=== PATIENT | female | born 1945 | race Caucasian/White ===

== ENCOUNTER 2020-04-24 12:10 | Outpatient (REF) | payer MEDICARE, SELFPAY | END 2020-04-24 12:11 | disposition home or self-care (01) | LOC: HO.LAB 12:10 | PROVIDERS: PCP Internal Medicine Geriatric Medicine; Visit Provider Internal Medicine | DX: Z20.828 Contact with and (suspected) exposure to other viral communicable diseases (principal) | CPT/HCPCS: C9803; U0003 ==

== ENCOUNTER → 2020-05-19 10:06 | Outpatient (BNVA) | payer MEDICARE, SELFPAY | PROVIDERS: PCP Internal Medicine Geriatric Medicine; Referring Provider Internal Medicine Geriatric Medicine; Visit Provider Internal Medicine Gastroenterology | DX: A04.8 Other specified bacterial intestinal infections (principal); K21.9 Gastro-esophageal reflux disease without esophagitis; D12.6 Benign neoplasm of colon, unspecified | CPT/HCPCS: Q3014 ==

== ENCOUNTER → 2020-07-03 14:21 | Outpatient (BNV) | payer MEDICARE, SELFPAY | PROVIDERS: PCP Internal Medicine Geriatric Medicine; Visit Provider Internal Medicine Medical Oncology | DX: N60.91 Unspecified benign mammary dysplasia of right breast (principal); N60.92 Unspecified benign mammary dysplasia of left breast | CPT/HCPCS: 99212; 99213; 99214 ==

== ENCOUNTER → 2020-07-29 14:57 | Outpatient (BNVA) | payer MEDICARE, SELFPAY | PROVIDERS: PCP Internal Medicine Geriatric Medicine; Visit Provider Surgery | DX: N60.91 Unspecified benign mammary dysplasia of right breast (principal); N60.92 Unspecified benign mammary dysplasia of left breast | CPT/HCPCS: 99212 ==

== ENCOUNTER → 2020-08-29 10:43 | Outpatient (BNVA) | payer MEDICARE, SELFPAY | PROVIDERS: PCP Internal Medicine Geriatric Medicine; Visit Provider Internal Medicine Gastroenterology | DX: A04.8 Other specified bacterial intestinal infections (principal); D12.6 Benign neoplasm of colon, unspecified; F17.200 Nicotine dependence, unspecified, uncomplicated; Z71.6 Tobacco abuse counseling | CPT/HCPCS: 99212 ==

== ENCOUNTER 2020-09-19 10:58 | Outpatient (REF) | payer MEDICARE, SELFPAY ==
--- NOTE | ~2020-09-19 | MM_ITS ---
EXAMINATION: BONE DENSITOMETRY CLINICAL INDICATION: Screening for osteoporosis. COMPARISON: Previous BD dated 01/13/2016 and baseline BD dated 06/16/2007. TECHNIQUE: Using a [employer] DXA System (software version: 13.1) manufactured by [employer], dual-energy x-ray absorptiometry was performed of the lumbar spine and left hip. The images are of good technical quality. Summary results are attached. FINDINGS: AP SPINE L1-L4: Current: BMD 1.166 g/cm2, Z-score 1.2, T-score -0.1, normal, 4.9% increase from previous, 3.0% decrease from baseline (<5% change is not significant). Prior: BMD 1.112 g/cm2. Baseline: BMD 1.202 g/cm2. LEFT FEMUR, NECK: Current: BMD 0.901 g/cm2, Z-score 0.6, T-score -1.0, normal. Prior: BMD 0.915 g/cm2. Baseline: BMD 0.955 g/cm2. LEFT FEMUR, TOTAL: Current: BMD 1.083 g/cm2, Z-score 2.0, T-score 0.6, normal, 4.0% increase from previous, 2.2% decrease from baseline (<5% change is not significant). Prior: BMD 1.041 g/cm2. Baseline: BMD 1.107 g/cm2. IDENTIFIED RISK FACTORS: Height loss, tobacco use (current smoker), menopause. HISTORY OF FRACTURE: None listed. MEDICATIONS: Evista. MM/XR DEXA axial skeleton IMPRESSION: 1. DIAGNOSIS: Normal bone density based on the lowest T-score value of -1.0 in the femoral neck applying World Health Organization criteria. 2. 10-YEAR FRACTURE RISK PREDICTION, FRAX: Major osteoporotic fracture (clinical spine, forearm, hip or shoulder) 5.1%. Hip fracture 1.0%. 3. Treatment Recommendations: NOF guidelines recommend consideration for treatment in postmenopausal women and men age 50 and older presenting with the following: -A hip or vertebral (clinical or morphometric) fracture. -T-score less than or equal to -2.5 at the femoral neck or spine after appropriate evaluation to exclude secondary causes. -Low bone mass at the hip or spine and a 10-year fracture probability by FRAX of greater than or equal to 3% for hip fracture or greater than or equal to 20% for major osteoporotic fracture based on the [place] adapted WHO algorithm. 4. Other Recommendations: All treatment decisions require clinical judgment and consideration of individual patient factors, including patient preferences, comorbidities, previous drug use, risk factors not captured in the FRAX model (e.g. frailty, falls, vitamin D deficiency, increased bone turnover, interval significant decline in bone density) and possible under or overestimation of fracture risk by FRAX. FUTURE SCAN RECOMMENDATION: People with diagnosed cases of osteoporosis or at high risk for fracture should have regular bone mineral density tests. For patients eligible for Medicare, routine testing is allowed once every 2 years. The testing frequency can be increased to one year for patients who have rapidly progressing disease, those who are receiving or discontinuing medical therapy to restore bone mass, or have additional risk factors.
--- NOTE | ~2020-09-19 | MM_ITS ---
EXAMINATION: MM SCREENING DIGITAL BREAST TOMOSYNTHESIS, BILATERAL CLINICAL INFORMATION: Screening. Asymptomatic. Prior history left breast cancer. 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 COMPARISON: Mammography: 07/27/2019, 07/21/2018, 06/22/2017, 06/15/2016, MRI breasts 06/01/2018 TECHNIQUE: Digital breast tomosynthesis is performed in both the craniocaudal and mediolateral oblique views along with computer-aided detection (CAD). Synthesized 2D images are generated from the tomosynthesis. FINDINGS: The breasts are extremely dense, which lowers the sensitivity of mammography (ACR BI-RADS breast composition Category d). Parenchymal pattern is similar to prior studies. There are postsurgical changes left breast 11:00 position with stable scarring and benign coarse dystrophic calcifications in the scar. There is stable parenchymal asymmetry upper right breast on MLO view. Neither breast shows interval mass or architectural abnormality or abnormal calcifications. No developing density. There are scattered round benign calcifications in each breast. The axilla are unremarkable. MM/MM tomosynthesis screening BI IMPRESSION: No significant changes from prior studies. ASSESSMENT: BI-RADS 2: Benign RECOMMENDATION: Routine annual mammography screening. This patient's information was entered into a reminder system with a target due date for their next mammogram.
== END 2020-09-19 10:59 | disposition home or self-care (01) ==
LOC: HO.MAMMO 10:58
PROVIDERS: Visit Provider Advanced Practice Midwife
DX: Z12.31 Encounter for screening mammogram for malignant neoplasm of breast (principal); Z13.820 Encounter for screening for osteoporosis; N62 Hypertrophy of breast; F17.210 Nicotine dependence, cigarettes, uncomplicated; R29.890 Loss of height; Z78.0 Asymptomatic menopausal state
CPT/HCPCS: 77063; 77067; 77080

== ENCOUNTER 2020-11-05 14:35 | Outpatient (REF) | payer MEDICARE, SELFPAY ==
--- NOTE | ~2020-11-05 | MR_ITS ---
EXAMINATION: MR BREAST WITHOUT AND WITH CONTRAST, BILATERAL CLINICAL INFORMATION: High-risk screening. History of left breast cancer. History of lobular neoplasia, right breast. COMPARISON: MRI 06/01/2018 TECHNIQUE: Imaging was performed with a dedicated breast coil. Prior to the administration of contrast, bilateral axial T1 and bilateral axial T2 weighted sequences were obtained. After the uneventful administration of?7 mL of Gadavist, dynamic contrast-enhanced VIBRANT series through the breasts in the axial plane were performed. Subtracted images were performed and reviewed. A delayed sagittal sequence through both breasts was acquired. Additionally, CAD post-processing, including maximum intensity projections, 3-D reconstructions and kinetic analysis, were performed an independent workstation and reviewed by the interpreting radiologist is a portion of this exam. FINDINGS: The patient's fibroglandular tissue demonstrates minimal background enhancement. LEFT BREAST: Architectural distortion in the 10:00 position of the left breast at the site of previous lumpectomy demonstrates no associated enhancement on review the postcontrast images. No suspicious masslike or non-masslike enhancement. No abnormal skin thickening or nipple retraction. No abnormal architectural distortion. Review of the T2 weighted images demonstrates no fibrocystic changes or dilated ducts. Review of kinetic images reveals no additional findings. RIGHT BREAST: No suspicious masslike or non-masslike enhancement. No abnormal skin thickening or nipple retraction. No abnormal architectural distortion. Review of the T2 weighted images demonstrates no fibrocystic changes or dilated ducts. Review of kinetic images reveals no additional findings. There is enlargement of multiple left axillary lymph nodes. For example, there is a rounded lymph node with effacement of the fatty hilum just along the lateral aspect of the pectoralis minor muscle measuring up to 0.9 cm size (image 7, series 4). Additional lymph node located more anteriorly measures up to approximately 1.3 cm in size and demonstrates cortical thickening up to 0.5 cm (image 8, series 4). Vaccination status unknown. No abnormal right axillary or internal mammary chain lymph nodes. Limited views of the chest and abdomen are unremarkable. MR/MR breast BI wo/w con IMPRESSION: 1. Asymmetrically enlarged left axillary lymph nodes. Recommend diagnostic ultrasound evaluation. 2. No MR specific evidence of malignancy in either breast. ASSESSMENT: BI-RADS 0 - Incomplete. RECOMMENDATIONS: Left axillary ultrasound.
[2020-11-05 15:46] LABS: Blood Urea Nitrogen 10 mg/dL (9-16); Estimated Glomerular Filt Rate > 60
== END 2020-11-05 14:36 | disposition home or self-care (01) ==
LOC: HO.MRI 14:35
PROVIDERS: Visit Provider Advanced Practice Midwife
DX: N62 Hypertrophy of breast (principal)
CPT/HCPCS: 36415; 77049; 82565; 84520; A9585

== ENCOUNTER 2020-11-11 09:02 | Outpatient (REF) | payer MEDICARE, SELFPAY ==
[2020-11-11 10:01] LABS: Hematocrit 38.4 % (37-47); Hemoglobin 12.8 g/dl (12.0-16.0); Mean Corpuscular HGB Conc 33.3 g/dl (31.0-35.0); Mean Corpuscular Hemoglobin 29.9 pg (27.0-33.0); Mean Corpuscular Volume 89.7 fL (80-98); Platelet Count 208 X10*3/uL (160-400); Red Blood Count 4.28 X10*6/uL (4.20-5.50); Red Cell Distribution Width 14.6 % (11.0-16.0); White Blood Count 5.4 X10*3/uL (4.8-10.8)
[2020-11-11 10:35] LABS: Alanine Aminotransferase 13 U/L (0-31); Albumin Level 4.4 g/dL (3.5-5.0); Alkaline Phosphatase 47 U/L (39-117); Anion Gap 13 (12-20); Aspartate Amino Transferase 18 U/L (5-31); Bilirubin Total 0.7 mg/dL (0.0-1.0); Blood Urea Nitrogen 10 mg/dL (9-16); Calcium 9.2 mg/dL (8.4-10.2); Carbon Dioxide 24 mmol/L (22-29); Chloride 109 mmol/L (96-108); Cholesterol 176 mg/dL; Estimated Glomerular Filt Rate > 60; Glucose Random 120 mg/dL (60-115); HDL Cholesterol 36 mg/dL; LDL Cholesterol Calculated 108 mg/dl; Potassium 3.7 mmol/L (3.3-5.1); Sodium 142 mmol/L (135-145); Total Protein 6.9 g/dL (6.5-8.0); Triglycerides 161 mg/dL
== END 2020-11-11 09:03 | disposition home or self-care (01) ==
LOC: HO.LAB 09:02
PROVIDERS: PCP Internal Medicine Geriatric Medicine; Visit Provider Internal Medicine Geriatric Medicine
DX: E78.00 Pure hypercholesterolemia, unspecified (principal); I10 Essential (primary) hypertension
CPT/HCPCS: 36415; 80053; 80061; 85027

== ENCOUNTER → 2020-11-13 13:22 | Outpatient (BNVA) | payer MEDICARE, SELFPAY | PROVIDERS: Visit Provider Urology | DX: R39.15 Urgency of urination (principal); R35.0 Frequency of micturition; N39.3 Stress incontinence (female) (male) | CPT/HCPCS: Q3014 ==

== ENCOUNTER 2020-11-14 10:53 | Outpatient (REF) | payer MEDICARE, SELFPAY ==
--- NOTE | ~2020-11-14 | US_ITS ---
EXAMINATION: US DIAGNOSTIC ULTRASOUND BREAST, LEFT CLINICAL INFORMATION: Asymmetrically enlarged left axillary lymph nodes on MRI. COMPARISON: MRI of 11/05/2020 and mammography of 09/19/2020. TECHNIQUE: Ultrasound of the breast is performed with real-time kat scale imaging and color Doppler. FINDINGS: Within the left axilla there are approximately 4 lymph nodes present some of which have thickened cortex to up to 6 mm in diameter. The fatty clefts appear unremarkable without infiltration. No lobulation of the cortex is identified. The patient states that she had her COVID vaccine injection in her left arm. Recommend 3 to 6 month follow-up left axillary ultrasound. Results are discussed with the patient at time of visit. US/US breast LT limited IMPRESSION: Cortical thickening without lobulation or fatty hilum infiltration within some left axillary lymph nodes. Patient had injection in her left arm. Recommend 3 to 6 month follow-up ultrasound. ASSESSMENT: BI-RADS 3: Probably Benign. RECOMMENDATION: Diagnostic ultrasound in 3 to 6 months. This patient's information was entered into a reminder system with a target due date for their next mammogram.
== END 2020-11-14 10:54 | disposition home or self-care (01) ==
LOC: HO.MAMMO 10:53
PROVIDERS: PCP Internal Medicine Geriatric Medicine; Visit Provider Advanced Practice Midwife
DX: N62 Hypertrophy of breast (principal); R59.0 Localized enlarged lymph nodes; R92.8 Other abnormal and inconclusive findings on diagnostic imaging of breast
CPT/HCPCS: 76642

== ENCOUNTER → 2020-11-20 14:38 | Outpatient (BNVA) | payer MEDICARE, SELFPAY | PROVIDERS: PCP Internal Medicine Geriatric Medicine; Referring Provider Internal Medicine Geriatric Medicine; Visit Provider Surgery | DX: N60.91 Unspecified benign mammary dysplasia of right breast (principal); N60.92 Unspecified benign mammary dysplasia of left breast | CPT/HCPCS: 99212 ==

== ENCOUNTER 2020-12-12 12:49 | Outpatient (REF) | payer MEDICARE, SELFPAY | END 2020-12-12 12:50 | disposition home or self-care (01) | LOC: HO.LNP 12:49 | PROVIDERS: PCP Internal Medicine Geriatric Medicine; Referring Provider Internal Medicine Geriatric Medicine; Visit Provider Internal Medicine Gastroenterology | DX: A04.8 Other specified bacterial intestinal infections (principal); D12.6 Benign neoplasm of colon, unspecified | CPT/HCPCS: 83013 ==

== ENCOUNTER → 2021-01-06 13:29 | Outpatient (BNVA) | payer MEDICARE, SELFPAY | PROVIDERS: PCP Internal Medicine Geriatric Medicine; Visit Provider Urology | DX: R35.0 Frequency of micturition (principal); R39.15 Urgency of urination; N39.3 Stress incontinence (female) (male) | CPT/HCPCS: 52000; 99212 ==

== ENCOUNTER 2021-01-27 14:34 | Outpatient (REF) | payer MEDICARE, SELFPAY ==
--- NOTE | ~2021-01-27 | XR_ITS ---
EXAMINATION: XR SHOULDER, RIGHT CLINICAL INFORMATION: Right shoulder pain. COMPARISON: None TECHNIQUE: AP external rotation, Grashey, scapular Y, and axillary views of the right shoulder. FINDINGS: Moderate right acromio clavicular degenerative joint changes are seen. The right glenohumeral joint is unremarkable. Mild degenerative changes are seen at the rotator cuff insertion on the greater tuberosity. There is no acute fracture or dislocation. The soft tissues are unremarkable. XR/XR shoulder RT min 2V IMPRESSION: Degenerative joint changes as detailed above without acute abnormality.
== END 2021-01-27 14:35 | disposition home or self-care (01) ==
LOC: HO.XRAY 14:34
PROVIDERS: PCP Internal Medicine Geriatric Medicine; Visit Provider Internal Medicine Geriatric Medicine
DX: M25.511 Pain in right shoulder (principal)
CPT/HCPCS: 73030

== ENCOUNTER 2021-02-17 13:46 | Outpatient (REF) | payer MEDICARE, SELFPAY ==
--- NOTE | ~2021-02-17 | US_ITS ---
EXAMINATION: US BREAST/AXILLA, LEFT CLINICAL INFORMATION: 75-year-old with mild thickening left axillary nodes following recent second dose COVID vaccination late August 2020. Follow-up left axillary ultrasound. No palpable abnormality or tenderness noted by patient. COMPARISON: Digital breast tomosynthesis 09/19/2020, MRI breasts 11/05/2020, targeted left axillary ultrasound 11/14/2020. TECHNIQUE: Ultrasound left axilla raises performed using grayscale imaging and color Doppler. FINDINGS: There is no interval or persistent left axillary adenopathy. There are several nodes demonstrated in the left axilla all with normal santos architecture and normal color flow pattern. Cortical thickness is under 3.5 mm, previously up to 6 mm on prior ultrasound. Results are discussed with the patient at time of visit. US/US breast LT limited IMPRESSION: Left axillary node decreased from prior exam. No axillary adenopathy. ASSESSMENT: BI-RADS 2: Benign RECOMMENDATION: Routine annual mammography screening. This patient's information was entered into a reminder system with a target due date for their next mammogram.
== END 2021-02-17 13:47 | disposition home or self-care (01) ==
LOC: HO.MAMMO 13:46
PROVIDERS: PCP Internal Medicine Geriatric Medicine; Visit Provider Advanced Practice Midwife
DX: N63.32 Unspecified lump in axillary tail of the left breast (principal)
CPT/HCPCS: 76642

== ENCOUNTER → 2021-03-31 14:59 | Outpatient (BNVA) | payer MEDICARE, SELFPAY | PROVIDERS: PCP Internal Medicine Geriatric Medicine; Referring Provider Internal Medicine Geriatric Medicine; Visit Provider Surgery | DX: R59.0 Localized enlarged lymph nodes (principal); N60.92 Unspecified benign mammary dysplasia of left breast; N60.91 Unspecified benign mammary dysplasia of right breast; E78.00 Pure hypercholesterolemia, unspecified; I10 Essential (primary) hypertension; F17.210 Nicotine dependence, cigarettes, uncomplicated; Z82.49 Family history of ischemic heart disease and other diseases of the circulatory system; Z80.1 Family history of malignant neoplasm of trachea, bronchus and lung; Z88.6 Allergy status to analgesic agent; Z88.0 Allergy status to penicillin | CPT/HCPCS: 99212 ==

== ENCOUNTER 2021-04-14 14:00 | Outpatient (RCR) | payer MEDICARE, SELFPAY | END 2021-04-15 10:28 | disposition home or self-care (01) | LOC: HO.PT 14:00 | PROVIDERS: PCP Internal Medicine Geriatric Medicine; Visit Provider Internal Medicine Geriatric Medicine | DX: M25.511 Pain in right shoulder (principal) | CPT/HCPCS: 97110; 97162 ==

== ENCOUNTER 2021-05-25 12:43 | Outpatient (REF) | payer OTHER, SELFPAY ==
--- NOTE | ~2021-05-25 | US_ITS ---
EXAMINATION: US DIAGNOSTIC ULTRASOUND BREAST/AXILLA, LEFT CLINICAL INFORMATION: History left breast cancer and lobular neoplasia contralateral right breast. Prominent left axillary nodes on MR breast screening 11/05/2020. Second dose COVID vaccination on left late August 2020 and booster dose on left April 2021. COMPARISON: Ultrasound left breast/axilla 02/17/2021, 11/14/2020. TECHNIQUE: Ultrasound of the left axilla and posterior upper outer left breast is performed using grayscale imaging and color Doppler. FINDINGS: There is no interval left lymphadenopathy. Left axillary nodes are stable from prior exam. There is normal cortical thickness, under 3.5 mm and normal color flow pattern as before. No suspicious finding. Results are discussed with the patient at time of visit. US/US breast LT limited IMPRESSION: No left axillary adenopathy. ASSESSMENT: BI-RADS 2: Benign RECOMMENDATION: 1. Annual bilateral mammography. 2. Additional adjunct high risk screening breast MR as clinical risk factors warrant. This patient's information was entered into a reminder system with a target due date for their next mammogram.
== END 2021-05-25 12:44 | disposition home or self-care (01) ==
LOC: HO.MAMMO 12:43
PROVIDERS: Visit Provider Advanced Practice Midwife
DX: N64.89 Other specified disorders of breast (principal); Z85.3 Personal history of malignant neoplasm of breast
CPT/HCPCS: 76642

== ENCOUNTER → 2021-07-10 08:35 | Outpatient (BNVA) | payer OTHER, SELFPAY | PROVIDERS: PCP Internal Medicine Geriatric Medicine; Visit Provider Urology | DX: R35.0 Frequency of micturition (principal); R39.15 Urgency of urination; N95.2 Postmenopausal atrophic vaginitis | CPT/HCPCS: Q3014 ==

== ENCOUNTER 2021-08-03 10:59 | Outpatient (REF) | payer OTHER, SELFPAY ==
--- NOTE | ~2021-08-03 | XR_ITS ---
EXAMINATION: XR SHOULDER, RIGHT CLINICAL INFORMATION: Shoulder pain COMPARISON: X-ray 01/27/2021 TECHNIQUE: AP external rotation, Grashey, scapular Y, and axillary views of the right shoulder. FINDINGS: Mild to moderate acromioclavicular arthritis. No fracture or dislocation. Mild degenerative sclerosis less lucencies in the greater tuberosity. No abnormal soft tissue calcification. XR/XR shoulder RT min 2V IMPRESSION: No acute osseous abnormality. Mild to moderate acromioclavicular arthritis.
== END 2021-08-03 11:00 | disposition home or self-care (01) ==
LOC: HO.XRAY 10:59
PROVIDERS: PCP Internal Medicine Geriatric Medicine; Visit Provider Internal Medicine Geriatric Medicine
DX: M25.511 Pain in right shoulder (principal)
CPT/HCPCS: 73030

== ENCOUNTER 2021-09-22 12:43 | Outpatient (REF) | payer OTHER, SELFPAY ==
--- NOTE | ~2021-09-22 | MM_ITS ---
EXAMINATION: MM SCREENING DIGITAL BREAST TOMOSYNTHESIS, BILATERAL CLINICAL INFORMATION: Screening. Asymptomatic. History left breast atypical lobular hyperplasia and right breast atypical lobular hyperplasia bordering on LCIS. COMPARISON: Mammography: 09/19/2020, 07/27/2019, 07/21/2018; MR breasts 11/05/2020. Ultrasound left axilla 05/25/2021, 02/17/2021, 11/14/2020. TECHNIQUE: Digital breast tomosynthesis is performed in both the craniocaudal and mediolateral oblique views along with computer-aided detection (CAD). Synthesized 2D images are generated from the tomosynthesis. FINDINGS: The breasts are extremely dense, which lowers the sensitivity of mammography (ACR BI-RADS breast composition Category d). Distribution of parenchymal tissue is similar to prior studies. There is no developing density or interval mass or architectural abnormality. Left breast again has stable scarring with benign coarse dystrophic calcification within the scar mid 11:30 o'clock. There are other punctate and moderately coarse calcifications scattered in both breasts, predominantly upper outer quadrants. The axilla are unremarkable. MM/MM tomosynthesis screening BI IMPRESSION: No significant changes from prior studies. ASSESSMENT: BI-RADS 2: Benign RECOMMENDATION: -Routine annual mammography screening. -Additional annual adjunct screening with breast MRI as clinical risk factors warrant. This patient's information was entered into a reminder system with a target due date for their next mammogram.
== END 2021-09-22 12:44 | disposition home or self-care (01) ==
LOC: HO.MAMMO 12:43
PROVIDERS: PCP Internal Medicine Geriatric Medicine; Visit Provider Internal Medicine Medical Oncology
DX: Z12.31 Encounter for screening mammogram for malignant neoplasm of breast (principal)
CPT/HCPCS: 77063; 77067

== ENCOUNTER → 2021-10-01 14:20 | Outpatient (BNVA) | payer OTHER, SELFPAY | PROVIDERS: PCP Internal Medicine Geriatric Medicine; Referring Provider Internal Medicine Geriatric Medicine; Visit Provider Surgery | DX: N60.91 Unspecified benign mammary dysplasia of right breast (principal); N60.92 Unspecified benign mammary dysplasia of left breast | CPT/HCPCS: 99212 ==

== ENCOUNTER → 2022-01-08 09:23 | Outpatient (BNVA) | payer OTHER, SELFPAY | PROVIDERS: PCP Internal Medicine Geriatric Medicine; Visit Provider Urology | DX: N95.2 Postmenopausal atrophic vaginitis (principal); N39.3 Stress incontinence (female) (male) | CPT/HCPCS: 51798; 99212 ==

== ENCOUNTER 2022-03-24 15:11 | Outpatient (REF) | payer OTHER, SELFPAY ==
--- NOTE | ~2022-03-24 | MR_ITS ---
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 History of left breast atypical lobular hyperplasia. History of right breast atypical lobular hyperplasia bordering on LCIS. COMPARISON: Portions of a previous MRI 11/05/2020. Mammography (nondiagnostic monitor review): 09/22/2021. TECHNIQUE: A 1.5 T system and a dedicated breast coil. T1-weighted sequences without fat-saturation were obtained prior to the administration of contrast. Fat-saturated T1 and T2-weighted sequences were also acquired. The patient received 6.5 mL of IV gadolinium-based contrast, Gadavist. Multiple sequential dynamic T1-weighted sequences were obtained through both breasts with fat-saturation. Subtracted images were reviewed. CAD postprocessing with 3-D reconstructions, maximum intensity projections and kinetic analysis was performed by the interpreting radiologist at an independent workstation and reviewed as a portion of this exam. FINDINGS: There is some motion artifact. Amount of Remaining Fibroglandular Signal: There is extreme fibroglandular tissue, which lowers the sensitivity of mammography (ACR BI-RADS breast composition category D).* Background Parenchymal Enhancement: Moderate. Symmetry of Background Enhancement: Symmetric. RIGHT BREAST: There are no suspicious findings. Masses: There are no suspicious enhancing masses. Non-mass Enhancement: There is no suspicious non-mass enhancement. Focus: There are no suspicious enhancing foci. Non-enhancing Findings: Associated findings: There are no suspicious associated findings. Kinetic Curve Assessment: Initial Phase: There are no suspicious areas of color signal. Delayed Phase: There are no areas of washout kinetics. LEFT BREAST: There are no suspicious findings. Masses: There are no suspicious enhancing masses. Non-mass Enhancement: There is no suspicious non-mass enhancement. Focus: There are no suspicious enhancing foci. Non-enhancing Findings: Associated Findings: There are no suspicious associated findings. There is architectural distortion consistent with postsurgical scarring. Kinetic Curve Assessment: Initial Phase: There are no areas of suspicious color signal. Delayed Phase: There are no areas of washout kinetics. The right axillary lymph nodes are morphologically normal. There is slight interval decrease in size of the lymph node abutting the lateral margin of the pectoralis minor (series 4, image 5). This does not require any further evaluation. No suspicious internal mammary lymph nodes are seen. No suspicious abnormality in the visualized portions of chest or abdomen. MR/MR breast BI wo/w con IMPRESSION: No MR evidence of malignancy. Study mildly limited by motion. Evidence of previous left breast surgery. Interval decreased size of left axillary lymph node. ASSESSMENT: Right Breast: ACR BI-RADS 1: Negative examination. Left Breast: ACR BI-RADS 2: Benign finding. RECOMMENDATIONS: Continue screening.
== END 2022-03-24 15:12 | disposition home or self-care (01) ==
LOC: HO.MRI 15:11
PROVIDERS: Visit Provider Surgery
DX: N60.91 Unspecified benign mammary dysplasia of right breast (principal); N60.92 Unspecified benign mammary dysplasia of left breast
CPT/HCPCS: 77049; A9585

== ENCOUNTER → 2022-03-29 13:33 | Outpatient (BNVA) | payer OTHER, SELFPAY | PROVIDERS: PCP Internal Medicine Geriatric Medicine; Visit Provider Surgery | DX: N60.91 Unspecified benign mammary dysplasia of right breast (principal); N60.92 Unspecified benign mammary dysplasia of left breast | CPT/HCPCS: 99212 ==

== ENCOUNTER 2022-04-09 13:17 | Outpatient (REF) | payer OTHER, SELFPAY ==
--- NOTE | ~2022-04-09 | CT_ITS ---
EXAMINATION: CT HEAD WITHOUT CONTRAST CLINICAL INFORMATION: Visual disturbance. Dizziness and giddiness. COMPARISON: Head CT 06/19/2013. TECHNIQUE: Contiguous axial imaging was performed from the skull base to vertex without intravenous administration of contrast. This CT examination was performed using dose optimization techniques as appropriate, variously including the following: *Automated exposure control *Adjustment of mA and/or kV according to patient size (this includes techniques or standardized protocols for targeted exams where dose is matched to indication/reason for exam; i.e. extremities or head) *Use of iterative reconstruction technique DLP: 666 mGy-cm. FINDINGS: There is no intracranial hemorrhage, large infarction, or mass lesion. There is no extra-axial collection. The ventricles are normal in size and configuration without evidence of hydrocephalus. The visualized paranasal sinuses and mastoid air cells are clear. CT/CT head/brain wo IV con IMPRESSION: No acute intracranial abnormality.
== END 2022-04-09 13:18 | disposition home or self-care (01) ==
LOC: HO.CT 13:17
PROVIDERS: PCP Internal Medicine Geriatric Medicine; Visit Provider Internal Medicine Geriatric Medicine
DX: H53.8 Other visual disturbances (principal); R42 Dizziness and giddiness; R51.9 Headache, unspecified; S09.90XD Unspecified injury of head, subsequent encounter
CPT/HCPCS: 70450

== ENCOUNTER 2022-07-06 16:42 | Emergency (ER) | payer OTHER, SELFPAY ==
--- NOTE | ~2022-07-06 | CT_ITS ---
EXAMINATION: CT HEAD WITHOUT CONTRAST CLINICAL INFORMATION: Head strike, rule out adrenal abnormality. COMPARISON: 04/09/[address] scan[address] TECHNIQUE: Contiguous axial imaging was performed from the skull base to vertex without intravenous administration of contrast. Coronal and sagittal reformatted images were obtained. This CT examination was performed using dose optimization techniques as appropriate, variously including the following: *Automated exposure control *Adjustment of mA and/or kV according to patient size (this includes techniques or standardized protocols for targeted exams where dose is matched to indication/reason for exam; i.e. extremities or head) *Use of iterative reconstruction technique DLP: 571 mGy-cm FINDINGS: The cortical sulci are normal. The lateral ventricles are symmetrical. Periventricular microvascular changes are seen. The third and fourth ventricles are in their normal midline position. The basilar and prepontine cisterns are unremarkable. There is no acute intra or extracerebral abnormality. There is no mass effect or midline shift. Sections through the bony calvarium are unremarkable. The paranasal sinuses are clear. The bony orbits and orbital contents are unremarkable. CT/CT head/brain wo IV con IMPRESSION: No acute intracranial pathology.
--- NOTE | ~2022-07-06 | XR_ITS ---
EXAMINATION: LEFT FEMUR, LEFT KNEE, LEFT TIB-FIB, LUMBAR SPINE CLINICAL INFORMATION: Fall with pain COMPARISON: None TECHNIQUE: 2 views left femur, 5 views left knee, 2 views left tib-fib, 3 views lumbosacral spine FINDINGS: Lumbar spine: Some mild spondylitic endplate changes are seen. There is minimal grade 1 anterolisthesis of L4 upon L5. Vertebral body heights are maintained. There is some mild disc space narrowing at L4-L5. No acute fractures are seen. Vascular calcifications are present. Left femur: No fracture or bony destructive lesions are seen. The visualized left hip is unremarkable. Left knee: No significant bone, joint or soft tissue abnormality is seen. Vascular calcifications seen in the popliteal vein. No fractures or joint effusions. Left tib-fib: No significant bone, joint or soft tissue abnormality is seen. No fracture or dislocations are detected. XR/XR femur LT 2V IMPRESSION: No evidence of a traumatic osseous injury. Mild degenerative changes in the lumbar spine with grade 1 anterolisthesis of L4 upon L5.
--- NOTE | ~2022-07-06 | XR_ITS ---
EXAMINATION: LEFT FEMUR, LEFT KNEE, LEFT TIB-FIB, LUMBAR SPINE CLINICAL INFORMATION: Fall with pain COMPARISON: None TECHNIQUE: 2 views left femur, 5 views left knee, 2 views left tib-fib, 3 views lumbosacral spine FINDINGS: Lumbar spine: Some mild spondylitic endplate changes are seen. There is minimal grade 1 anterolisthesis of L4 upon L5. Vertebral body heights are maintained. There is some mild disc space narrowing at L4-L5. No acute fractures are seen. Vascular calcifications are present. Left femur: No fracture or bony destructive lesions are seen. The visualized left hip is unremarkable. Left knee: No significant bone, joint or soft tissue abnormality is seen. Vascular calcifications seen in the popliteal vein. No fractures or joint effusions. Left tib-fib: No significant bone, joint or soft tissue abnormality is seen. No fracture or dislocations are detected. XR/XR knee LT 4V IMPRESSION: No evidence of a traumatic osseous injury. Mild degenerative changes in the lumbar spine with grade 1 anterolisthesis of L4 upon L5.
--- NOTE | ~2022-07-06 | XR_ITS ---
EXAMINATION: LEFT FEMUR, LEFT KNEE, LEFT TIB-FIB, LUMBAR SPINE CLINICAL INFORMATION: Fall with pain COMPARISON: None TECHNIQUE: 2 views left femur, 5 views left knee, 2 views left tib-fib, 3 views lumbosacral spine FINDINGS: Lumbar spine: Some mild spondylitic endplate changes are seen. There is minimal grade 1 anterolisthesis of L4 upon L5. Vertebral body heights are maintained. There is some mild disc space narrowing at L4-L5. No acute fractures are seen. Vascular calcifications are present. Left femur: No fracture or bony destructive lesions are seen. The visualized left hip is unremarkable. Left knee: No significant bone, joint or soft tissue abnormality is seen. Vascular calcifications seen in the popliteal vein. No fractures or joint effusions. Left tib-fib: No significant bone, joint or soft tissue abnormality is seen. No fracture or dislocations are detected. XR/XR lumbar spine 2-3V IMPRESSION: No evidence of a traumatic osseous injury. Mild degenerative changes in the lumbar spine with grade 1 anterolisthesis of L4 upon L5.
--- NOTE | ~2022-07-06 | XR_ITS ---
EXAMINATION: XR CHEST CLINICAL INFORMATION: Fall with injury to chest COMPARISON: 07/11/2018 TECHNIQUE: Frontal view of the chest was obtained. FINDINGS: No significant abnormality is noted involving the heart, lungs, mediastinum, bony thorax or soft tissues. ACDF hardware is partially visualized. XR/XR chest 1V IMPRESSION: Unremarkable examination.
--- NOTE | ~2022-07-06 | XR_ITS ---
EXAMINATION: LEFT FEMUR, LEFT KNEE, LEFT TIB-FIB, LUMBAR SPINE CLINICAL INFORMATION: Fall with pain COMPARISON: None TECHNIQUE: 2 views left femur, 5 views left knee, 2 views left tib-fib, 3 views lumbosacral spine FINDINGS: Lumbar spine: Some mild spondylitic endplate changes are seen. There is minimal grade 1 anterolisthesis of L4 upon L5. Vertebral body heights are maintained. There is some mild disc space narrowing at L4-L5. No acute fractures are seen. Vascular calcifications are present. Left femur: No fracture or bony destructive lesions are seen. The visualized left hip is unremarkable. Left knee: No significant bone, joint or soft tissue abnormality is seen. Vascular calcifications seen in the popliteal vein. No fractures or joint effusions. Left tib-fib: No significant bone, joint or soft tissue abnormality is seen. No fracture or dislocations are detected. XR/XR tibia fibula LT 2V IMPRESSION: No evidence of a traumatic osseous injury. Mild degenerative changes in the lumbar spine with grade 1 anterolisthesis of L4 upon L5.
[2022-07-06 17:36] VITALS: BP 140/59; PULSE 79; RESP 20; TEMP 36.4; O2SAT 96; BMI 28.1
--- NOTE | 2022-07-06 17:38 | ED_ITS ---
HPI - General Adult General Chief complaint: Fall <SATNAM Reis Last Filed: 07/12/22 12:33> Stated complaint: fell coming out of elevator/ hurt left knee <SATNAM Reis Last Filed: 07/12/22 12:33> Time Seen by Provider: 07/06/22 20:20 <SATNAM Reis Last Filed: 07/12/22 12:33> Source: patient <SATNAM Yan Last Filed: 07/06/22 22:38> Mode of arrival: ambulatory <SATNAM Yan Last Filed: 07/06/22 22:38> Limitations: no limitations <SATNAM Yan Last Filed: 07/06/22 22:38> History of Present Illness HPI narrative: This is a 76-year-old male no significant medical history presenting to the emergency department with complaints of left-sided knee, hip, thigh, lower back pain and left lower extremity pain status post slipping while stepping out of an elevator here on the 4th floor slipped on water, patient tells me she landed on her left side. She reports pain worse with movement better at rest. Tells me fall happened prior to arrival. When she fell she is not hit her head or lose consciousness. Patient not on blood thinners. Patient ambulatory into the department without difficulty. Denies numbness, tingling, headache, vision changes, weakness, nausea, vomiting, abdominal pain, chest pain, shortness of breath, saddle paresthesias, urine/bowel incontinence/retention, weakness. <SATNAM Yan Last Filed: 07/06/22 22:38> Related Data Home medications: Home Medications Medication Instructions Recorded Confirmed hydrochlorothiazide 25 mg tablet 1 tab PO DAILY 07/03/20 07/09/22 ondansetron 4 mg disintegrating 1 tab PO Q6H PRN nausea/vomiting 07/03/20 07/09/22 tablet pantoprazole 40 mg tablet,delayed 1 tab PO DAILY 07/03/20 07/09/22 release simvastatin 20 mg tablet 1 tab PO BEDTIME 07/03/20 07/09/22 tramadol 50 mg tablet 1 tab PO Q6H PRN pain 07/03/20 07/09/22 amlodipine 5 mg tablet 5 mg PO DAILY 07/10/21 07/09/22 Previous Rx's Medication Instructions Recorded levofloxacin 250 mg tablet 250 mg PO Q24H #14 tabs 05/19/20 metronidazole 500 mg tablet 500 mg PO TID 14 days #42 tabs 05/19/20 mirabegron 25 mg tablet,extended 25 mg PO DAILY 90 days #90 tabs 01/08/22 release 24 hr (Myrbetriq) estradiol 0.01% (0.1 mg/gram) See Rx Instructions .Route DAILY 03/22/22 vaginal cream #42.5 grams cyclobenzaprine 10 mg tablet 5 mg PO BEDTIME PRN muscle spasm 07/06/22 #7 tabs lidocaine 5 % topical patch 1 patch topical DAILY PRN pain #15 07/06/22 ea raloxifene 60 mg tablet 60 mg PO DAILY #90 tabs 07/09/22 <SATNAM Reis - Last Filed: 07/12/22 12:33> Allergies/adverse reactions: Allergies Allergy/AdvReac Type Severity Reaction Status Date / Time aspirin [ASPIRIN] Allergy Unknown hives, rash Verified 07/09/22 15:44 Penicillins [PENICILLINS] Allergy Unknown hives Verified 07/09/22 15:44 <SATNAM Reis - Last Filed: 07/12/22 12:33> Review of Systems Review of Systems: Constitutional : No Weight loss, No Fever, No Chills, No Fatigue, No Malaise ENT/Mouth : No sore throat, No Rhinorrhea Eyes: No Eye Pain, No Swelling, No Redness Cardiovascular : No Chest Pain, No SOB, No Dyspnea on Exertion, No Orthopnea, No Edema, No Palpitations Respiratory : No Cough, No Sputum, No Wheezing Gastrointestinal : No Nausea, No Vomiting, No Diarrhea, No Constipation, No abdominal Pain, No Hematochezia, No Melena Genitourinary : No Dysuria, No Urinary Frequency, No Hematuria, Musculoskeletal : + joint pain, No Myalgias, No Joint Swelling Skin : No Skin Lesions, No rash Neuro : No Weakness, No Numbness, No Dizziness, No Headache Psych : No Anxiety/Panic, No Depression All other systems reviewed and are negative <SATNAM Yan Last Filed: 07/06/22 22:38> Yes all other systems are reviewed and are negative <SATNAM Yan - Last Filed: 07/06/22 22:38> [facility] Past Medical History Attestation statement: The following information was validated with the patient. <SATNAM Yan - Last Filed: 07/06/22 22:38> Source: old records reviewed and nursing notes reviewed <SATNAM Yan - Last Filed: 07/06/22 22:38> Medical History: Medical History Asthma GERD (gastroesophageal reflux disease) Hypercholesterolemia Hypertension <SATNAM Reis - Last Filed: 07/12/22 12:33> Surgical History: Surgical History History of bilateral carpal tunnel release History of breast lump/mass excision (2002) History of cervical spinal surgery History of colonoscopy History of laparoscopic cholecystectomy (08/06/08) History of local excision of skin lesion (03/22/19) History of right breast biopsy (09/26/13) History of tonsillectomy History of tubal ligation Hx of endoscopy Hx of right breast biopsy (02/2016) <SATNAM Reis - Last Filed: 07/12/22 12:33> Family History Family History: Family History Father Family history of due to heart problem at 50 years of age or younger History of cardiovascular disorder Mother Hx of cancer of lung <SATNAM Reis - Last Filed: 07/12/22 12:33> Social History Social History: Social History (Updated 07/09/22 @ 15:43 by Jossy Freitas CMA) Household Members: Spouse Housing: House Are you a primary floor care specialist to a significant other at home: No Do you presently have visiting nurse or other home services: No Alcohol intake: current Alcohol intake frequency: does not drink Patient Tobacco Use Status: Current everyday Tobacco user Use of substances other than those prescribed or required for medical reasons: No Have you been hit, kicked, punched, or otherwise hurt by someone within the past year? If so, by whom?: No Do you feel safe in your current relationship?: Yes Do you have thoughts of harming others: None Do you have a plan to hurt others: No Plan Do you have the means to hurt others: No Recently lost weight without trying: No Eating poorly because of decreased appetite: No Patient : No service: No Current occupational status: unemployed <SATNAM Reis - Last Filed: 07/12/22 12:33> Physical Exam ED Vital Signs: Vital Signs - 24 hr 07/06/22 17:36 07/06/22 19:23 07/06/22 22:14 Temperature 97.5 F 98.5 F Pulse Rate 79 70 70 Respiratory Rate 20 18 16 Blood Pressure 140/59 H 149/62 H 150/64 H Pulse Oximetry 96 99 98 Oxygen Delivery Method Room Air Room Air Room Air BMI result Body Mass Index 28.1 <SATNAM Reis - Last Filed: 07/12/22 12:33> Vital Signs - 24 hr 07/06/22 17:36 07/06/22 19:23 07/06/22 22:14 Temperature 97.5 F 98.5 F Pulse Rate 79 70 70 Respiratory Rate 20 18 16 Blood Pressure 140/59 H 149/62 H 150/64 H Pulse Oximetry 96 99 98 Oxygen Delivery Method Room Air Room Air Room Air BMI result Body Mass Index 28.1 vss <SATNAM Yan - Last Filed: 07/06/22 22:38> Appearance: Alert.? Oriented X3.? No acute distress.? Head: Normocephalic, atraumatic, no step-offs or deformities Neck: Normal inspection.? Neck supple.? CVS: Normal heart rate and rhythm.? Pulses normal.? No signs of flail chest. Respiratory: No respiratory distress.? Breath sounds normal.? Abdomen: Soft and nontender.? Skin: Skin warm and dry.? Normal skin color.? Normal skin turgor.? Extremities: No lower extremity edema.? No calf ttp. 5/5 strength to bilateral upper and lower extremities 2+ patellar reflexes equal bilateral. Full range of motion to bilateral hips, thighs, knees, lower extremities pain free. 2+ dorsalis pedis, anterior tibialis, posterior tibialis pulses equal bilateral. Normal DTRs to bilateral lower extremities. Normal strength. Back: No midline tenderness, no C-spine tenderness, full range of motion, no CVA tenderness bilaterally + bilateral lumbar paraspinous tenderness to palpation. Neuro: Oriented X 3.? No motor deficit.? No sensory deficit. CN 2-12 intact . No saddle paresthesias. Ambulating with steady gait normal coordination. Normal [id number]. Negative Romberg and pronator drift. GCS 15 NIHSS 0 <SATNAM Yan Last Filed: 07/06/22 22:38> Course Course Course Narrative: RME: 76 yold female presents to the ED for left hip, back pain, left thigh, knee, and leg pain. patient slipped coming out of elevator. patient denies hitting head or loss of conscisness. Xrays ordered <SATNAM Reis Last Filed: 07/12/22 12:33> Reevaluation(s) Reevaluation #1: X-ray of lumbar spine with spondylitic endplate changes. Minimal grade anterolisthesis of L4 upon L5. No fx or dislocations. Left femur no fx or dislocation. Left knee unremarkable. Left tib-fib no significant bone, joint or soft tissue abnormality is seen no fx or dislocation. Patient requesting head CT and chest x-ray. She tells me she did not hit her head however now has a slight headache. Feels like her typical. Neuro exam remains nonfocal. <SATNAM Yan - Last Filed: 07/06/22 22:38> Time: 20:56 <SATNAM Yan Last Filed: 07/06/22 22:38> Reevaluation #2: Chest x-ray unremarkable. Head CT pending. <SATNAM Yan Last Filed: 07/06/22 22:38> Time: 22:28 <SATNAM Yan Last Filed: 07/06/22 22:38> Reevaluation #3: CT of head with no acute intracranial pathology. At this time likely sprain strains, patient is complaining of headache, she tells me she did not hit her head however there is a possibility she could have hit her head, concerns for possible concussion without loss of consciousness. Educated on post concussive syndrome and provided with handouts. At this time patient will be d ischarged home. At time of discharge patient ambulatory without difficulty NIH stroke scale 0. Appears well, comfortable. Educated patient on diagnosis and treatment plan, answered all question, patient verbalizes understanding. At this time patient will be discharged home, advised to return with new or worsening symptoms. Educated on worrisome signs and symptoms and when to return. At this time I feel comfortable discharge home. <SATNAM Yan - Last Filed: 07/06/22 22:38> Time: 22:37 <SATNAM Yan - Last Filed: 07/06/22 22:38> Medications Administered Discontinued Medications Generic Name Dose Route Start Last Admin Trade Name Freq PRN Reason Stop Dose Admin Cyclobenzaprine HCl 10 mg 07/06/22 21:00 07/06/22 21:30 Cyclobenzaprine Hcl 10 Mg Tablet PO 07/06/22 21:01 10 mg ONCE ONE Administration Lidocaine 1 patch 07/06/22 21:00 07/06/22 21:31 Lidocaine 4 % Patch Adh..Patch TRANSDERMA 07/06/22 21:01 1 patch ONCE ONE Administration Protocol <SATNAM Reis - Last Filed: 07/12/22 12:33> Medications Administered Discontinued Medications Generic Name Dose Route Start Last Admin Trade Name Freq PRN Reason Stop Dose Admin Cyclobenzaprine HCl 10 mg 07/06/22 21:00 07/06/22 21:30 Cyclobenzaprine Hcl 10 Mg Tablet PO 07/06/22 21:01 10 mg ONCE ONE Administration Lidocaine 1 patch 07/06/22 21:00 07/06/22 21:31 Lidocaine 4 % Patch Adh..Patch TRANSDERMA 07/06/22 21:01 1 patch ONCE ONE Administration Protocol <SATNAM Yan - Last Filed: 07/06/22 22:38> Medical Decision Making Medical Decision Making [facility] Narrative: [birth year]50 76-year-old female presents status post trip and fall onto her left side complaining of left-sided hip, thigh, knee, left lower extremity pain and lumbar back pain. Denies any red flag symptoms of back pain. Physical examination significant for lumbar paraspinous tenderness to palpation. No midline tenderness. Full range of motion to bilateral hips, thighs, knees, lower extremities. 2+ dorsalis pedis, anterior tibialis, posterior tibialis pulses equal bilateral. Normal DTRs to bilateral lower extremities. Normal strength. Ambulating with steady gait normal coordination. No saddle paresthesias. Likely sprain/strains. Unlikely fractures/dislocations. Back pain likely strain as well, I do not suspect cauda equina, epidural abscess or cord compression. Images were done for him triage no need for further imaging at this time. No head strike therefore no need for head CT. <SATNAM Yan - Last Filed: 07/06/22 22:38> Differential Diagnosis Differential Diagnoses: The differential diagnosis associated with the presentation includes <SATNAM Yan Last Filed: 07/06/22 22:38> Likely sprain/strains. Unlikely fractures/dislocations. Back pain likely strain as well, I do not suspect cauda equina, epidural abscess or cord compression. <SATNAM Yan - Last Filed: 07/06/22 22:38> Admission/Observation Consideration of admission/observation: Escalation of care including admission/observation considered <SATNAM Yan - Last Filed: 07/06/22 22:38> Independent Interpretation I performed an independent interpretation of an: Plain X-Ray (Essentially unremarkable with no acute findings.) <SATNAM Yan - Last Filed: 07/06/22 22:38> Core Measures AMI core measures followed: Yes <SATNAM Yan - Last Filed: 07/06/22 22:38> Measure exclusions: not indicated <SATNAM Yan - Last Filed: 07/06/22 22:38> Critical Care Time Critical Care Time Critical Care Time: No <SATNAM Yan Last Filed: 07/06/22 22:38> Discharge Plan Discharge Clinical Impression: Knee pain, left, Left thigh pain, Lumbar paraspinal muscle spasm, Leg pain, left, Fall, Concussion without loss of consciousness <SATNAM Reis Last Filed: 07/12/22 12:33> Patient Disposition: Home, Self-Care <SATNAM Reis Last Filed: 07/12/22 12:33> Instructions: Knee Pain (ED), Post Concussion Syndrome (ED), Muscle Spasm (ED), Fall Prevention (ED), Leg Pain (ED), Warm Compress or Soak (ED) <SATNAM Reis - Last Filed: 07/12/22 12:33> Additional Instructions: Take your medications as prescribed. If you were prescribed antibiotics today, it is important that you take your medication to their entirety, do not skip any doses, do not finish them early. Follow-up with your primary care provider this week. Return to the emergency department with new or worsening symptoms. Such as fevers, chills, chest pain, shortness of breath, nausea, vomiting, dizziness, headache, vision changes, lethargy In case of emergency call 911 Cyclobenzaprine as a muscle relaxer that has been sent to her pharmacy, take this as prescribed, can make you drowsy do not take this while driving or operating machinery. Do not take with alcohol. Do not take tramadol and cyclobenzaprine together. XR/XR chest 1V IMPRESSION: Unremarkable examination. ? CT/CT head/brain wo IV con IMPRESSION: No acute intracranial pathology. FINDINGS: Lumbar spine: Some mild spondylitic endplate changes are seen. There is minimal grade 1 anterolisthesis of L4 upon L5. Vertebral body heights are maintained. There is some mild disc space narrowing at L4-L5. No acute fractures are seen. Vascular calcifications are present. Left femur: No fracture or bony destructive lesions are seen. The visualized left hip is unremarkable. Left knee: No significant bone, joint or soft tissue abnormality is seen. Vascular calcifications seen in the popliteal vein. No fractures or joint effusions. Left tib-fib: No significant bone, joint or soft tissue abnormality is seen. No fracture or dislocations are detected. <SATNAM Reis - Last Filed: 07/12/22 12:33> Prescriptions: New cyclobenzaprine 10 mg tablet 5 mg PO BEDTIME PRN (Reason: muscle spasm) Qty: 7 0RF lidocaine 5 % adhesive patch,medicated 1 patch topical DAILY PRN (Reason: pain) Qty: 15 0RF Rx Instructions: leave on most painful area for up to 12 hrs No Action Myrbetriq 25 mg tablet extended release 24 hr 25 mg PO DAILY 90 Days Qty: 90 3RF estradiol 0.01 % (0.1 mg/gram) cream See Rx Instructions .Route DAILY Qty: 42.5 3RF Rx Instructions: pea-sized to urethra daily; tramadol 50 mg tablet 1 tab PO Q6H PRN (Reason: pain) pantoprazole 40 mg tablet,delayed release (DR/EC) 1 tab PO DAILY simvastatin 20 mg tablet 1 tab PO BEDTIME hydrochlorothiazide 25 mg tablet 1 tab PO DAILY ondansetron 4 mg tablet,disintegrating 1 tab PO Q6H PRN (Reason: nausea/vomiting) raloxifene 60 mg Tablet 60 mg PO DAILY Qty: 90 4RF metronidazole 500 mg tablet 500 mg PO TID 14 Days Qty: 42 0RF levofloxacin 250 mg tablet 250 mg PO Q24H Qty: 14 0RF amlodipine 5 mg tablet 5 mg PO DAILY <SATNAM Reis - Last Filed: 07/12/22 12:33> Referrals: Name,MD Oscar [Primary Care Provider] - 2 days <SATNAM Reis - Last Filed: 07/12/22 12:33> Interventions: ED Discharge Assessment Last Done: 07/06/22 22:48 <SATNAM Reis - Last Filed: 07/12/22 12:33> Discharge Date/Time: 07/06/22 22:49 <SATNAM Reis - Last Filed: 07/12/22 12:33>
[2022-07-06 19:23] VITALS: BP 149/62; PULSE 70; RESP 18; O2SAT 99
[2022-07-06] MEDS: Cyclobenzaprine HCl 10 MG TABLET PO (21:30)
[2022-07-06] MEDS: Lidocaine 4 % Patch ADH..PATCH 1 PATCH TRANSDERMA (21:31)
[2022-07-06 22:14] VITALS: BP 150/64; PULSE 70; RESP 16; TEMP 36.9; O2SAT 98
== END 2022-07-06 22:49 | disposition home or self-care (01) ==
PROVIDERS: Emergency Provider Emergency Medicine; PCP Internal Medicine Geriatric Medicine
DX: S06.0X0A Concussion without loss of consciousness, initial encounter (principal); W01.0XXA Fall on same level from slipping, tripping and stumbling without subsequent striking against object, initial encounter; M25.562 Pain in left knee; M79.605 Pain in left leg; M79.652 Pain in left thigh; M62.830 Muscle spasm of back; E78.00 Pure hypercholesterolemia, unspecified; I10 Essential (primary) hypertension; Y93.89 Activity, other specified; Y92.238 Other place in hospital as the place of occurrence of the external cause; Y99.9 Unspecified external cause status; Z79.02 Long term (current) use of antithrombotics/antiplatelets; Z79.899 Other long term (current) drug therapy
CPT/HCPCS: 70450; 71045; 72100; 73552; 73564; 73590; 99283; 99284

== ENCOUNTER 2022-08-16 14:30 | Outpatient (REF) | payer OTHER, SELFPAY ==
--- NOTE | ~2022-08-16 | MR_ITS ---
EXAMINATION: MR ANKLE WITHOUT CONTRAST, LEFT CLINICAL INFORMATION: Left ankle pain and swelling COMPARISON: None. TECHNIQUE: MRI without contrast is performed on the left ankle on a 1.5 Jil scanner. FINDINGS: The anterior and posterior talofibular ligaments, calcaneofibular and deltoid ligaments, and ankle syndesmosis are intact. No ankle joint effusion. There is cartilage thinning and surface irregularity along the medial talar dome with foci of full-thickness loss. No marrow edema. The Achilles tendon, posterior tibialis tendon, peroneal tendons, flexor and extensor tendons are intact. Enthesopathy at the Achilles tendon insertion. The sinus tarsi is normal. Mild midfoot osteoarthritis with small dorsal osteophytes. The Lisfranc ligament is intact. The plantar fascia is intact. MR/MR ankle LT wo con IMPRESSION: 1. Mild tibiotalar osteoarthritis with foci of full-thickness cartilage loss along the medial talar dome. No joint effusion. 2. Mild midfoot osteoarthritis. 3. No acute tendon or ligament injury.
--- NOTE | ~2022-08-16 | MR_ITS ---
EXAMINATION: MR KNEE WITHOUT CONTRAST, LEFT CLINICAL INFORMATION: Left knee pain and swelling COMPARISON: Radiographs 07/06/2022 TECHNIQUE: MRI of the knee without contrast was performed using routine sequences on a high-field scanner. FINDINGS: MENISCI: Medial Meniscus: Minimal undersurface tearing at the junction of the posterior horn and body. Lateral Meniscus: Intact LIGAMENTS: Cruciate: Intact Collateral: Intact EXTENSOR MECHANISM: Intact ARTICULAR CARTILAGE/BONE: Patellofemoral Compartment: Normal Medial Compartment: Mild cartilage thinning and surface irregularity lung weightbearing aspect. Lateral Compartment: Focal partial-thickness cartilage loss of the tibia posteriorly. JOINT FLUID AND BURSAE: No joint effusion. MR/MR knee LT wo con IMPRESSION: 1. Minimal undersurface tearing of the medial meniscus at the junction of the posterior horn and body. 2. Mild medial/lateral compartment osteoarthritis.
== END 2022-08-16 14:31 | disposition home or self-care (01) ==
LOC: HO.MRI 14:30
PROVIDERS: PCP Internal Medicine Geriatric Medicine; Visit Provider Registered Nurse
DX: S99.912D Unspecified injury of left ankle, subsequent encounter (principal); S89.92XD Unspecified injury of left lower leg, subsequent encounter
CPT/HCPCS: 73721

== ENCOUNTER 2022-09-24 12:03 | Outpatient (REF) | payer OTHER, SELFPAY | END 2022-09-24 12:04 | disposition home or self-care (01) | LOC: HO.SH 12:03 | PROVIDERS: Visit Provider Internal Medicine Geriatric Medicine | DX: H90.3 Sensorineural hearing loss, bilateral (principal) | CPT/HCPCS: 92557; 92567 ==

== ENCOUNTER → 2022-09-28 13:12 | Outpatient (BNVA) | payer OTHER, SELFPAY | PROVIDERS: PCP Internal Medicine Geriatric Medicine; Visit Provider Surgery | DX: N60.91 Unspecified benign mammary dysplasia of right breast (principal); N60.92 Unspecified benign mammary dysplasia of left breast | CPT/HCPCS: 99212 ==

== ENCOUNTER 2022-10-05 10:13 | Outpatient (REF) | payer OTHER, SELFPAY ==
--- NOTE | ~2022-10-05 | XR_ITS ---
EXAMINATION: XR KNEE AP STANDING, BILATERAL CLINICAL INFORMATION: Knee pain. COMPARISON: 07/06/2022 TECHNIQUE: Limited left knee sunrise view. AP bilateral standing view of the knees was obtained. FINDINGS: AP standing views of both knees do not demonstrate any significant joint space narrowing. There is minimal spurring seen involving the medial joint space compartments bilaterally. The sunrise view is limited with unusual angulation. No definite articular surface irregularity is identified. There is spurring about the site of insertion of the quadriceps tendon. XR/XR knee standing BI IMPRESSION: Limited views as described without significant bony abnormality appreciated.
--- NOTE | ~2022-10-05 | XR_ITS ---
EXAMINATION: XR KNEE AP STANDING, BILATERAL CLINICAL INFORMATION: Knee pain. COMPARISON: 07/06/2022 TECHNIQUE: Limited left knee sunrise view. AP bilateral standing view of the knees was obtained. FINDINGS: AP standing views of both knees do not demonstrate any significant joint space narrowing. There is minimal spurring seen involving the medial joint space compartments bilaterally. The sunrise view is limited with unusual angulation. No definite articular surface irregularity is identified. There is spurring about the site of insertion of the quadriceps tendon. XR/XR knee LT 1V IMPRESSION: Limited views as described without significant bony abnormality appreciated.
== END 2022-10-05 10:14 | disposition home or self-care (01) ==
LOC: HO.HOSX 10:13
PROVIDERS: Visit Provider Physician Assistant
DX: M17.12 Unilateral primary osteoarthritis, left knee (principal)
CPT/HCPCS: 20610; 73560; 73565; 99202; J1040

== ENCOUNTER 2022-12-10 10:05 | Outpatient (REF) | payer OTHER, SELFPAY ==
--- NOTE | ~2022-12-10 | MM_ITS ---
EXAMINATION: MM SCREENING DIGITAL BREAST TOMOSYNTHESIS, BILATERAL CLINICAL INFORMATION: Screening. Asymptomatic. The patient has a history of bilateral LCIS and bilateral excisional biopsies. The lifetime risk of breast cancer based on the Tyrer-Cuzick Model is 3%. COMPARISON: Mammography: This study is compared with prior exams dating back to 2019. TECHNIQUE: Digital breast tomosynthesis is performed in both the craniocaudal and mediolateral oblique views along with computer-aided detection (CAD). Synthesized 2D images are generated from the tomosynthesis. FINDINGS: The breasts are heterogeneously dense, which may obscure small masses (ACR BI-RADS breast composition Category c). There are no significant masses, abnormal calcifications, or other abnormalities. Few, coarse, unchanged benign calcifications are present in each breast. There are postsurgical changes in the superior aspect of the left breast. MM/MM tomosynthesis screening BI IMPRESSION: No mammographic evidence of malignancy. ASSESSMENT: BI-RADS BI-RADS 2 - Benign Findings RECOMMENDATION: Routine annual mammography screening. 1 year F/U This examination should not preclude the clinical evaluation of a suspicious palpable abnormality. This patient's information was entered into a reminder system with a target due date for their next mammogram.
== END 2022-12-10 10:06 | disposition home or self-care (01) ==
LOC: HO.MAMMO 10:05
PROVIDERS: PCP Internal Medicine Geriatric Medicine; Visit Provider Surgery
DX: Z12.31 Encounter for screening mammogram for malignant neoplasm of breast (principal)
CPT/HCPCS: 77063; 77067

== ENCOUNTER → 2022-12-10 10:15 | Outpatient (BNV) | payer OTHER, SELFPAY | PROVIDERS: PCP Internal Medicine Geriatric Medicine; Visit Provider Radiology Diagnostic Radiology | DX: Z12.31 Encounter for screening mammogram for malignant neoplasm of breast (principal) | CPT/HCPCS: 77063; 77067 ==

== ENCOUNTER 2023-01-19 15:09 | Outpatient (REF) | payer OTHER, SELFPAY ==
[2023-01-19 22:28] LABS: Vitamin B12 342 pg/mL (200-900)
== END 2023-01-19 15:10 | disposition home or self-care (01) ==
LOC: HO.LAB 15:09
PROVIDERS: PCP Internal Medicine Geriatric Medicine; Visit Provider Psychiatry & Neurology Neurology
DX: G31.84 Mild cognitive impairment of uncertain or unknown etiology (principal)
CPT/HCPCS: 36415; 82607

== ENCOUNTER 2023-03-01 14:12 | Emergency (ER) | payer OTHER, SELFPAY ==
[2023-03-01 14:19] VITALS: BP 153/62; PULSE 80; RESP 18; TEMP 36.7; O2SAT 99; BMI 27.8
--- NOTE | 2023-03-01 14:19 | ED.GENADULT ---
HPI - General Adult General Chief complaint: Ear Problems Stated complaint: Back of earring stuck in ear Source: patient Mode of arrival: ambulatory Limitations: no limitations History of Present Illness HPI narrative: 77 y o female presenting for earring stuck in the L ear since this morning, states she went to bed with them in one night and tried to pull it out but the back got stuck in my ear . Denies hearing changes, fever, chest pain, shortness of breath, abdominal pain. Related Data Home Medications Medication Instructions Recorded Confirmed hydrochlorothiazide 25 mg tablet 1 tab PO DAILY 07/03/20 01/07/23 ondansetron 4 mg disintegrating 1 tab PO Q6H PRN nausea/vomiting 07/03/20 01/07/23 tablet pantoprazole 40 mg tablet,delayed 1 tab PO DAILY 07/03/20 01/07/23 release simvastatin 20 mg tablet 1 tab PO BEDTIME 07/03/20 01/07/23 amlodipine 5 mg tablet 5 mg PO DAILY 07/10/21 01/07/23 Previous Rx's Medication Instructions Recorded levofloxacin 250 mg tablet 250 mg PO Q24H #14 tabs 05/19/20 estradiol 0.01% (0.1 mg/gram) See Rx Instructions .Route DAILY 03/22/22 vaginal cream #42.5 grams cyclobenzaprine 10 mg tablet 5 mg (1/2 x 10 mg) PO BEDTIME PRN 07/06/22 muscle spasm #7 tabs raloxifene 60 mg tablet 60 mg PO DAILY #90 tabs 07/09/22 mirabegron 25 mg tablet,extended 25 mg PO DAILY 90 days #90 tabs 10/19/22 release 24 hr (Myrbetriq) Allergies Allergy/AdvReac Type Severity Reaction Status Date / Time aspirin [ASPIRIN] Allergy Unknown hives, rash Verified 01/07/23 12:57 Penicillins [PENICILLINS] Allergy Unknown hives Verified 01/07/23 12:57 Review of Systems Review of Systems: Constitutional : No Weight loss, No Fever, No Chills, No Fatigue, No Malaise ENT/Mouth : No sore throat, No Rhinorrhea, +Ear pain Eyes: No Eye Pain, No Swelling, No Redness Cardiovascular : No Chest Pain, No SOB, No Dyspnea on Exertion, No Orthopnea, No Edema, No Palpitations Respiratory : No Cough, No Sputum, No Wheezing Gastrointestinal : No Nausea, No Vomiting, No Diarrhea, No Constipation, No abdominal Pain, No Hematochezia, No Melena Genitourinary : No Dysuria, No Urinary Frequency, No Hematuria, Musculoskeletal : No joint pain, No Myalgias, No Joint Swelling Skin : No Skin Lesions, No rash Neuro : No Weakness, No Numbness, No Dizziness, No Headache Psych : No Anxiety/Panic, No Depression All other systems reviewed and are negative [facility] Past Medical History Medical History Asthma GERD (gastroesophageal reflux disease) Hypercholesterolemia Hypertension Surgical History History of bilateral carpal tunnel release History of breast lump/mass excision (2002) History of cervical spinal surgery History of colonoscopy History of laparoscopic cholecystectomy (08/06/08) History of local excision of skin lesion (03/22/19) History of right breast biopsy (09/26/13) History of tonsillectomy History of tubal ligation Hx of endoscopy Hx of right breast biopsy (02/2016) Family History Family History Father Family history of due to heart problem at 50 years of age or younger History of cardiovascular disorder Mother Hx of cancer of lung Social History Social History Household Members: Spouse Housing: House Are you a primary patient care to a significant other at home: No Do you presently have visiting nurse or other home services: No Alcohol intake: current Alcohol intake frequency: does not drink Patient Tobacco Use Status: Current everyday Tobacco user Cigarettes Per Day: 7 service: No Current occupational status: unemployed Physical Exam ED Vital Signs: Vital Signs - 24 hr 03/01/23 14:19 Temperature 98.1 F Pulse Rate 80 Respiratory Rate 18 Blood Pressure 153/62 H Pulse Oximetry 99 Oxygen Delivery Method Room Air BMI result Body Mass Index 27.8 VSS Appearance: Alert.? Oriented X3.? No acute distress.? Head: Normocephalic, atraumatic, no step-offs or deformities Eyes: Pupils equal, round and reactive to light.? ENT: Pharynx normal.??R External ear normal, L external ear normal except with +foreign body visualized located at the surface of the L posterior earlobe at the site of a piercing. No surrounding erythema, drainage or bleeding. EAC's normal. No pain with manipulation of external ears bilaterally. No mastoid tenderness. Neck: Normal inspection.? Neck supple.? CVS: Normal heart rate and rhythm.? Pulses normal.? Respiratory: No respiratory distress.? Breath sounds normal.? Skin: Skin warm and dry.? Normal skin color.? Normal skin turgor.? Extremities: No lower extremity edema.? No calf ttp. 5/5 strength to bilateral upper and lower extremities Neuro: Oriented X 3.? No motor deficit.? No sensory deficit. CN 2-12 intact Medical Decision Making Medical Decision Making [facility] Narrative: 1425 77 y o female presenting for evaluation of earring stuck in L earlobe PE significant for L external ear normal except with +foreign body visualized located at the surface of the L posterior earlobe at the site of a piercing. No surrounding erythema, drainage or bleeding. Simple foreign body visualized and removed easily. No surrounding erythema or drainage, no indication for antibiotics. No cellulitis, no necrosis, no hearing changes. Differential Diagnosis Differential Diagnoses: The differential diagnosis associated with the presentation includes Simple foreign body visualized and removed easily. No surrounding erythema or drainage, no indication for antibiotics. No cellulitis, no necrosis, no hearing changes. Admission/Observation Consideration of admission/observation: Escalation of care including admission/observation considered No indication Discharge Plan Discharge Clinical Impression: Retained foreign body Patient Disposition: Home, Self-Care Additional Instructions: Take your medications as prescribed. If you were prescribed antibiotics today, it is important that you take your medication to their entirety, do not skip any doses, do not finish them early. Follow-up with your primary care provider this week. Return to the emergency department with new or worsening symptoms. In case of emergency call 911 Prescriptions: No Action estradiol 0.01 % (0.1 mg/gram) cream See Rx Instructions .Route DAILY Qty: 42.5 3RF Rx Instructions: pea-sized to urethra daily; Myrbetriq 25 mg tablet extended release 24 hr 25 mg PO DAILY 90 Days Qty: 90 3RF pantoprazole 40 mg tablet,delayed release (DR/EC) 1 tab PO DAILY simvastatin 20 mg tablet 1 tab PO BEDTIME hydrochlorothiazide 25 mg tablet 1 tab PO DAILY ondansetron 4 mg tablet,disintegrating 1 tab PO Q6H PRN (Reason: nausea/vomiting) raloxifene 60 mg Tablet 60 mg PO DAILY Qty: 90 4RF cyclobenzaprine 10 mg tablet 5 mg PO BEDTIME PRN (Reason: muscle spasm) Qty: 7 0RF levofloxacin 250 mg tablet 250 mg PO Q24H Qty: 14 0RF amlodipine 5 mg tablet 5 mg PO DAILY Referrals: Name,MD Oscar [Primary Care Provider] - 2 days Interventions: ED Discharge Assessment Last Done: 03/01/23 14:24
== END 2023-03-01 14:28 | disposition home or self-care (01) ==
PROVIDERS: Emergency Provider Emergency Medicine; PCP Internal Medicine Geriatric Medicine
DX: T16.2XXA Foreign body in left ear, initial encounter (principal); Y93.9 Activity, unspecified; Y92.9 Unspecified place or not applicable; Y99.9 Unspecified external cause status; Z79.899 Other long term (current) drug therapy
CPT/HCPCS: 69200; 99282; 99284

== ENCOUNTER 2023-03-15 09:10 | Outpatient (REF) | payer OTHER, SELFPAY ==
[2023-03-15 12:39] LABS: Alanine Aminotransferase 9 U/L (0-31); Albumin Level 4.3 g/dL (3.5-5.0); Alkaline Phosphatase 47 U/L (39-117); Anion Gap 14 (12-20); Aspartate Amino Transferase 15 U/L (5-31); Bilirubin Total 0.4 mg/dL (0.0-1.0); Blood Urea Nitrogen 12 mg/dL (9-16); Calcium 9.3 mg/dL (8.4-10.2); Carbon Dioxide 27 mmol/L (22-29); Chloride 108 mmol/L (96-108); Cholesterol 215 mg/dL (<200); Estimated Glomerular Filt Rate > 60; Glucose Random 118 mg/dL (60-115); HDL Cholesterol 41 mg/dL (>40); LDL Cholesterol Calculated 134 mg/dL (<100); Potassium 3.9 mmol/L (3.3-5.1); Sodium 145 mmol/L (135-145); Total Protein 7.2 g/dL (6.5-8.0); Triglycerides 201 mg/dL (<150)
== END 2023-03-15 09:11 | disposition home or self-care (01) ==
LOC: HO.HHCL 09:10
PROVIDERS: Visit Provider Internal Medicine Geriatric Medicine
DX: E11.69 Type 2 diabetes mellitus with other specified complication (principal); R53.81 Other malaise; R53.83 Other fatigue; R09.89 Other specified symptoms and signs involving the circulatory and respiratory systems; R52 Pain, unspecified; T50.Z95A Adverse effect of other vaccines and biological substances, initial encounter; J45.909 Unspecified asthma, uncomplicated
CPT/HCPCS: 36415; 80053; 80061; 82043; 82570

== ENCOUNTER → 2023-04-04 15:36 | Outpatient (REF) | payer OTHER, SELFPAY | LOC: HO.SL 15:36 | PROVIDERS: PCP Internal Medicine Geriatric Medicine; Visit Provider Psychiatry & Neurology Neurology | DX: G47.33 Obstructive sleep apnea (adult) (pediatric) (principal) | CPT/HCPCS: 95806 ==

== ENCOUNTER → 2023-04-04 19:00 | Outpatient (BNV) | payer OTHER, SELFPAY | PROVIDERS: PCP Internal Medicine Geriatric Medicine; Visit Provider Internal Medicine | DX: R06.83 Snoring (principal) | CPT/HCPCS: 95806 ==

== ENCOUNTER 2023-05-12 13:49 | Outpatient (AMB) | payer OTHER, SELFPAY ==
--- NOTE | 2023-05-12 13:53 | MHC.OFFVIS ---
Intake Vital Signs 05/12/23 14:03 Height 5 ft 1 in Weight 150 lb BMI 28.3 BP 177/80 H Blood Pressure Location Lt brachial Position Sitting Pulse 79 Intake Visit Reasons: 6m breast exam Intake Note: Patient is seen in office for 6 month follow up visit, breast exam. Pt c/o: at times pulsating pain, denies any other concerns Skoog Operator Required: No Accompanied by: Self / Same As Patient Allergies aspirin [ASPIRIN] Allergy (Unknown, Verified 05/12/23 14:03) hives, rash Penicillins [PENICILLINS] Allergy (Unknown, Verified 05/12/23 14:03) hives HPI HPI Comments History of Present Illness Details Khadra Galan is a 77-year-old female patient returning for a?follow-up breast examination.? She has a prior history of atypical lobular hyperplasia left breast excised 02/07/2003 (Dr. Rahman), left breast atypical lobular hyperplasia excised 05/25/2011 (Dr. 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 Rahman), and focal atypical lobular hyperplasia right breast excised 02/24/2016 (Dr. Son).? Her last mammogram of 09/22/2021 revealed no significant changes from her previous mammogram (BI-RADS 2).? Her last MRI of?11/05/2020 revealed? a symmetrically enlarged left axillary lymph nodes.? Diagnostic ultrasound evaluation was recommended.? No MR specific evidence of malignancy in either breast was noted.? She subsequently underwent ultrasound? of the left breast on 11/14/2020 revealed? 4 lymph nodes present within the left axilla, some of which have thickened cortex up to 6 mm in diameter.? The fatty clefts appear unremarkable without infiltration.? No lobulation of the cortex is identified.? As the patient recently underwent her COVID vaccine injection in the left arm this was felt to possibly be related to reactive lymph nodes from the injection.? Follow-up breast ultrasound of 02/17/2021 revealed the left axillary nodes have decreased from the prior examination. No axillary adenopathy is identified (BI-RADS 2). Her most recent mammogram of 12/10/2022 revealed no mammographic evidence of malignancy with post therapy changes . (BI-RADS 2). She denies any new breast symptoms on either side. COUNT INCLUDES THE [facility] Medical History GERD (gastroesophageal reflux disease) Asthma Hypercholesterolemia Hypertension Surgical History History of local excision of skin lesion (03/22/19) Hx of right breast biopsy (02/2016) History of right breast biopsy (09/26/13) History of breast lump/mass excision (2002) History of tonsillectomy History of bilateral carpal tunnel release History of cervical spinal surgery History of tubal ligation History of laparoscopic cholecystectomy (08/06/08) Hx of endoscopy History of colonoscopy Family History Father Family history of due to heart problem at 50 years of age or younger History of cardiovascular disorder Mother Hx of cancer of lung Social History Household Members: Spouse Housing: House Are you a primary child caregiver to a significant other at home: No Do you presently have visiting nurse or other home services: No Alcohol intake: current Alcohol intake frequency: does not drink Patient Tobacco Use Status: Current everyday Tobacco user Cigarettes Per Day: 7 service: No Current occupational status: unemployed Review of Systems Const All systems reviewed & are unremarkable except as noted in HPI and below Card Denies dyspnea Resp Denies dyspnea and Reports wheezing GI Denies abdominal pain, Denies constipation and Denies diarrhea Denies nipple discharge Skin/Breast Denies breast swelling, Denies breast skin changes, Denies breast pain, Denies breast mass, Denies change in breast shape and Denies nipple discharge Neuro Reports no additional complaints Aller/Immun Reports wheezing Physical Exam Vital Signs: Last Vital Signs Pulse 79 05/12/23 14:03 BP 177/80 H 05/12/23 14:03 BMI result Body Mass Index 28.3 Const General: cooperative, healthy appearing, comfortable, no acute distress, well developed, alert and awake HEENT Head: Yes normocephalic and Yes atraumatic Neck Neck: Yes normal visual inspection and Yes no JVD Chest Other: Left breast: No skin change, no nipple retraction, no nipple discharge, no palpable mass, no enlarged or tender lymph nodes are palpable. There is tenderness in the upper outer quadrant with no palpable mass appreciated. Right breast: No skin change, no nipple retraction, no nipple discharge, palpable mass, no enlarged lymph node. Tenderness in the lower inner quadrant with no palpable mass. Resp Effort & Inspection: normal respiratory effort, no stridor and not tachypneic GI Inspection: Yes normal to inspection Skin General skin exam: no rashes or lesions noted Extrem General: Yes no clubbing, cyanosis or edema Assessment & Plan Assessment & Plan (1) Atypical hyperplasia of breast, bilateral: Code(s): N60.91 - Unspecified benign mammary dysplasia of right breast; N60.92 - Unspecified benign mammary dysplasia of left breast Plan: 77-year-old female with a history of ALH of bilateral breast returning for a follow-up breast examination. Examination today revealed no suspicious findings in either breast. Her most recent mammogram dated 12/10/2022 revealed no mammographic evidence of malignancy. (BI-RADS 2). She should follow up in 6 months for routine breast examination. Continued annual mammography and MRIs are recommended. She is now due for an annual mammogram. Coding Level of Care Code Est Pt Level 3 (80068) Diagnoses Atypical hyperplasia of breast, bilateral N60.91; N60.92
[2023-05-12 14:03] VITALS: BP 177/80; PULSE 79; BMI 28.3
== END 2023-05-12 14:15 | disposition home or self-care (01) ==
PROVIDERS: PCP Internal Medicine Geriatric Medicine; Visit Provider Surgery
DX: N60.91 Unspecified benign mammary dysplasia of right breast (principal); N60.92 Unspecified benign mammary dysplasia of left breast
CPT/HCPCS: 99213

== ENCOUNTER → 2023-05-12 13:49 | Outpatient (BNVA) | payer OTHER, SELFPAY | PROVIDERS: PCP Internal Medicine Geriatric Medicine; Visit Provider Surgery | DX: N60.91 Unspecified benign mammary dysplasia of right breast (principal); N60.92 Unspecified benign mammary dysplasia of left breast | CPT/HCPCS: 99212 ==

== ENCOUNTER 2023-07-05 15:38 | Outpatient (REF) | payer OTHER, SELFPAY ==
--- NOTE | ~2023-07-05 | MR_ITS ---
EXAMINATION: MR BREAST WITHOUT AND WITH CONTRAST, BILATERAL CLINICAL INFORMATION: High-risk screening. Lobular neoplasia; bilateral LCIS. Extremely dense breast parenchyma. COMPARISON: Breast MRI 03/24/2022, and selected images from priors. Mammography from 12/10/2022. TECHNIQUE: Imaging was performed with a dedicated breast coil. Prior to the administration of contrast, bilateral axial T1 and bilateral axial T2 weighted sequences were obtained. After the uneventful administration of?7 mL of Gadavist, dynamic contrast-enhanced VIBRANT series through the breasts in the axial plane were performed. Subtracted images were performed and reviewed. A delayed sagittal sequence through both breasts was acquired. Additionally, CAD post-processing, including maximum intensity projections, 3-D reconstructions and kinetic analysis, were performed an independent workstation and reviewed by the interpreting radiologist is a portion of this exam. FINDINGS: The breasts are comprised almost entirely of extremely dense fibroglandular parenchyma. The tissue undergoes moderate background enhancement. LEFT BREAST: Architectural distortion and susceptibility artifact in the left breast 11 o'clock position from prior excisional biopsy for LCIS. No abnormal enhancement. A tiny focus in the left upper inner quadrant adjacent a vessel (series 100 image 68/106) is unchanged compared with priors. No suspicious left breast mass or dominant nonmass enhancement. No appreciable change from priors. RIGHT BREAST: Subtle architectural distortion in the axillary tail following prior surgical excision for borderline LCIS. No abnormal associated enhancement. No suspicious mass or dominant nonmass enhancement. There is no suspicious internal mammary chain or axillary adenopathy. Limited views of the chest and abdomen are unremarkable. MR/MR breast BI wo/w con IMPRESSION: No MR specific evidence of malignancy. Postsurgical changes in both breasts. ASSESSMENT: LEFT BREAST: BI-RADS 2, benign findings. RIGHT BREAST: BI-RADS 2, benign findings. RECOMMENDATIONS: Yearly bilateral breast MRI per published guidelines in high-risk patients.
[2023-07-05] MEDS: gadobutroL 7.5 ML VIAL 7 ML IVPUSH (16:45)
== END 2023-07-05 15:39 | disposition home or self-care (01) ==
LOC: HO.MRI 15:38
PROVIDERS: PCP Internal Medicine Geriatric Medicine; Visit Provider Surgery
DX: N60.91 Unspecified benign mammary dysplasia of right breast (principal); N60.92 Unspecified benign mammary dysplasia of left breast
CPT/HCPCS: 77049; A9585

== ENCOUNTER 2023-11-15 14:43 | Outpatient (AMB) | payer OTHER, SELFPAY ==
[2023-11-15 14:53] VITALS: BP 149/65; PULSE 74; BMI 29.1
--- NOTE | 2023-11-15 14:53 | A.OFFVIS_ITS ---
Vital Signs 11/15/23 14:53 Height 5 ft 1 in Weight 154 lb BMI 29.1 BP 149/65 H Blood Pressure Location Rt brachial Position Sitting Pulse 74 Intake Visit Reasons: 6m breast exam Intake Note: This patient presents for a six month follow-up breast exam. Patient c/o; reports no breast complaints at this time. Screen Printing Paster Required: No Accompanied by: Self / Same As Patient Allergies aspirin [ASPIRIN] Allergy (Unknown, Verified 11/15/23 14:54) hives, rash Penicillins [PENICILLINS] Allergy (Unknown, Verified 11/15/23 14:54) hives HPI Comments Details: Khadra Galan is a 78-year-old female patient returning for a?follow-up breast examination.? She has a prior history of atypical lobular hyperplasia left breast excised 02/07/2003 (Dr. Rahman), left breast atypical lobular hyperplasia excised 05/25/2011 (Dr. 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 Rahman), and focal atypical lobular hyperplasia right breast excised 02/24/2016 (Dr. Son).? Her last mammogram of 09/22/2021 revealed no significant changes from her previous mammogram (BI-RADS 2).? Her last MRI of?11/05/2020 revealed? a symmetrically enlarged left axillary lymph nodes.? Diagnostic ultrasound evaluation was recommended.? No MR specific evidence of malignancy in either breast was noted.? She subsequently underwent ultrasound? of the left breast on 11/14/2020 revealed? 4 lymph nodes present within the left axilla, some of which have thickened cortex up to 6 mm in diameter.? The fatty clefts appear unremarkable without infiltration.? No lobulation of the cortex is identified.? As the patient recently underwent her COVID vaccine injection in the left arm this was felt to possibly be related to reactive lymph nodes from the injection.? Follow-up breast ultrasound of 02/17/2021 revealed the left axillary nodes have decreased from the prior examination. No axillary adenopathy was identified (BI-RADS 2). Her most recent mammogram of 12/10/2022 revealed no mammographic evidence of malignancy with post therapy changes (BI-RADS 2). She is scheduled for follow-up mammogram on 01/06/2024. She denies any new breast symptoms on either side. [facility] Medical History GERD (gastroesophageal reflux disease) Asthma Hypercholesterolemia Hypertension Surgical History History of local excision of skin lesion (03/22/19) Hx of right breast biopsy (02/2016) History of right breast biopsy (09/26/13) History of breast lump/mass excision (2002) History of tonsillectomy History of bilateral carpal tunnel release History of cervical spinal surgery History of tubal ligation History of laparoscopic cholecystectomy (08/06/08) Hx of endoscopy History of colonoscopy Family History Father Family history of due to heart problem at 50 years of age or younger History of cardiovascular disorder Mother Hx of cancer of lung Social History Household Members: Spouse Housing: House Are you a primary personal care worker to a significant other at home: No Do you presently have visiting nurse or other home services: No Alcohol intake: current Alcohol intake frequency: does not drink Patient Tobacco Use Status: Current everyday Tobacco user Cigarettes Per Day: 7 service: No Current occupational status: unemployed Review of Systems Const All systems reviewed & are unremarkable except as noted in HPI and below Card Denies dyspnea Resp Denies dyspnea and Reports wheezing GI Denies abdominal pain, Denies constipation and Denies diarrhea Denies nipple discharge Skin/Breast Denies breast swelling, Denies breast skin changes, Denies breast pain, Denies breast mass, Denies change in breast shape and Denies nipple discharge Neuro Reports no additional complaints Aller/Immun Reports wheezing Physical Exam Vital Signs: Last Vital Signs Pulse 74 11/15/23 14:53 BP 149/65 H 11/15/23 14:53 BMI result Body Mass Index 29.1 Const General: no acute distress Nutritional Appearance: well nourished Orientation/consciousness: patient oriented x3 Neck Neck: Yes normal visual inspection and Yes no JVD Chest Other: Left breast: No skin change, no nipple retraction, no nipple discharge, no palpable mass, no enlarged or tender lymph nodes are palpable. There is tenderness in the upper outer quadrant with no palpable mass appreciated. Right breast: No skin change, no nipple retraction, no nipple discharge, palpable mass, no enlarged lymph node. Tenderness in the lower inner quadrant with no palpable mass. Resp Effort & Inspection: normal respiratory effort, no stridor and not tachypneic GI Inspection: Yes normal to inspection Skin General skin exam: no rashes or lesions noted Neuro General: patient oriented x3 Extrem General: Yes no clubbing, cyanosis or edema Assessment & Plan Assessment & Plan (1) Atypical hyperplasia of breast, bilateral: Code(s): N60.91 - Unspecified benign mammary dysplasia of right breast; N60.92 - Unspecified benign mammary dysplasia of left breast Category: Medical Plan: 78-year-old female with a history of ADH,ALH bordering on LCIS involving bilateral breast returning for a follow-up breast examination. Examination today revealed no suspicious findings in either breast. Her most recent mammogram dated 12/10/2022 revealed no mammographic evidence of malignancy (BI- RADS 2). She is scheduled for an annual mammogram on 01/06/2024. She should follow up in 6 months for routine breast examination. Coding Level of Care Code Est Pt Level 3 (18663) Diagnoses Atypical hyperplasia of breast, bilateral N60.91; N60.92
== END 2023-11-15 15:04 | disposition home or self-care (01) ==
PROVIDERS: PCP Internal Medicine Geriatric Medicine; Visit Provider Surgery
DX: N60.91 Unspecified benign mammary dysplasia of right breast (principal); N60.92 Unspecified benign mammary dysplasia of left breast
CPT/HCPCS: 99213

== ENCOUNTER → 2023-11-15 14:43 | Outpatient (BNVA) | payer OTHER, SELFPAY | PROVIDERS: PCP Internal Medicine Geriatric Medicine; Visit Provider Surgery | DX: N60.92 Unspecified benign mammary dysplasia of left breast (principal); N60.91 Unspecified benign mammary dysplasia of right breast | CPT/HCPCS: 99212 ==

== ENCOUNTER 2024-01-06 11:34 | Outpatient (REF) | payer OTHER, SELFPAY ==
--- NOTE | ~2024-01-06 | MM_ITS ---
EXAMINATION: MM SCREENING DIGITAL BREAST TOMOSYNTHESIS, BILATERAL CLINICAL INFORMATION: Screening. Asymptomatic. The patient is status post left lumpectomy and status post right breast surgery showing LCIS. COMPARISON: Mammography: This study is compared with prior exams dating back to 2020. TECHNIQUE: Digital breast tomosynthesis is performed in both the craniocaudal and mediolateral oblique views along with computer-aided detection (CAD). Synthesized 2D images are generated from the tomosynthesis. FINDINGS: The breasts are heterogeneously dense, which may obscure small masses (ACR BI-RADS breast composition Category c). There are no significant masses, abnormal calcifications, or other abnormalities. Postsurgical changes are present in the superior aspect of the left breast. There are bilateral benign calcifications present. MM/MM tomosynthesis screening BI IMPRESSION: No mammographic evidence of malignancy. ASSESSMENT: BI-RADS BI-RADS 2 - Benign Findings RECOMMENDATION: Routine annual mammography screening. 1 year F/U This examination should not preclude the clinical evaluation of a suspicious palpable abnormality. This patient's information was entered into a reminder system with a target due date for their next mammogram. Electronically signed by: Lita Lewis MD 02/06/2024 11:37 PM EDT
== END 2024-01-06 11:35 | disposition home or self-care (01) ==
LOC: HO.MAMMO 11:34
PROVIDERS: Visit Provider Internal Medicine Geriatric Medicine
DX: Z12.31 Encounter for screening mammogram for malignant neoplasm of breast (principal)
CPT/HCPCS: 77063; 77067

== ENCOUNTER → 2024-01-06 12:15 | Outpatient (BNV) | payer OTHER, SELFPAY | PROVIDERS: Visit Provider Radiology Diagnostic Radiology | DX: Z12.31 Encounter for screening mammogram for malignant neoplasm of breast (principal) | CPT/HCPCS: 77063; 77067 ==

== ENCOUNTER 2024-03-06 09:20 | Outpatient (REF) | payer OTHER, SELFPAY ==
--- NOTE | ~2024-03-06 | XR_ITS ---
EXAMINATION: XR CHEST CLINICAL INFORMATION: Cough. Wheezing. History of smoking. COMPARISON: None available. TECHNIQUE: 2 views of the chest were obtained. FINDINGS: No significant abnormality is noted involving the heart, lungs, mediastinum, bony thorax or soft tissues. Mildly atherosclerotic and uncoiled aorta, suggesting hypertension. Calcification of the carotid bulbs. Mild degenerative changes of the spine. Lower lumbar anterior fixation plate and screws. Status post cholecystectomy. XR/XR chest 2V IMPRESSION: No acute finding. Electronically signed by: Pablito Esteves MD 03/06/2024 10:53 AM EDT
--- NOTE | ~2024-03-06 | XR_ITS ---
EXAMINATION: XR LUMBOSACRAL SPINE CLINICAL INFORMATION: Chronic low back pain with radiation to the left leg. COMPARISON: July 06, 2022. TECHNIQUE: Three views of the lumbosacral spine. FINDINGS: Mild multilevel lumbar disc space narrowing. Mild facet degenerative change at L4-S1. No evidence of spondylolysis or significant spondylolisthesis. Vertebral body heights and alignment appear maintained. No lytic or sclerotic bony lesion is seen. The paraspinal soft tissues appear unremarkable. Aortoiliac calcification. Status post cholecystectomy. XR/XR lumbar spine 2-3V IMPRESSION: Findings as above. Electronically signed by: Pablito Esteves MD 03/06/2024 10:49 AM EDT RP
[2024-03-06 11:11] LABS: MANUAL DIFF FLAG NO
[2024-03-06 11:15] LABS: Basophils Percent Auto 0.5 % (0-2); Eosinophils Absolute Auto 0.1 X10*3/uL (0.0-0.4); Eosinophils Percent Auto 2.3 % (0-4); Hematocrit 40.6 % (37.0-47.0); Hemoglobin 13.4 g/dl (12.0-16.0); Imm Gran Abs Auto 0.02 X10*3/uL (0.00-0.03); Imm Gran Pct Auto 0.4 % (0.0-0.4); Lymphocytes Absolute Auto 1.9 X10*3/uL (1.2-4.9); Lymphocytes Percent Auto 33.2 % (20-40); Mean Corpuscular Hemoglobin 29.6 pg (27.0-33.0); Mean Corpuscular Volume 89.6 fL (80.0-98.0); Mean Platelet Volume 10.8 fL (9.4-12.3); Monocytes Absolute Auto 0.5 X10*3/uL (0.1-1.2); Monocytes Percent Auto 8.9 % (2-11); Neutrophils Absolute Auto 3.1 x10*3/uL (2.0-8.3); Neutrophils Percent Auto 54.7 % (45-73); Platelet Count 236 X10*3/uL (160-400); Red Blood Count 4.53 X10*6/uL (4.20-5.50); Red Cell Distribution Width 14.9 % (11.0-16.0); White Blood Count 5.6 X10*3/uL (4.8-10.8)
[2024-03-06 11:32] LABS: Alanine Aminotransferase 20 U/L (0-31); Albumin Level 4.5 g/dL (3.5-5.0); Alkaline Phosphatase 49 U/L (39-117); Anion Gap 14 (12-20); Aspartate Amino Transferase 23 U/L (5-31); Bilirubin Total 0.5 mg/dL (0.0-1.0); Blood Urea Nitrogen 11 mg/dL (9-16); Calcium 9.7 mg/dL (8.4-10.2); Carbon Dioxide 26 mmol/L (22-29); Chloride 110 mmol/L (96-108); Cholesterol 204 mg/dL (<200); Estimated Glomerular Filt Rate > 60; Glucose Random 120 mg/dL (60-115); HDL Cholesterol 42 mg/dL (>40); LDL Cholesterol Calculated 131 mg/dL (<100); Potassium 3.6 mmol/L (3.3-5.1); Sodium 146 mmol/L (135-145); Total Protein 7.5 g/dL (6.5-8.0); Triglycerides 159 mg/dL (<150)
[2024-03-06 11:53] LABS: Creatinine Urine 127.23 mg/dL; Microalbum/Creatinine Ratio Ur 38.5 ug/mg cr (<30)
== END 2024-03-06 09:21 | disposition home or self-care (01) ==
LOC: HO.HHCL 09:20
PROVIDERS: Visit Provider Internal Medicine Geriatric Medicine
DX: E11.69 Type 2 diabetes mellitus with other specified complication (principal); M54.42 Lumbago with sciatica, left side; G89.29 Other chronic pain; J45.909 Unspecified asthma, uncomplicated
CPT/HCPCS: 36415; 71046; 72100; 80053; 80061; 82043; 82570; 85025

== ENCOUNTER 2024-08-21 13:50 | Outpatient (REF) | payer OTHER, SELFPAY ==
--- NOTE | ~2024-08-21 | XR_ITS ---
EXAMINATION: XR LUMBAR SPINE 4 OR MORE VIEWS HISTORY: Exacerbation of chronic low back pain, left leg radicular pain COMPARISON: Comparison is made with the prior examination dated 03/06/2024. FINDINGS: AP, lateral, bilateral oblique, and coned down views of the lumbar spine are submitted. The bones are osteopenic. Five nonrib-bearing lumbar vertebral bodies are identified, maintaining normal height without evidence of fracture. There is minimal spondylolisthesis of L4 on L5. There is mild degenerative disc disease with disc space narrowing. 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 There is calcification of the abdominal aorta. XR/XR lumbar spine 4V min IMPRESSION: Osteopenia. Minimal spondylolisthesis of L4 on L5. Mild degenerative disc disease. Electronically signed by: Ethan Alejandre MD 08/21/2024 02:19 PM EDT
--- OUTSIDE RECORDS SUMMARY | 2024-08-21 16:23 | XMS_ITS | Encounter Summary ---
Author Organization [employer] Address [address] [place] [address] [address] [place] [address] Care Team Providers Care Mine Engineering Superintendent Name Role Phone Name, Oscar CALI Primary Care Provider [phone] Reason for Visit * Reason Comments Med Refill Encounter Details Date Type Department Care Team ([facility] Contact Info) Description 08/01/2024 Refill [facility] [address] [place] [id number] Padmini Hooks MD [address] [place] [address] Asthma, unspecified asthma severity, unspecified whether complicated, unspecified whether persistent Social History Tobacco Use Types Packs/Day Years Used Date Smoking Tobacco: Every Day Cigarettes Passive Smoke Exposure: Current Smokeless Tobacco: Never Alcohol Use Standard Drinks/Week Comments Never 0 (1 standard drink = 0.6 oz pur e alcohol) Depression Answer Date Recorded Patient Health Questionnaire-9 Score 0 11/16/2022 Housing Stability Answer Date Recorded What is your housing situation today? I have khanh tse 03/23/[address] you li ve. Do you have problems with any of the following? None of the above 03/23/2023 Food Insecurity Answer Date Recorded Within the past 12 months, y ou worried that your food would run out before you got money to buy more: Never True 03/23/2023 Within the past 12 months,th e food you bought just didn't last and you didn't have enough money to get more: Never True Transportation Answer Date Recorded In the past 12 months, has l ack of transportation kept you from medical appts, meetings, work or from getting things needed for daily living? No 03/23/2023 Utilities Answer Date Recorded In the past 12 months, has t he electric, gas, oil or water company threatened to shut off services in your home? No 03/23/2023 Depression Answer Date Recorded Patient Health Questionnaire-2 Score 0 11/16/2022 Comments Unknown Sex and Gender Information Value Date Recorded Sex Assigned at Female 04/05/2022 10:14 AM EDT Legal Sex Female 10:14 AM EDT Gender Identity Female 04/05/2022 10:14 AM EDT Sexual Orientation Straight 04/05/2022 10 :14 AM EDT documented as of this encounter Plan of Treatment Upcoming Encounters Date Type Department Care Team (Late st Contact Info) Description 09/25/2024 3:15 PM EDT Office Visit [facility] [address] [place] [address] Name, MD Oscar [address] [place] [address] documented as of this encounter Goals Goal Patient Goal Type Associated Problems Recent Progress Patient-Stated? Author Record your blood pressure once per day Blood Pressure No Olya Higgins Blood Pressure < 140/90 Blood Pressure 147/84(2024 1:24 PM EDT) No Olya Higgins Patient will adhere to medication regimen General No Olya Higgins documented as of this encounter Visit Diagnoses Diagnosis Asthma, unspecified asthma severity, unspecified whether complicated, unspecified whether persistent documented in this encounter Additional Health Concerns Assessment Noted Time PHQ-9 Depression Total Score: 0 11/17/19 23 1:07 PM EDT documented as of this encounter Care Teams Mine Engineering Superintendent Relationship Specialty Start Date End Date Name, MD Oscar [address] [place] [address] PCP - General Family Medicine 08/19/15 documented as of this encounter
--- OUTSIDE RECORDS SUMMARY | 2024-08-21 16:23 | XMS_ITS | Encounter Summary ---
Author Organization [employer] Address [address] [place] [address] 7 [place] [address] Care Team Providers Care Sales And Service Technician Name Role Phone NameOscar MD Primary Care Provider [phone] Encounter Details Date Type Department Care Team (Late st Contact Info) Description 05/20/[address] [facility] [address] [place] [address] Moon Ruggiero LPN Social History Tobacco Use Types Packs/Day Years Used Date Smoking Tobacco: Never Assessed Comments Unknown Sex and Gender Information Value [...] Description 09/25/2024 3:15 PM EDT Office Visit [facility] [address] [place] [phone] NameOscar MD [address] [place] [phone] documented as of this encounter Visit Diagnoses Not on filedocumented in this encounter Care Teams Sales And Service Technician Relationship Specialty Start Date End Date Oscar Coffey MD [address] [place] [phone] PCP - General Family Medicine 08/19/15 documented as of this encounter
--- OUTSIDE RECORDS SUMMARY | 2024-08-21 16:23 | XMS_ITS | Encounter Summary ---
Author Organization [employer] Address [address] [facility] 7t [place] [address] Care Team Providers Care Child Day Care Provider Name Role Phone Name, Oscar CALI Primary Care Provider [phone] Reason for Visit * Reason Comments Back Pain Encounter Details Date Type Department Care Team ([facility] Contact Info) Description 08/21/2024 1:20 PM EDT Office Visit [facility] [address] [phone] Name, MD Oscar [address] [place] [phone] Acute on chronic low back pain (Primary Dx); Radicular syndrome of left leg Social History Tobacco Use Types Packs/Day Years [...] AM EDT documented as of this encounter Last Filed Vital Signs Vital Sign Reading Time Taken Comments Blood Pressure 147/84 08/21/2024 1:24 PM EDT Pulse 69 08/21/2024 1:24 PM EDT Temperature 36.6 ??C (97.9 ??F) 08/21/2024 1:24 PM ED T Respiratory Rate 18 08/21/2024 1:24 PM EDT Oxygen Saturation 97% 08/21/2024 1:24 PM EDT Inhaled Oxygen Concentration - - Weight 71.7 kg (158 lb) 08/21/2024 1:24 PM EDT Height - - Body Mass Index 30.86 05/16/2024 3:53 PM EST documented in this encounter Progress Notes * Oscar Coffey MD - 08/21/2024 1:20 PM EDT Subjective Patient ID: Khadra Galan is a 78 y.o. female who presents for Back Pain. Patient comes for a sick visit. She complains of about a week of exacerbation of chronic low back pain. She describes radiation of the pain to the left leg. She tells me she had a fall about 2 weeks ago. The patient was trying to sit on her toilet. She missed the toilet seat and ended up landing onthe floor. 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 Her last bone density test available was normal in 2020. She does not have any focal weakness. No associated GI or complaints. No fevers or chills. Review of Systems Constitutional: Negative for chills and fever. HENT: Negative for sore throat. Respiratory: Negative for cough, shortness of breath and wheezing. Cardiovascular: Negative for chest pain, palpitations and leg swelling. Gastrointestinal: Negative for abdominal pain. Musculoskeletal: Positive for back pain. Visit Vitals BP (!) 147/84 (BP Location: Left arm, Patient Position: Sitting, BP Cuff Size: Adult) Pulse 69 Temp 97.9 ??F (36.6 ??C) (Temporal) Resp 18 Wt 158 lb (71.7 kg) SpO2 97% BMI 30.86 kg/m?? Smoking Status Every Day BSA 1.74 m?? Objective Physical Exam Constitutional: General: She is in acute distress. Appearance: She is not toxic-appearing. Cardiovascular: Rate and Rhythm: Normal rate and regular rhythm. Pulmonary: Effort: Pulmonary effort is normal. No respiratory distress. Musculoskeletal: Lumbar back: Spasms and tenderness present. No bony tenderness. Neurological: General: No focal deficit present. Motor: No weakness. Assessment/Plan Diagnoses and all orders for this visit: Acute on chronic low back pain Comments: Patient has exacerbation of chronic low back pain after a fall. She has underlying DJD. I recommended to check x-ray to rule out compression fracture. Short course of prednisone and muscle relaxants.Further recommendation based on the results and response to the medication. She is encouraged to call or come back if she does not feel much better in 3 to 4 days. Orders: - XR Lumbar Spine Complete 4+ Views; Future Radicular syndrome of left leg - XR Lumbar Spine Complete 4+ Views; Future Other orders - predniSONE (Deltasone) 20 MG tablet; Take 2 tablets (40 mg) by mouth Once per day for 5 days. - baclofen (Lioresal) 20 MG tablet; Take 1 tablet (20 mg) by mouth 3 times daily for 10 days. documented in this encounter Plan of Treatment Upcoming Encounters Date Type Department Care Team (Late st Contact Info) Description 09/25/2024 3:15 PM EDT Office Visit [facility] [address] [place] [address] Name, MD Oscar [address] [place] [address] documented as of this encounter Goals Goal Patient Goal Type Associated Problems Recent Progress Patient-Stated? Author Record your blood pressure once per day Blood Pressure No Olya Higgins Blood Pressure < 140/90 Blood Pressure 147/84(2024 1:24 PM EDT) No Olya Higgins Patient will adhere to medication regimen General No Ronaldo Dobson documented as of this encounter Procedures Procedure Name Priority Date/Time Associated Diagnosis Comments XR LUMBAR SPINE COMPLETE 4+ VIEWS Routine 08/21/2024 1:51 PM EDT Acute on chronic low back pain Radicular syndrome of left leg documented in this encounter Results * XR Lumbar Spine Complete 4+ Views (08/21/2024 1:51 PM EDT) Anatomical Region Laterality Modality Spine, L-spine Radiographic Kayleigh ging 08/21/2024 1:51 PM EDT Narrative 08/21/2024 2:24 PM EDT ?[facility] ?[address] ?[place] [address] ?XRay Report ? Signed ? Patient: Khadra Neal ?MR#: [id number] ?? [id number] ? : 1945 ?Acct:[id number] ? Age/Sex: 78 / F ?ADM Date: 08/21/24 ? Loc: HO.HHCX ? Attending Dr: Oscar Coffey MD ? Ordering Physician: Oscar Coffey MD ?? Date of Service: 08/21/24 ?? Procedure(s): XR lumbar spine 4V min ?? Accession Number(s): [id number] ? cc: Oscar Coffey MD ? EXAMINATION: ??XR LUMBAR SPINE 4 OR MORE VIEWS ? HISTORY: Exacerbation of chronic low back pain, left leg radicular pain ? COMPARISON: Comparison is made with the prior examination dated ?? 03/06/2024. ? FINDINGS: ??AP, lateral, bilateral oblique, and coned down views of the ?? lumbar spine are submitted. ??The bones are osteopenic. ??Five ?? nonrib-bearing lumbar vertebral bodies are identified, maintaining ?? normal height without evidence of fracture. There is minimal ?? spondylolisthesis of L4 on L5. ??There is mild degenerative disc disease ?? with disc space narrowing. 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 ??There is calcification of the abdominal aorta. ? XR/XR lumbar spine 4V min ?? IMPRESSION: ?? Osteopenia. Minimal spondylolisthesis of L4 on L5. Mild degenerative ?? disc disease. ? Electronically signed by: ??Ethan Alejandre MD ??08/21/2024 02:19 PM EDT ? Dictated By: ?Ethan Alejandre MD ? Signed By: ?<Electronically signed by Ethan Alejandre MD in OV> ?08/21/24 1419 ? DD/ 1351 ? TD/TT: 08/21/24 1400 ? Risk Control Analyst: ? Procedure Note Christa, Nano - 08/21/[address] [address] XRay Report Signed Patient: Jacki Neal#: [id number] : 8Acct:[id number] Age/Sex: 78 / FADM Date: 08/21/24 Loc: HO.HHCX Attending Dr: Oscar Coffey MD Ordering Physician: Oscar Coffey MD Date of Service: 08/21/24 Procedure(s): XR lumbar spine 4V min Accession Number(s): [id number] cc: Oscar Coffey MD EXAMINATION: XR LUMBAR SPINE 4 OR MORE VIEWS HISTORY: Exacerbation of chronic low back pain, left leg radicular pain COMPARISON: Comparison is made with the prior examination dated 03/06/2024. FINDINGS: AP, lateral, bilateral oblique, and coned down views of the lumbar spine are submitted. The bones are osteopenic. Five nonrib-bearing lumbar vertebral bodies are identified, maintaining normal height without evidence of fracture. There is minimal spondylolisthesis of L4 on L5. There is mild degenerative disc disease with disc space narrowing. 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 There is calcification of the abdominal aorta. XR/XR lumbar spine 4V min IMPRESSION: Osteopenia. Minimal spondylolisthesis of L4 on L5. Mild degenerative disc disease. Electronically signed by: Ethan Alejandre MD 08/21/2024 02:19 PM EDT Dictated By: Ethan Alejandre MD Signed By: <Electronically signed by Ethan Alejandre MD in OV> 08/21/24 1419 DD/ 1351 TD/TT: 08/21/24 1400 Risk Control Analyst: Oscar Name IMG XR PROCEDURES Final Result documented in this encounter Visit Diagnoses Diagnosis Acute on chronic low back pain- Primary Radicular syndrome of left leg documented in this encounter Additional Health Concerns Assessment Noted Time PHQ-9 Depression Total Score: 0 11/17/19 23 1:07 PM EDT documented as of this encounter Care Teams Child Day Care Provider Relationship Specialty Start Date End Date Name, MD Oscar [address] [place] [address] PCP - General Family Medicine 08/19/15 documented as of this encounter
--- OUTSIDE RECORDS SUMMARY | 2024-08-21 16:23 | XMS_ITS ---
Author Name Agarwalmarcela TSEEdda MS. Tee Wyatt Address [address] [place] [address] Phone [phone] [facility] Care Team Providers Care Armhole Baster Jumpbasting Name Role Phone Sheri Agarwal Unavailable [phone] Reason for Referral Not Available Allergies, adverse reactions, alerts No known allergies History of medication use Medication Class Instructions Start Date End Date Estradiol 0.1 mg/GM Crm APPLY A PEA SIZE TO URETHRA DAILY 2021-05-04 No Data Available Raloxifene 60 mg Tab TAKE 1 TABLET BY MO UTH EVERY DAY 2021-09-14 No Data Available Simvastatin 20 mg Tab TAKE 1 TABLET BY M OUTH EVERY DAY IN THE EVENING 2021-08-31 No Data Available Myrbetriq 25 mg Tab ER 24hr TAKE 1 TAB BY MOUTH DAILY 2021-07-03 2024-07-16 Albuterol Sulfate HFA 108 (9 0 Base) MCG/ACT Aerosol Solution INHALE 2 PUFFS BY MOUTH EVERY 4-6 HOURS NEEDED NEEDED 2021-11-03 No Data Available Fluticasone Propionate 50 MCG/ACT Suspension INHALE TWO SPRAYS IN EACH NOSTRIL DAILY 2021-08-10 No Data Available metFORMIN 500 mg Tab TAKE ONE TABLET ELDON RY DAY WITH a MEAL 2021-09-15 No Data Available Nystatin 105845 UNIT/GM Crm APPLY TO THE AFFECTED AREA(S) TWICE DAILY FOR 2 WEEKS 2021-12-16 No Data Available OneTouch Delica Plus Lancet3 3G Miscellaneous TEST BLOOD SUGAR EVERY DAY 2021-03-30 No Data Avail able OneTouch Verio Strip TEST BLOOD SUGAR EVERY DAY 2020-06 No Data Available Hydrocortisone 2.5 % Crm APPLY A THIN [place] TO AFFECTED AREA(S) TWICE DAILY 2022-02-23 No Data Available Cetirizine 10 mg Tab TAKE 1 TABLET BY MO UTH EVERY DAY 2022-02-23 No Data Available Baclofen 20 mg Tab TAKE 1 TABLET BY TANNER TH TWICE DAILY 2022-03-25 No Data Available LORazepam 0.5 mg Tab TAKE 1 TABLET BY MO UTH EVERY DAY NEEDED FOR ANXIETY AND FOR SLEEP 2022-05-04 2024-07-16 Cyclobenzaprine 10 mg Tab TAKE 1/2 TABLE T BY MOUTH AT BEDTIME NEEDED FOR MUSCLE SPASMS 2022-07-06 No Data Available Albuterol Sulfate (2.5 mg/3M L) 0.083% Nebulization Solution Inhalation 3 ml via nebulizer every 4-6 hours as needed for SOB, wheezing 2022-09-02 No Data Available traZODone 50 mg Tab TAKE 1 TABLET BY TANNER TH AT BEDTIME 2024-02-28 2024-07-16 Ooolala 2 w/Device Kit USE DIR ECTED TO TEST BLOOD SUGAR 2023-06-15 No Data Available Alcohol Prep 70 % Pad USE DIRECTED ONCE DAILY 06-15 No Data Available Acetaminophen Extra Strength 500 mg Tab TAKE 1 TABLET BY MOUTH EVERY 8 HOURS NEEDED FOR MODERATE PAIN 2023-06-21 No Data Available Azelastine 0.05 % Solution INSTILL 1 RUPERTO P IN EACH EYE TWICE DAILY 2023-06-21 No Data Available Arnuity Ellipta 100 MCG/ACT Aerosol Powder Breath Activated No Data Available 2023-07-28 No Data Available predniSONE 20 mg Tab TAKE 2 TABLETS BY M OUTH EVERY DAY FOR 5 DAYS 2023-07-28 No Data Available Medbox Status USE DIRECTED 2023-02-21 No Data Roya ilable Arnuity Ellipta 100 MCG/ACT Aerosol Powder Breath Activated INHALE 1 PUFF BY MOUTH EVERY DAY AT THE SAME TIME RINSE MOUTH AFTER USING. RINSE MOUTH AFTER USING. 2023-10-04 No Data Available amLODIPine Besylate 10 mg Tab TAKE 1 TAB LET BY MOUTH EVERY MORNING 2023-10-20 No Data Available Celecoxib 200 mg Cap TAKE 1 CAPSULE BY M OUTH TWICE DAILY 2024-02-28 No Data Available Fluticasone-Salmeterol 100-5 0 MCG/ACT Aerosol Powder Breath Activated INHALE 1 PUFF BY MOUTH TWICE DAILY RINSE MOUTH AFTER USING 2024-02-28 No Data Available Omeprazole 20 mg Cap delayed rel TAKE 1 CAPSULE BY MOUTH EVERY MORNING 2023-09-20 No Data Available MULTIVITAMIN TABLET TAKE 1 TABLET BY TANNER TH EVERY MORNING 2023-12-30 No Data Available Diaper Rash 40 % Oint APPLY TOPICALLY TO THE AFFECTED AREA(S) EVERY DAY NEEDED FOR IRRITATION 2024-05-16 No Data Available Clotrimazole 1 % Crm APPLY 1 GRAM TOPICA LLY TO THE AFFECTED AREA(S) TWICE DAILY DIRECTED FOR 28 DAYS 2024-05-16 No Data Available oxyBUTYnin Chloride ER 10 mg Tab ER 24hr 1 tablet orally once daily 2024-07-16 No Data Avail able Problem List Problem Status Onset Date Resolved Date 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 2022-03-19 N/A Malignant neoplasm of unspec ified site of left female breast Active 2022-03-12 N/A Other problems related to [place] facilities and other health care Active 2024-07-17 N/A Other problems related to [place] facilities and other health care Resolved 2023-11-29 2024-07-17 Fall in home, sequela Active 2023-11-29 N/A Type 2 diabetes mellitus wit h other diabetic ophthalmic complicationCataractGlaucoma Active 2022-03-12 N/A Overactive bladder Active 2022-03-12 N/A COPD (chronic obstructive pulmonary disease) Active 2022-03-12 N/A Encounters Encounters Type Facility Date of Service Diagnosis/Complaint Pain Assessment - Pain Documented on a Pain Scale (1125F) [facility] [place] [place] Pain Assessment - Pain Documented on a Pain Scale (1125F) [facility] [place] Pain Assessment - Pain Documented on a Pain Scale (1125F) [facility] [place] Pain Assessment - Pain Documented on a Pain Scale (1125F) [facility] [place] Pain Assessment - Pain Documented on a Pain Scale (1125F) [facility] [place] Pain Assessment - Pain Documented on a Pain Scale (1125F) [facility] [place] Pain Assessment - Pain Documented on a Pain Scale (1125F) [facility] [place] Pain Assessment - Pain Documented on a Pain Scale (1125F) [facility] [place] Pain Assessment - Pain Documented on a Pain Scale (1125F) [facility] [place] Malignant neoplasm of unspec ified site of left female breastType 2 diabetes mellitus with diabetic cataractType 2 diabetes mellitus with other diabetic ophthalmic complicationUnspecified cataractUnspecified glaucomaChronic obstructive pulmonary disease, unspecifiedOveractive bladder RN, CN or CP time with patient by phone; use with 1111F, BP, A1c or other CPTII codes [facility] [place] Encounter for other specifie d aftercare RN, CN or CP time with patient by phone; use with 1111F, BP, A1c or other CPTII codes [facility] [place] 07[place] Estab. patient 30-39min; chronic exacerbation, 2 stable chronic or 1 acute illness add add modifier 95 for video, (do not use for phone, instead use [id number]) [facility] [place]20[place] Overactive bladderType 2 risa betes mellitus with other diabetic ophthalmic complicationUnspecified cataractUnspecified glaucomaMalignant neoplasm of unspecified site of left female breastEndocrine disorder, unspecifiedChronic obstructive pulmonary disease, unspecifiedImmunodeficiency due to conditions classified elsewhere Estab. patient 30-39min; chronic exacerbation, 2 stable chronic or 1 acute illness add add modifier 95 for video, (do not use for phone, instead use 24559-20) [facility] [place] Estab. patient 30-39min; chronic exacerbation, 2 stable chronic or 1 acute illness add add modifier 95 for video, (do not use for phone, instead use 44792-28) [facility] [place] Estab. patient 30-39min; chronic exacerbation, 2 stable chronic or 1 acute illness add add modifier 95 for video, (do not use for phone, instead use 15156-39) [facility] [place] Estab. patient 30-39min; chronic exacerbation, 2 stable chronic or 1 acute illness add add modifier 95 for video, (do not use for phone, instead use 64452-30) [facility] [place] Estab. patient 30-39min; chronic exacerbation, 2 stable chronic or 1 acute illness add add modifier 95 for video, (do not use for phone, instead use 41788-48) [facility] [place] Estab. patient 30-39min; chronic exacerbation, 2 stable chronic or 1 acute illness add add modifier 95 for video, (do not use for phone, instead use 83144-52) [facility] [place] Estab. patient 30-39min; chronic exacerbation, 2 stable chronic or 1 acute illness add add modifier 95 for video, (do not use for phone, instead use 85889-37) [facility] [place] Estab. patient 30-39min; chronic exacerbation, 2 stable chronic or 1 acute illness add add modifier 95 for video, (do not use for phone, instead use 63923-61) [facility] [place] Estab. patient 30-39min; chronic exacerbation, 2 stable chronic or 1 acute illness add add modifier 95 for video, (do not use for phone, instead use 61532-16) [facility] [place]2023 Type 2 diabetes mellitus wit h other diabetic ophthalmic complicationType 2 diabetes mellitus with diabetic cataractOther problems related to medical facilities and other health careOveractive bladderMalignant neoplasm of unspecified site of left female breastEndocrine disorder, unspecifiedChronic obstructive pulmonary disease, unspecifiedUnspecified asthma, uncomplicatedImmunodeficiency due to conditions classified elsewhereUnsteadiness on feetUnspecified fall, sequelaUnsp place in [facility] as place Estab. patient 30-39min; chronic exacerbation, 2 stable chronic or 1 acute illness add add modifier 95 for video, (do not use for phone, instead use 37339-56) [facility] [place] Estab. patient 30-39min; chronic exacerbation, 2 stable chronic or 1 acute illness add add modifier 95 for video, (do not use for phone, instead use 23648-08) [facility] [place] Estab. patient 30-39min; chronic exacerbation, 2 stable chronic or 1 acute illness add add modifier 95 for video, (do not use for phone, instead use 54270-75) [facility] [place] Estab. patient 30-39min; chronic exacerbation, 2 stable chronic or 1 acute illness add add modifier 95 for video, (do not use for phone, instead use 02623-06) [facility] [place] Estab. patient 30-39min; chronic exacerbation, 2 stable chronic or 1 acute illness add add modifier 95 for video, (do not use for phone, instead use 96919-48) [facility] [place] Estab. patient 30-39min; chronic exacerbation, 2 stable chronic or 1 acute illness add add modifier 95 for video, (do not use for phone, instead use 61301-32) [facility] [place] Estab. patient 30-39min; chronic exacerbation, 2 stable chronic or 1 acute illness add add modifier 95 for video, (do not use for phone, instead use 21398-47) [facility] [place] Estab. patient 30-39min; chronic exacerbation, 2 stable chronic or 1 acute illness add add modifier 95 for video, (do not use for phone, instead use 27964-92) [facility] [place] Estab. patient 30-39min; chronic exacerbation, 2 stable chronic or 1 acute illness add add modifier 95 for video, (do not use for phone, instead use 28072-30) [facility] [place] Estab. patient 20-29min; 1 stable chronic or 2 minor; add add modifier 95 for video, modifier 93 for phone [facility] [place] 07[place]2024 Type 2 diabetes mellitus wit h other diabetic ophthalmic complicationGlaucoma in diseases classified elsewhereChronic obstructive pulmonary disease, unspecifiedUnspecified cataractOveractive bladderPersonal history of malignant neoplasm of breastEndocrine disorder, unspecifiedImmunodeficiency due to conditions classified elsewhereUnsp place in [facility]) residence as placeUnsteadiness on feetUnspecified fall, sequelaOther problems related to medical facilities and other health care Estab. patient 20-29min; 1 stable chronic or 2 minor; add add modifier 95 for video, modifier 93 for phone [facility] [place] Estab. patient 20-29min; 1 stable chronic or 2 minor; add add modifier 95 for video, modifier 93 for phone [facility] [place]16[place] Estab. patient 20-29min; 1 stable chronic or 2 minor; add add modifier 95 for video, modifier 93 for phone [facility] [place] 07[place]16[place] Estab. patient 20-29min; 1 stable chronic or 2 minor; add add modifier 95 for video, modifier 93 for phone [facility] [place] 07[place]16/20[place] Estab. patient 20-29min; 1 stable chronic or 2 minor; add add modifier 95 for video, modifier 93 for phone [facility] [place] 07/16/2024 Estab. patient 20-29min; 1 stable chronic or 2 minor; add add modifier 95 for video, modifier 93 for phone [facility] [place] 07/16/20[place] Estab. patient 20-29min; 1 stable chronic or 2 minor; add add modifier 95 for video, modifier 93 for phone [facility] [place] 07/16/2024 Estab. patient 10-29min; 1 minor problem; add add modifier 95 for video, modifier 93 for phone [facility] [place]/2024 Overactive bladderChronic obstructive pulmonary disease, unspecifiedUnspecified asthma, uncomplicated Vital Signs Date of Collection Vitals 2022-03-18 12:49:57 Height - 154.94 cmWe ight - 65.77 kgBody Mass Index (BMI) - 27.4 kg/m2BP Diastolic - 70.0 mm[Hg]BP Systolic - 140.0 mm[Hg] 2022-09-02 12:25:59 Height - 152.4 cmWei ght - 63.5 kgBody Mass Index (BMI) - 27.34 kg/m2BP Diastolic - 50.0 mm[Hg]BP Systolic - 120.0 mm[Hg] 2023-11-29 11:10:43 Height - 154.94 cmWe ight - 68.95 kgBody Mass Index (BMI) - 28.72 kg/m2BP Diastolic - 80.0 mm[Hg]BP Systolic - 130.0 mm[Hg]Pain Scale - 6.0 {score} 2024-07-16 08:46:27 Height - 152.4 cmWei ght - 68.04 kgBody Mass Index (BMI) - 29.29 kg/m2BP Diastolic - 70.0 mm[Hg]BP Systolic - 130.0 mm[Hg]Pain Scale - 0.0 {score} Social History Social History Social History Observation Description Effec tive Time Current Smoking Status Current every day smoker 2024-08-21 Sex Female Gender identity Woman History of Procedures Procedures Service Procedure code Service date Servicing provider Phone# Pain Assessment - Pain Documented on a Pain Scale (1125F) 1125F 2022-03-18 No Data Available No Data Roya ilable Medication List Documented (1159F) 1159F 2022-03-18 No Data Available No Data Roya ilable Medication Review by prescribing provider or pharmacist documented (1160F) 1160F 2022-03-18 No Data Available No Data Roya ilable Functional Status Assessed (1170F) 1170F 2022-03-18 No Data Available No Data Avail able Advance Care Directive Advance care planning discussion documented in the medical record (1158F) 1158F 2022-03-18 No Data Available No Data Availa ble BMI obtained (3008F) 3008F 2022-03-18 No Data Availab le No Data Available SBP >= 140 3077F 2022-03-18 No Data Available No Data Available DBP <80 (3078F) 3078F 2022-03-18 No Data Available No Data Available New patient,40-59min; chronic exacerbation, 2 stable chronic or 1 acute illness add add modifier 95 for video (do not use for phone, instead use 19735-42) 00670 2022-03-18 No Data Available No Data Availa ble RN, CN or CP time with patient by phone; use with 1111F, BP, A1c or other CPTII codes 86406 2022-07-08 No Data Available No Data Avai lable Medications prescribed in hospital were reviewed and reconciled against what they were taking prior to admission during today's visit. (1111F) 1111F 2022-07-08 No Data Available No Data Availa ble Estab. patient 30-39min; chronic exacerbation, 2 stable chronic or 1 acute illness add add modifier 95 for video, (do not use for phone, instead use 94373-68) 26578 2022-09-02 No Data Available No Data Availa ble Pain Assessment - Pain Documented on a Pain Scale (1125F) 1125F 2022-09-02 No Data Available No Data Roya ilable Medication List Documented (1159F) 1159F 2022-09-02 No Data Available No Data Roya ilable Medication Review by prescribing provider or pharmacist documented (1160F) 1160F 2022-09-02 No Data Available No Data Roya ilable Functional Status Assessed (1170F) 1170F 2022-09-02 No Data Available No Data Avail able Advance Care Directive Advance care planning discussion documented in the medical record (1158F) 1158F 2022-09-02 No Data Available No Data Availa ble BMI obtained (3008F) 3008F 2022-09-02 No Data Availab le No Data Available SBP < 130 (3074F) 3074F 2022-09-02 No Data Available No Data Available DBP <80 (3078F) 3078F 2022-09-02 No Data Available No Data Available Estab. patient 30-39min; chronic exacerbation, 2 stable chronic or 1 acute illness add add modifier 95 for video, (do not use for phone, instead use 97990-82) 55569 2023-11-29 No Data Available No Data Availa ble Medication Review by prescribing provider or pharmacist documented (1160F) 1160F 2023-11-29 No Data Available No Data Roya ilable Medication List Documented (1159F) 1159F 2023-11-29 No Data Available No Data Roya ilable Functional Status Assessed (1170F) 1170F 2023-11-29 No Data Available No Data Avail able SBP 130-139 (3075F) 3075F 2023-11-29 No Data Availabl e No Data Available DBP 80-89 (3079F) 3079F 2023-11-29 No Data Available No Data Available BMI obtained (3008F) 3008F 2023-11-29 No Data Availab le No Data Available Pain Assessment - Pain Documented on a Pain Scale (1125F) 1125F 2023-11-29 No Data Available No Data Roya ilable Advance Care Directive Advance care planning discussion documented in the medical record (1158F) 1158F 2023-11-29 No Data Available No Data Availa ble Advance care planning discussed and documented ? advance care plan or surrogate decision-maker was documented in the medical record. (1123F) 1123F 2023-11-29 No Data Available No Data Availa ble Estab. patient 20-29min; 1 stable chronic or 2 minor; add add modifier 95 for video, modifier 93 for phone 96913 2024-07-16 No Data Available No Data Availa ble SBP 130-139 (3075F) 3075F 2024-07-16 No Data Availabl e No Data Available DBP <80 (3078F) 3078F 2024-07-16 No Data Available No Data Available Pain Assessment - NO pain present (1126F) 1126F 2024-07-16 No Data Available No Data A vailable Advance Care Directive Advance care planning discussion documented in the medical record (1158F) 1158F 2024-07-16 No Data Available No Data Availa ble Advance care planning discussed and documented ? advance care plan or surrogate decision-maker was documented in the medical record. (1123F) 1123F 2024-07-16 No Data Available No Data Availa ble Medication List Documented (1159F) 1159F 2024-07-16 No Data Available No Data Roya ilable Functional Status Assessed (1170F) 1170F 2024-07-16 No Data Available No Data Avail able Estab. patient 10-29min; 1 minor problem; add add modifier 95 for video, modifier 93 for phone 48785 2024-08-01 No Data Available No Data Availa ble Functional Status Functional Category Effective Dates Cognition Status: Oriented to Person, Pl estevan and Time 2022-03-18 Falls in last 6 Months: Yes - 2024-07-17 ADL Eating: Independent; Amb ulation: Needs assistive of walker; Dressing: Some Help Needed; Bathing: Some Help Needed; Toileting: Independent/needs help 2024-07-17 ACQUISITION EDITOR daily 2022-03-18 Cane 2023-11-29 Fall in last 6 mo 2023-11-29 Instrumental Activities of Daily Living (4): 2024-07-17 Medication: Independent 2024-07-17 Shopping: Needs Assistance 2024-07-17 Meal Preparation Needs Assistance 07-17 Laundry: Needs Assistance 2024-07-17 Housework/Cleaning: Needs Assistance 10-05-10 Driving/Using Public Transportation: Niall ds Assistance 2024-07-17 Handling Finances: Independent 2024-07-07 1 Mental Status No Information Assessments Date of Service Assessments 2022-03-18 12:49:57 Overactive bladderTy pe 2 diabetes mellitus with other diabetic ophthalmic complicationCataractGlaucomaMalignant neoplasm of unspecified site of left female breastCOPD (chronic obstructive pulmonary disease) 2022-09-02 12:25:59 Overactive bladderTy pe 2 diabetes mellitus with other diabetic ophthalmic complicationCataractGlaucomaMalignant neoplasm of unspecified site of left female breastCOPD (chronic obstructive pulmonary disease)Immunodeficiency due to conditions classified elsewhere 2023-11-29 11:10:43 Type 2 diabetes carlos itus with other diabetic ophthalmic complicationCataractGlaucomaOther problems related to medical facilities and other health careOveractive bladderMalignant neoplasm of unspecified site of left female breastCOPD (chronic obstructive pulmonary disease)Immunodeficiency due to conditions classified elsewhereFall in home, sequela 2024-07-16 08:46:27 Type 2 diabetes carlos itus with other diabetic ophthalmic complicationCataractGlaucomaOveractive bladderMalignant neoplasm of unspecified site of left female breastCOPD (chronic obstructive pulmonary disease)Immunodeficiency due to conditions classified elsewhereFall in home, sequelaOther problems related to medical facilities and other health care 2024-08-01 08:41:13 Overactive bladderCO PD (chronic obstructive pulmonary disease) Plan of Care Date of Service Plans 2022-03-18 12:49:57 Pain Assessment - Pa in Documented (1125F)Medication Review by prescribing provider or pharmacist documented (1160F)Medication List Documented (1159F)Functional Status Assessed (1170F)Advance Care Directive Advance care planning discussion documented in the medical record (1158F)BMI obtained (3008F)SBP >= 140DBP <80 (3078F)Televideo new patient,40-59min; chronic exacerbation, 2 stable chronic or 1 acute illness add modifier 95Continue to see PCP. Follow-up with [facility] as needed for any acute or disease education needs that may arise.RX: Myrbetriq, estradiol, vagisilWears a pad for protectionRX: Metformindaily blood sugar checks 2-3 x week 145 (03/17/22)Diabetic Eye Exam - 2RX: raloxifeneFollows Oncology every 6 moRX: albuterol inhaler and SymbicortPulse ox 98% - checks dailyFollows PCP every 6 months 2022-07-08 10:08:52 Appointments already scheduled? N/ADid GABY RN successfully schedule member for follow-up visit?: scheduled ECCADID GABY RN advise member to follow-up with [facility] to inform of MD/ specialist recommendations?:YesPlanned date for follow-up with member: scheduled [facility] on 07/28/21 1200-1300Patient Education provided: Advised member to call CB 27/12 w/ any concerns/questions, verbal understandingDel[facility] Plan for Member: Complete [facility] 07/28/22 as scheduled, member will call or push red button for CB 2022-09-02 12:25:59 Medication Review by prescribing provider or pharmacist documented (1160F)Medication List Documented (1159F)Functional Status Assessed (1170F)Advance Care Directive Advance care planning discussion documented in the medical record (1158F)BMI obtained (3008F)SBP < 130 (3074F)DBP <80 (3078F)Televideo 30-39min; chronic exacerbation, 2 stable chronic or 1 acute illness add modifier 95Continue to see PCP. Follow-up with [facility] as needed for any acute or disease education needs that may arise.RX: Myrbetriq, estradiol, vagisilWears a pad for protectionRX: Metforminpt reports last a1c was under 6, hr md told her she no longer has to check her bs in the morning.Diabetic Eye Exam - 2RX: raloxifeneFollows Oncology every 6 moRX: albuterol inhaler and SymbicortPulse ox 98% - checks dailyFollows PCP every 6 monthsimmunodeficiency d/t conditions classified elsewhere based on member has a documented diagnosis that includes malignant neoplasm of female breast, monitor closely for s/s infection 2023-11-29 11:10:43 Medication Review by prescribing provider or pharmacist documented (1160F)Medication List Documented (1159F)Functional Status Assessed (1170F)Advance Care Directive Advance care planning discussion documented in the medical record (1158F)BMI obtained (3008F)SBP < 130 (3074F)DBP <80 (3078F)Televideo 30-39min; chronic exacerbation, 2 stable chronic or 1 acute illness add modifier 95Advance care planning discussed and documented ? advance care plan or surrogate decision-maker was documented in the medical record. (1123F)Pain Assessment - Pain Documented (1125F)Continue to see PCP. Follow-up with [facility] as needed for any acute or disease education needs that may arise.RX: MetforminGlucometer Checks it weekly, last BS 110spt reports last a1c was under 6Routine diabetic Eye ExamsIf you ever take your blood pressure and it is consistently over 170/90 or low 90/50s, have chest pain, shortness of breath, wheezing, fever, or leg swelling call us at [phone]. We are here to help.RX: Myrbetriq, estradiol, vagisilWears a pad for protectionRX: raloxifeneFollows Oncology every 6 moRX: albuterol inhaler and SymbicortHas nebulizer Pulse ox 98% - checks dailyFollows PCP every 6 monthsimmunodeficiency d/t conditions classified elsewhere based on member has a documented diagnosis that includes malignant neoplasm of female breast, monitor closely for s/s infections/p fall Gait unsteady R26.81, W19.XXXSRequesting lightweight [id number], 152 2024-07-16 08:46:27 Functional Status As sessed (1170F)Advance Care Directive Advance care planning discussion documented in the medical record (1158F)Advance care planning discussed and documented ? advance care plan or surrogate decision-maker was documented in the medical record. (1123F)SBP 130-139 (3075F)DBP <80 (3078F)Estab. patient 20-29min; 1 stable chronic or 2 minor; add add modifier 95 for video, modifier 93 for phoneMedication List Documented (1159F)Medication Review by prescribing provider or pharmacist documented (1160F)Pain Assessment - NO pain present (1126F)Continue to see PCP. Follow-up with [facility] as needed for any acute or disease education needs that may arise.07/16/24 RX: MetforminGlucometer Checks [id number] 6.4 on 02/28/24 per outside careRoutine diabetic Eye ExamsRX: Myrbetriq, estradiol, vagisilWears a pad for protection 07/16/24Continues to have urinary frequency and OAB symptoms. Stopped Myrbetriq and started Oxybutynin - Advised on sx to monitor for. Scheduled f/up with [facility] in 2 weeks to evaluate.RX: raloxifeneFollows Oncology every 6 moRX: albuterol inhaler and SymbicortHas nebulizer Pulse ox 98% - checks dailyCurrent smoker - was told her COPD is mild. ANTON recommended smoking cessationFollows PCP every 6 monthsimmunodeficiency d/t conditions classified elsewhere based on member has a documented diagnosis that includes malignant neoplasm of female breast, monitor closely for s/s infections/p fall Gait unsteady R26.81, W19.XXXSRequesting lightweight , 152Patient reporting on 07/16/24 she is unable to use walker without wheels as she can not pick it up and keep her balance. She requested walker with wheels from her PCP.FALL CONTINGENCY PLANNo recent ED visits but has suffered from falls recently. Patient has requested a new walker from PCP, as she can't use the one she has. Member to call for the following symptoms: BP <110/70??/ Vertigo/ WeaknessPlanned intervention: Order x-ray if applicable of injured site / Encourage extra fluid intake / Assess for change in mental status and provide reassurance if none (patient's Baseline is A&O) / Review importance of sitting for two to three minutes prior to standing after laying down 2024-08-01 08:41:13 Estab. patient 10-29 min; 1 minor problem; add add modifier 95 for video, modifier 93 for phoneContinue to see PCP. Follow-up with [facility] as needed for any acute or disease education needs that may arise 27/12.RX: Myrbetriq, estradiol, vagisilWears a pad for protection 07/16/24Continues to have urinary frequency and OAB symptoms. Stopped Myrbetriq and started Oxybutynin - Advised on sx to monitor for. Scheduled f/up with [facility] in 2 weeks to evaluate. 08/01/24 was changes from myrbetriq to oxybutynin and doing much better, frequency has improved substantiallyRX: albuterol inhaler and SymbicortHas nebulizer Pulse ox 98% - checks dailyCurrent smoker - was told her COPD is mild. ANTON recommended smoking cessationFollows PCP every 6 months08/01/24 stable no changes Goals Date Goal 2022-03-18 Remember to keep all appointments with your PCP. 2022-03-18 Call if you have que stions or concerns before going to the ER. 2022-03-18 Discussed how to con tact [facility] via phone or tablet. 2022-09-02 1. Remember to keep all appointments with your PCP.2. Take all medication on time and try to eat healthy3. Call if you have questions or concerns before you go to the ER.4. Discussed how to contact [facility] via phone or tablet. 2024-07-16 Continue taking medi cations as directed and keep all follow up appointments with established PCP and Specialist. 2024-08-01 Continue taking medi cations as directed and keep all follow up appointments with established PCP and Specialist. 2024-08-01 At least 50% of time spent counseling patient, discussing diagnosis, treatment plan, complicance, and coordinating follow up care. Health Concerns Date Concern 2024-08-01 Visit completed via audio by telephone. Patient/Guardian agreed to visit via telehealth.Time spent in visit: 5 minutes 2024-08-01 Most recent hospital stay(s) or ER visit(s) and precipitating factors: denies 2024-08-01 HEDIS review: done
--- OUTSIDE RECORDS SUMMARY | 2024-08-21 16:23 | XMS_ITS | Encounter Summary ---
Author Organization [employer] Address [address] [place] [address] [address]t [place] [address] Care Team Providers Care Classified Advertising Manager Name Role Phone Name, Oscar CALI Primary Care Provider [phone] Reason for Visit * Reason Onset Date Comments Durable Medical Equipment 08/13/2024 Encounter Details Date Type Department Care Team ([facility] Contact Info) Description 08/13/2024 Telephone [facility] [address] [place], [place] [phone] Name, MD Oscar [address] [place] [address] Durable Medical Equipment Social History Tobacco Use Types Packs/Day Years [...] AM EDT documented as of this encounter Miscellaneous Notes * Telephone Encounter - Tiffanie Tellez - 08/17/2024 12:36 PM EDT RX for Disposable underpads/bedpads , inserts/liners, and Walker signed and faxed to [facility] [employer] . Confirmation received and sent to scan. If patient calls to check status on above, please advise them to contact [facility] [employer] [facility] at [phone]. * Telephone Encounter - Tiffanie Tellez - 08/15/2024 1:31 PM EDT RX for Disposable underpads/bedpads , inserts/liners, and Walker generated and placed on PCP desk for signature. * Telephone Encounter - Arnold Luu - 08/13/2024 2:08 PM EDT Tc from Nayely with [facility] requesting Dme for Rollater Walker Disposable Bed Pads Disposable Cotex Pads Contact Nayely at [phone] documented in this encounter Plan of Treatment Upcoming Encounters Date Type Department Care Team (Late st Contact Info) Description 09/25/2024 3:15 PM EDT Office Visit [facility] [address] [place] [address] [phone] Name, MD Oscar [address] [place] [address] documented as of this encounter Goals Goal [...] Diagnoses Not on filedocumented in this encounter Additional Health Concerns Assessment Noted Time PHQ-9 Depression Total Score: 0 11/17/19 23 1:07 PM EDT documented as of this encounter Care Teams Classified Advertising Manager Relationship Specialty Start Date End Date Name, MD Oscar [address] [place] [address] PCP - General Family Medicine 08/19/15 documented as of this encounter
--- OUTSIDE RECORDS SUMMARY | 2024-08-21 16:23 | XMS_ITS | Encounter Summary ---
Author Organization [employer] Address [address] [place] [address] [place] [address] Care Team Providers Care Helminthology Teacher Name Role Phone NameOscar MD Primary Care Provider [phone] Encounter Details Date Type Department Care Team ([facility] Contact Info) Description 11/05/2022 [facility] [employer] Information Management [address] [place] [address] Oscar Coffey MD [address] [place], [place] [phone] Social History Tobacco Use Types Packs/Day Years Used Date Smoking Tobacco: Every Day Cigarettes Smokeless Tobacco: Never Alcohol Use Standard Drinks/Week Comments Never 0 (1 standard drink = 0.6 oz pur e alcohol) Comments Unknown Sex and Gender Information Value Date Recorded Sex Assigned at Female 04/05/2022 10:14 AM EDT Legal Sex Female 10:14 AM EDT Gender Identity Female 04/05/2022 10:14 AM EDT Sexual Orientation Straight 04/05/2022 10 :14 AM EDT documented as of this encounter Plan of Treatment Upcoming Encounters Date Type Department Care Team ([facility] Contact Info) Description 09/25/2024 3:15 PM EDT Office Visit [facility] [address] [place] [address] Oscar Coffey MD [address] [place], [place] [phone] documented as of this encounter Visit Diagnoses Not on filedocumented in this encounter Care Teams Helminthology Teacher Relationship Specialty Start Date End Date NameOscar MD [address] [place] [id number] PCP - General Family Medicine 08/19/15 documented as of this encounter
--- OUTSIDE RECORDS SUMMARY | 2024-08-21 16:23 | XMS_ITS | Encounter Summary ---
Author Organization [employer] Address [address] [facility] 7t [place] [address] Care Team Providers Care Cooker Operator Name Role Phone Name, Oscar CALI Primary Care Provider [phone] Reason for Visit * Reason Onset Date Comments Triage 09/03/2022 Encounter Details Date Type Department Care Team ([facility] st Contact Info) Description 09/03/2022 Telephone [facility] MEDICINE [address] [place] [address] [phone] Name, MD Oscar [address] [place] [address] Triage Social History Tobacco Use Types Packs/Day Years [...] encounter Miscellaneous Notes * Telephone Encounter - Isabelle Duarte RN - 09/03/2022 12:12 PM EDT Call to Khadra Galan, reports having a fall back on July 05. Per pt still having left ankle pain and side of leg becomes warm to touch intermittently. Now walking with a limp. Pt states Tyelnol does not provide much relief. Pt thought referral for orthopedics was placed after compelting MRI of Knee. Pt wants referral done for follow up. Pt advised will send request to PCP team nurses. Pt advised to seek NDC today or Tuesday if sx worsen or any swelling occurs. Pt agrees. Reviewed operating hours and that wait times vary. Pt would like Orthopedic Referral for ongoing knee pain following injury suffered in June. Protocol Used: Knee Injury (Adult) Protocol-Based Disposition: See in Office or Video Visit within 3 Days Positive Triage Question: * Injury is still painful or swollen after 2 weeks * All higher-acuity triage questions were negative Care Advice Discussed: * Use a Cold Pack for Pain, Swelling, or Bruising * Wrap With an Elastic Bandage * Elevate the Leg * Reasons To Call Back - Pain becomes severe - You become worse * Telephone Encounter - Tia Hubbard - 09/03/2022 11:44 AM EDT Symptoms: Pain - Severe, Leg Pain - Not From Injury Outcome: Schedule an urgent appointment (within 1 hour) or talk to a nurse or provider soon Reason: No high acuity concerns reported by caller The caller accepted this outcome Please contact pt at [phone] documented in this encounter Plan of Treatment Upcoming Encounters Date Type Department Care Team (Late st Contact Info) Description 09/25/2024 3:15 PM EDT Office Visit [facility] MED[facility] [address] [place] [address] Name, MD Oscar [address] [place] [address] documented as of this encounter Visit Diagnoses Diagnosis Injury of left knee, subsequent encounter- Primary documented in this encounter Care Teams Cooker Operator Relationship Specialty Start Date End Date NameOscar MD [address] [place] [phone] PCP - General Family Medicine 08/19/15 documented as of this encounter
--- OUTSIDE RECORDS SUMMARY | 2024-08-21 16:23 | XMS_ITS | Encounter Summary ---
Author Organization [employer] Address [address] [facility] 7t [place] [address] Care Team Providers Care Fish Skinning Machine Feeder Name Role Phone Name, Oscar CALI Primary Care Provider [phone] Reason for Visit * Reason Comments Med Refill Encounter Details Date Type Department Care Team ([facility] Contact Info) Description 07/19/2024 Refill [facility]INE [address] [place], [place] [phone] Name, MD Oscar [address] [place] [address] Social History Tobacco Use Types Packs/Day Years [...] Description 09/25/2024 3:15 PM EDT Office Visit [facility] MED[facility] [address] [place] [address] NameOscar MD [address] [place] [address] documented as of this encounter Goals Goal [...] documented as of this encounter Care Teams Fish Skinning Machine Feeder Relationship Specialty Start Date End Date NameOscar MD [address] [place] [address] PCP - General Family Medicine 08/19/15 documented as of this encounter
--- OUTSIDE RECORDS SUMMARY | 2024-08-21 16:23 | XMS_ITS | Encounter Summary ---
Author Organization [employer] Address [address] [place] [address] 7t [place] [address] Care Team Providers Care Waste Management Recycling Technician Name Role Phone Name, Oscar CALI Primary Care Provider [phone] Reason for Visit * Reason Comments Med Refill Encounter Details Date Type Department Care Team ([facility] Contact Info) Description 06/21/2024 Refill [facility] MED[facility]INE [address] [place], [place] [phone] Name, MD Oscar [address] [place] [address] Insomnia, unspecified type Social History Tobacco Use Types Packs/Day Years [...] Description 09/25/2024 3:15 PM EDT Office Visit [facility] MEDICINE [address] [place] [address] NameOscar MD [address] [place] [phone] documented as of this encounter Goals Goal Patient Goal Type Associated Problems Recent Progress Patient-Stated? Author Record your blood pressure once per day Blood Pressure No Olya Higgins Blood Pressure < 140/90 Blood Pressure 147/84(2024 1:24 PM EDT) No Olya Higgins Patient will adhere to medication regimen General No Olya Higgins documented as of this encounter Visit Diagnoses Diagnosis Insomnia, unspecified type documented in this encounter Additional Health Concerns Assessment Noted Time PHQ-9 Depression Total Score: 0 11/17/19 23 1:07 PM EDT documented as of this encounter Care Teams Waste Management Recycling Technician Relationship Specialty Start Date End Date Name, MD Oscar [address] [place] [phone] PCP - General Family Medicine 08/19/15 documented as of this encounter
--- OUTSIDE RECORDS SUMMARY | 2024-08-21 16:23 | XMS_ITS | Encounter Summary ---
Author Organization [employer] Address [address] [facility] 7t [place] [address] Care Team Providers Care Loom Changeover Operator Name Role Phone Name, Oscar CALI Primary Care Provider [phone] Encounter Details Date Type Department Care Team ([facility] Contact Info) Description 11/02/2023 Telephone [facility] [address] [place], [place] [phone] Name, MD Oscar [address] [place] [address] Social History Tobacco Use Types Packs/Day Years Used Date Smoking Tobacco: Every Day Cigarettes Passive Smoke Exposure: Current Smokeless Tobacco: Never Alcohol Use Standard Drinks/Week Comments Never 0 (1 standard drink = 0.6 oz pur e alcohol) Depression Answer Date Recorded Patient Health Questionnaire-9 Score 0 11/16/2022 Housing Stability Answer Date Recorded What is your housing situation today? I have khanhdavid tse 03/23/[address] you [...] Description 09/25/2024 3:15 PM EDT Office Visit [facility] [address] [place] [address] Name, MD Oscar [address] [place] [address] documented as of this encounter Goals Goal [...] documented as of this encounter Care Teams Loom Changeover Operator Relationship Specialty Start Date End Date Name, MD Oscar [address] [place] [address] PCP - General Family Medicine 08/19/15 documented as of this encounter
--- OUTSIDE RECORDS SUMMARY | 2024-08-21 16:23 | XMS_ITS | Encounter Summary ---
Author Organization [employer] Address [address] [place] [address] 7t [place] [address] Care Team Providers Care Service Station Attendant Name Role Phone Name, Oscar CALI Primary Care Provider [phone] Encounter Details Date Type Department Care Team ([facility] st Contact Info) Description 01/19/2023 Telephone [facility] MEDICINE [address] [place] [phone] Name, MD Oscar [address] [place] [address] Social History Tobacco Use Types Packs/Day Years Used Date Smoking Tobacco: Every Day Cigarettes Passive Smoke Exposure: Current Smokeless Tobacco: Never Alcohol Use Standard Drinks/Week Comments Never 0 (1 standard drink = 0.6 oz pur e alcohol) Depression Answer Date Recorded Patient Health Questionnaire-9 Score 0 11/16/2022 Depression Answer Date Recorded Patient Health Questionnaire-2 Score 0 11/16/2022 Comments Unknown Sex and Gender Information Value Date Recorded Sex Assigned at Female 04/05/2022 10:14 AM EDT Legal Sex Female 10:14 AM EDT Gender Identity Female 04/05/2022 10:14 AM EDT Sexual Orientation Straight 04/05/2022 10 :14 AM EDT documented as of this encounter Miscellaneous Notes * Telephone Encounter - Magan Ernst RN - 01/21/2023 11:49 AM EDT T/C to Archie for below message. ICD codes given for insurance purpose. Archie verbally agreed and understood. * Telephone Encounter - Karina Vizcaino 01/20/2023 1:53 PM EDT Tc from archie requesting a call in regards to having ICD codes. Please contact archie at [phone] * Telephone Encounter - Karina Reina - 01/19/2023 10:16 AM EDT Tc from archie with [facility] requesting a nurse to call. States he needs updatedICD code to submit to [facility]. Please contact archie at [phone] documented in this encounter Plan of Treatment Upcoming Encounters Date Type Department Care Team (Late st Contact Info) Description 09/25/2024 3:15 PM EDT Office Visit [facility] [address] [place] [address] Name, MD Oscar [address] [place] [address] documented as of this encounter Visit Diagnoses Not on filedocumented in this encounter Additional Health Concerns Assessment Noted Time PHQ-9 Depression Total Score: 0 11/17/19 23 1:07 PM EDT documented as of this encounter Care Teams Service Station Attendant Relationship Specialty Start Date End Date NameOscar MD [address] [place] [address] PCP - General Family Medicine 08/19/15 documented as of this encounter
--- OUTSIDE RECORDS SUMMARY | 2024-08-21 16:23 | XMS_ITS | Encounter Summary ---
Author Organization [employer] Address [address] [place] [address] 7t [place] [address] Care Team Providers Care Pediatric Cardiologist Name Role Phone Name, Oscar CALI Primary Care Provider [phone] Reason for Visit * Reason Comments Med Refill Encounter Details Date Type Department Care Team ([facility] Contact Info) Description 05/31/2024 Refill [facility] MEDICINE [address] [place], [place] [phone] Name, MD Oscar [address] [place] [address] Type 2 diabetes mellitus with other specified complication, without long-term current use of insulin ([facility]) Social History Tobacco Use Types Packs/Day Years [...] Description 09/25/2024 3:15 PM EDT Office Visit [facility] MEDICINE [address] [place] [address] Name, MD Oscar [address] [place] [address] documented as of this encounter Goals Goal Patient Goal Type Associated Problems Recent Progress Patient-Stated? Author Record your blood pressure once per day Blood Pressure No Olya Higgins Blood Pressure < 140/90 Blood Pressure 147/84(2024 1:24 PM EDT) No Olya Higgins Patient will adhere to medication regimen General No Olya Higgins documented as of this encounter Visit Diagnoses Diagnosis Type 2 diabetes mellitus with other specified complication, without long-term current use of insulin ([facility]) documented in this encounter Additional Health Concerns Assessment Noted Time PHQ-9 Depression Total Score: 0 11/17/19 23 1:07 PM EDT documented as of this encounter Care Teams Pediatric Cardiologist Relationship Specialty Start Date End Date Name, MD Oscar [address] [place] [address] PCP - General Family Medicine 08/19/15 documented as of this encounter
--- OUTSIDE RECORDS SUMMARY | 2024-08-21 16:23 | XMS_ITS | Clinical Summary ---
Author Organization [employer] Address [address] [place] [address] [address] [place] [address] Care Team Providers Care C4 Planner Name Role Phone Name, Oscar CALI Primary Care Provider [phone] Allergies Active Allergy Reactions Criticality Noted Date Comments Exemestane 10/03/2017 Medications * This document contains information received from the source organization and may not represent a complete record from that organization. mirabegron ER (Myrbetriq) 25 MG 24 hr tablet Take 1 tablet by mouth at bed time. Active raloxifene (Evista) 60 MG tablet Take 1 tablet by mouth at bed time. 10/04/19 18 Active Alcohol Swabs 70 % pads Use to test blood sugar 1 times daily 100 each 06/15/19 24 Active Blood Glucose Monitoring Suppl (ONE TOUCH ULTRA 2) w/Device kit Use to test blood sugar 1 times daily 1 kit 06/15/19 24 Active fluticasone (Flonase) 50 MCG/ACT nasal sprayIndicatio ns:Asthma, unspecified asthma severity, unspecified whether complicated, unspecified whether persistent Administer 2 sprays into each nostril Once per day. Shake gently. Before first use, prime pump. After use, clean tip and replace cap. 16 g 2 10/04/19 24 025 Active amLODIPine (Norvasc) 10 MG tablet Take 1 tablet (10 mg) by mouth Once per day. 30 tablet 11 10/20/19 24 025 Active Multiple Vitamin (Multivitamin) tablet TAKE 1 TABLET BY MOUTH EVERY MORNING 260 tablet 12/30/19 24 Active Fluticasone-Sa lmeterol (Wixela Inhub) 100-50 MCG/ACT aerosol powderIndicati ons:Asthma, unspecified asthma severity, unspecified whether complicated, unspecified whether persistent Inhale 1 Inhalation 2 times daily. 60 each 3 02/28/20 24 Active albuterol 108 (90 Base) MCG/ACT inhalerIndicat ions:Asthma, unspecified asthma severity, unspecified whether complicated, unspecified whether persistent USE 2 INHALATIONS BY MOUTH EVERY 4 HOURS NEEDED FOR WHEEZING OR SHORTNESS OF BREATH 54 g 11 02/28/20 Active omeprazole (PriLOSEC) [address] capsule TAKE 1 CAPSULE BY MOUTH EVERY MORNING 90 capsule 1 04/23/20 24 Active simvastatin (Zocor) 20 MG tabletIndicati ons:High cholesterol TAKE 1 TABLET BY MOUTH EVERY EVENING 90 tablet 1 04/23/20 24 Active glucose blood (OneTouch Ultra) test stripIndicatio ns:Type 2 diabetes mellitus with other specified complication, without long-term current use of insulin ([facility]) USE TO TEST BLOOD SUGAR ONCE A DAY 100 each 11 05/29/20 24 025 Active traZODone (Desyrel) 50 MG tabletIndicati ons:Insomnia, unspecified type TAKE 1 TABLET BY MOUTH AT BEDTIME 30 tablet 1 05/29/20 24 Active OneTouch Delica Lancets 33G miscIndication s:Type 2 diabetes mellitus with other specified complication, without long-term current use of insulin ([facility]) USE TO TEST BLOOD SUGAR ONCE A DAY 100 each 11 05/29/20 24 Active liver oil-zinc oxide (Desitin) 40 % ointmentIndica tions:Candidal diaper rash APPLY TOPICALLY NEEDED FOR IRRITATION 113 g 1 05/29/20 24 Active albuterol (2.5 MG/3ML) 0.083% nebulizer solutionIndica tions:Asthma, unspecified asthma severity, unspecified whether complicated, unspecified whether persistent INHALE THE CONTENTS OF 1 VIAL VIA NEBULIZER EVERY 8 HOURS NEEDED FOR WHEEZING AND SHORTNESS OF BREATH 270 mL 10 08/01/19 25 Active predniSONE (Deltasone) 20 MG tablet Take 2 tablets (40 mg) by mouth Once per day for 5 days. 10 tablet 08/22/19 25 025 Active baclofen (Lioresal) 20 MG tablet Take 1 tablet (20 mg) by mouth 3 times daily for 10 days. 30 tablet 08/22/19 25 025 Active albuterol (2.5 MG/3ML) 0.083% nebulizer solutionIndica tions:Asthma, unspecified asthma severity, unspecified whether complicated, unspecified whether persistent Take 3 mL (2.5 mg) by nebulization every 8 (eight) hours if needed for wheezing or shortness of breath. 75 mL 3 07/28/19 24 025 Discontinued Active Problems Problem Noted Date Diagnosed Date Moderate anxiety 07/28/2023 Grief 07/28/2023 Assessment & Plan (07/30/2023 9:33 PM EST): Pt going over grieving process Reports feeling sad but Denies - to see pt today Abnormal MRI, breast 07/13/2022 Female stress incontinence 07/13/2022 Hearing problem 07/13/2022 Impaired cognition 07/13/2022 Pancreas divisum 07/13/2022 Urge incontinence of urine 07/13/2022 Vaginal dryness 07/13/2022 Type 2 diabetes mellitus 06/01/2021 Depressive disorder 01/23/2018 Assessment & Plan (07/28/2023 12:53 PM EST): PROGRESS NOTE: ID: Khadra is a 77 y.o. straight-identified cis-female with previous documented hx of Depression. Hx of MH services including OP Psychotherapy and psychopharmacology; who presents for grief . She lives with her and son. She is retired. Khadra loss a family member recently and it was unexpected. During IBH Consult Khadra presenting with depressed mood, changes in sleep difficulty falling asleep and difficulty staying asleep , change in appetite or weight reduce appetite, fatigue/loss of energy, difficulty concentrating, excessive worry/anxiety, difficulty controlling worry, restless/keyed up/On edge, easily fatigued, difficulty concentrating/Mind going blank , irritability, muscle tension, and sleep disturbance difficulty falling asleep and difficulty staying asleep , and grief sxs such as intense yearning, loneliness, denial of ,emotional pain, and detachment.; for a period of 6-12 mo, for some symptoms in the context of . PLAN: Behavioral Health Integration Plan Internal Follow up with [facility] Patient to use coping skills provided. Essential hypertension 04/12/2017 Assessment & Plan (07/30/2023 9:33 PM EST): Noted elevated BP ,pt states she took BP meds today Possible reactive with active asthma exacerbation -advised pt to monitor BP at home -pt to f w PCP in 09/2023 Low back pain 11/17/2016 Asthma exacerbation 08/19/2015 Assessment & Plan (07/30/2023 9:33 PM EST): Pt w symptoms of asthma exacerbation w active wheezing on exam , normal Ox sat, improved after albuterol NBZ tx Used flovent daily and albuterol prn -not changed to asmanex px at last apt by her PCP -checked w pharmacy and med not covered bu insurance -chem 03/2023 wnl -start arnuity ellipta 1 puff daily px instead of her previous flovent,asmanex not cover by insurance -per pharmacist -start prednisone 40 mg daily x 5 days -NBZ machine requested to nurse staff and refilled albuterol -alarm signs and sstymptoms Atypical lobular hyperplasia of breast 6 Overview (06/27/2024): 75 year-old lady with history of Atypical Lobular Hyperplasia of both Breasts. She was diagnosed back in 2002. She was enrolled on the Star trial, through [facility] research office. She was randomized to Tamoxifen. She completed back in May 2008. She developed the recurrent focal atypical hyperplasia of the right breast and was started on Raloxifene in June 2011. She had an excisional biopsy of the lump, few years ago, that revealed atypical lobular hyperplasia. At that point, it appeared that she has gained maximum benefit from the Raloxifene. So I switched her to another anti-estrogen. Aromatase inhibitor have been reported to be of benefit in this setting. There was a clinical trial using Aromasin for breast cancer prevention. Results revealed that Aromasin significantly decreased invasive breast cancers in postmenopausal women. During a median followup of 3 years, Aromasin was associated with no CVS toxic effects and only minimal changes in health related quality of life. She was agreeable to switching over, to the aromatase inhibitor, Exemustine (Aromasin.) However, she was not able to tolerate it. She was switched back to Raloxifene in May,. That has lower the risk of breast cancer development. It is helping her bones as well. She is tolerating it very well. History of cholecystectomy 08/19/2015 Hypercholesterolemia 08/19/2015 Tobacco dependence syndrome 08/19/2015 Resolved Problems Problem Noted Date Diagnosed Date Resolved Date Axillary lymphadenopathy 07/13/2022 Encounters Date Type Department Care Team Description 08/21/2024 1:20 PM EDT Office Visit [facility] [address] [place] [phone] Oscar Coffey MD Acute on chronic low back pain (Primary Dx); Radicular syndrome of left leg 08/13/2024 Telephone [facility] [address] [place] [phone] Oscar Coffey MD Durable Medical Equipment 08/01/2024 Refill [facility] [address] [phone] Padmini Hooks MD Asthma, unspecified asthma severity, unspecified whether complicated, unspecified whether persistent 07/19/2024 Refill [facility] [address] [place] [phone] Oscar Coffey MD 07/03/2024 Telephone [facility] [address] [place] [phone] Oscar Coffey MD [employer] (Nondisposable nebulizer set) 06/21/2024 Refill [facility] [address] [place] [phone] Oscar Coffey MD Insomnia, unspecified type 06/20/2024 Refill [facility] [address] [place] [phone] Oscar Coffey MD Asthma, unspecified asthma severity, unspecified whether complicated, unspecified whether persistent 06/15/2024 Telephone [facility] [address] [place] [phone] Jill James [place] DME- Nebulizer set 06/12/2024 Telephone [facility] [address] [place] [phone] Oscar Coffey MD Durable Medical Equipment (Rollator walker & incontinence supplies (bed pads, briefs, wipes, gloves)) 05/31/2024 Refill [facility] [address] [place] [address] Name, MD Oscar Type 2 diabetes mellitus with other specified complication, without long-term current use of insulin ([facility]) 05/29/2024 Refill [facility] [address] [place] [address] Name, MD Oscar Insomnia, unspecified type; Type 2 diabetes mellitus with other specified complication, without long-term current use of insulin ([facility]); Candidal diaper rash from Last 3 Months Immunizations Name Administration Dates Next Due Influenza High-dose Quadriva lent Preservative Free 03/24/2020 Influenza injectable quadriv alent IIV4 with preservative 04/06/2016 Influenza injectable quadriv alent preservative free 04/14/2022,06/10/2021 Influenza, High Dose Seasona l, Preservative Free 02/28/2024,02/23/2019,03/06/2018,02/25 Influenza, IIV3, injectable 04/23/2015,1 ,03/05/2013,03/09,02/24/2011,02/25/2010,05/11/2009 ,04/02/2008,02/27/2007 Novel [id number], preservative-free 05/11/2009 Pfizer Covid-19 Vaccine 12+ Bivalent 04/14/2022 Pneumococcal Conjugate PCV 20 02/21/2023 Pneumococcal Polysaccharide PPSV23 01/09/2013 TD (adult), 2 Lf tetanus tox oid, preservative free, adsorbed 11/22/2018 Tdap 06/13/2008 Zoster, Recombinant 01/14/2021,11/05/2020 Social History Tobacco Use Types Packs/Day Years Used Date Smoking Tobacco: Every Day Cigarettes Passive Smoke Exposure: Current Smokeless Tobacco: Never Tobacco Cessation:Ready to Q uit: Not Asked; Counseling Given: Not Answered Alcohol Use Standard Drinks/Week Comments Never 0 [...] Orientation Straight 04/05/2022 10 :14 AM EDT Last Filed Vital Signs Vital Sign Reading Time Taken Comments Blood Pressure 147/84 08/21/2024 1:24 PM EDT Pulse 69 08/21/2024 1:24 PM EDT Temperature 36.6 ??C (97.9 ??F) 08/21/2024 1:24 PM ED T Respiratory Rate 18 08/21/2024 1:24 PM EDT Oxygen Saturation 97% 08/21/2024 1:24 PM EDT Inhaled Oxygen Concentration - - Weight 71.7 kg (158 lb) 08/21/2024 1:24 PM EDT Height 152.4 cm (5') 05/16/2024 3:53 PM EST Body Mass Index 30.86 05/16/2024 3:53 PM EST Plan of Treatment Upcoming Encounters Date Type Department Care Team (Late st Contact Info) Description 09/25/2024 3:15 PM EDT Office Visit [facility] [address] [place] [address] Name, MD Oscar [facility] [place] [address] Health Maintenance Due Date Last Done Comments Diabetes: Foot Exam 10/28/1957 Alcohol/Substance Use Screening 1959 Hepatitis C Screening 10/28/1965 RSV Patients and Patients Aged 60 years or older (1 - 1-dose 75+ series) 10/28/2022 Depression Screening 11/17/2023 11/16/2022, 11/17/19 23 SDOH Screening 11/17/2023 11/16/2022 COVID-19 Vaccine ( season) 2024 04/14/2022, 11/03/2021, 04/24/2021, Additional history exists Diabetes: Hemoglobin A1C 08/27/2024 024, 06/21/2023, 11/16/2022, Additional history exists Mammogram 01/05/2025 01/06/2024, 12/2022, 12/10/2022, Additional history exists Diabetes: Urine Protein Screening 03/06/2025 03/06/2024, 03/15/2023, 07/23/2021, Additional history exists Lipid Panel 03/06/2025 03/06/2024, 03/06, 07/23/2021, Additional history exists Tobacco Screening 05/16/2025 05/16/2024 Eye Exam 07/04/2025 07/04/2023, 06/07, 07/04/2023, Additional history exists DTaP/Tdap/Td Vaccines (3 - Td or Tdap) 11/22/2028 11/22/2018, 06/13/2008 Colonoscopy Discontinued 12/24/2019 Colorectal Cancer Screening Discontinued Zoster Vaccines Completed 01/14/2021, 11/05/2020 Pneumococcal Vaccine: 50+ Years Completed 02/21/2023, 01/09/2013 Influenza Vaccine Completed 02/28/2024, , 06/10/2021, Additional history exists CT Colonography Discontinued FIT DNA/Cologuard Discontinued FIT Discontinued FOBT Discontinued HIB Vaccines Aged Out No longer eligi ble based on patient's age to complete this topic HPV Vaccines Aged Out No longer eligi ble based on patient's age to complete this topic Hepatitis A Vaccines Aged Out No long er eligible based on patient's age to complete this topic Hepatitis B Vaccines Aged Out No long er eligible based on patient's age to complete this topic IPV Vaccines Aged Out No longer eligi ble based on patient's age to complete this topic Meningococcal Vaccine Aged Out No reggie mauro eligible based on patient's age to complete this topic RSV under 20 months Aged Out No longe r eligible based on patient's age to complete this topic Rotavirus Vaccines Aged Out No longer eligible based on patient's age to complete this topic Sigmoidoscopy Discontinued Goals Goal Patient Goal Type Associated Problems Recent Progress Patient-Stated? Author Record your blood pressure once per day Blood Pressure No Olya Higgins Blood Pressure < 140/90 Blood Pressure 147/84(2024 1:24 PM EDT) No Olya Higgins Patient will adhere to medication regimen General No Olya Higgins Procedures Procedure Name Priority Date/Time Associated Diagnosis Comments XR LUMBAR SPINE COMPLETE 4+ VIEWS Routine 08/21/2024 1:51 PM EDT Acute on chronic low back pain Radicular syndrome of left leg ALBUMIN, RANDOM URINE W/CREATININE Routine 03/06/2024 9:20 AM EDT Type 2 diabetes mellitus with other specified complication, without long-term current use of insulin (CMS/HCC) LIPID PANEL, STANDARD Routine 03/06/2024 9:20 AM EDT Type 2 diabetes mellitus with other specified complication, without long-term current use of insulin (CMS/HCC) POCT GLYCATED HEMOGLOBIN, TOTAL Routine 02/28/2024 3:19 PM EDT Type 2 diabetes mellitus with other specified complication, without long-term current use of insulin (CMS/HCC) BI MAMMOGRAM SCREENING TOMOSYNTHESIS BILATERAL Routine 01/06/2024 12:15 PM EDT HM COLONOSCOPY Routine 12/24/2019 12:31 PM EDT from Last 3 Months or Most Recently Relevant to Health Maintenance Results * XR Lumbar Spine Complete 4+ Views (08/21/2024 1:51 PM EDT) Anatomical Region Laterality Modality Spine, L-spine Radiographic Kayleigh ging 08/21/2024 1:51 PM EDT Narrative 08/21/2024 2:24 PM EDT ?[facility] ?[address] ?[place] [address] ?XRay Report ? Signed ? Patient: Childers Galan,Khadra ?MR#: [id number] ?? [id number] ? : 1945 ?Acct:[id number] ? Age/Sex: 78 / F ?ADM Date: 08/21/24 ? Loc: HO.HHCX ? Attending Dr: Oscar Coffey MD ? Ordering Physician: Oscar Coffey MD ?? Date of Service: 08/21/24 ?? Procedure(s): XR lumbar spine 4V min ?? Accession Number(s): [id number] ? cc: Oscar Coffey MD ? EXAMINATION: [...] ??Ethan Alejandre MD ??08/21/2024 02:19 PM EDT ?? RP ? Dictated By: ?Ethan Alejandre MD ? Signed By: ?<Electronically signed by Ethan Alejandre MD in OV> ?08/21/24 1419 ? DD/ 1351 ? TD/TT: 08/21/24 1400 ? Strategy Manager: ? Procedure Note Donotuseinterpreter, Image - 08/21/2024 [facility] [address] [place] [address] XRay Report Signed Patient: Jacki Neal#: [id number] : 8Acct:[id number] Age/Sex: 78 / FADM Date: 08/21/24 [facility]: Oscar Coffey MD Ordering Physician: Oscar Coffey MD Date of Service: 08/21/24 Procedure(s): XR lumbar spine 4V min Accession Number(s): [id number] cc: Oscar Coffey MD EXAMINATION: XR LUMBAR [...] 08/21/24 1419 DD/ 1351 TD/TT: 08/21/24 1400 Strategy Manager: Oscar Coffey MD IMG XR PROCEDURES Final Result * (ABNORMAL) Albumin, Random Urine W/Creatinine (03/06/2024 9:20 AM EDT) Creatinine, Urine 127.23 mg/dL [facility] Microalbumin Urine 49.0 mg/L H [facility] Microalbum Creatinine Ratio Ur 38.5(H) <30 ug/mg cr [facility] Comment:Albumin/Creatinine R atio Reference Ranges: Normal: < 30 ug/mg creatinine Microalbuminuria: 30 - 300 ug/mg creatinineClinical Albuminuria: > 300 ug/mg creatinine Urine (Urine, Random) 03/06/2024 9:20 AM EDT 03/06/2024 10:56 AM EDT us Oscar Name MD LAB URINE ORDERABLES Final Resul t [facility] [address] [place] [phone] * (ABNORMAL) Lipid Panel, Standard (03/06/2024 9:20 AM EDT) Triglycerides 159(H) <150 mg/dL [facility] Comment:Desirable Triglyceri de: less than 150 mg/dLBorderline High Triglyceride 150-199 mg/dLHigh Triglyceride: 200-499 mg/dLVery High Triglyceride: greater than or equal to 5OO mg/dL Cholesterol 204(H) <200 mg/dL [facility] Comment:Desirable Cholestero l: less than 200 mg/dLBorderline High Cholesterol: 200-239 mg/dLHigh Cholesterol: greater than 239 mg/dL LDL Cholesterol Calculated 131(H) <100 mg/dL [facility] Comment:Desirable LDL: less than 100 mg/dLNear Optimal/Above Optimal LDL: 110- 129 mg/dLBorderline High LDL: 130-159 mg/dLHigh LDL: 160-189 mg/dLVery High LDL: greater than or equal to 190 mg/dL HDL Cholesterol 42 >40 mg/dL [facility] Comment:Desirable HDL: great er than 40 mg/dL Note: This HDL assay may give artificially low results in patients with liver disease. Blood Venous blood specimen / Unknown 03/06/2024 9:20 AM EDT 03/06/2024 11:05 AM EDT us Oscar Coffey MD LAB BLOOD ORDERABLES Final Resul t [facility] [address] [place] [address] [phone] * (ABNORMAL) POCT HGB A1C (02/28/2024 3:19 PM EDT) Hemoglobin A1C 6.4(A) 4.0 - 6.0 % QC Media Lot # [id number] Lot# Expiration Date Blood 02/28/2024 3:19 PM EDT us Oscar Coffey MD POINT OF CARE TEST ENTER/EDIT OR DERABLES Final Result * BI Mammogram Screening Tomosynthesis Bilateral (01/06/2024 12:15 PM EDT) Anatomical Region Laterality Modality Breast Bilateral Mammography 01/06/2024 12:1 5 PM EDT Narrative 02/06/2024 11:40 PM EDT ? [facility] [place] ? [address] ?[place] [address] ? Mammography Report ? Signed ? Patient: Khadra Neal ?MR#: [id number] ?? [id number] ? : 1945 ?Acct:[id number] ? Age/Sex: 78 / F ?ADM Date: 01/06/24 ? Loc: HO.MAMMO ? Attending : Oscar Name MD ? Ordering Physician: Name,Oscar MD ?Results: 2Benign Fi ?? ndings ? Date of Service: 01/06/24 ?Follow Up: 1 Year From Orig ?? inal Mammogram ? Procedure(s): MM tomosynthesis screening BI ?? Accession Number(s): [id number] ? cc: Name,Oscar CALI ? EXAMINATION: ?? MM SCREENING DIGITAL BREAST TOMOSYNTHESIS, BILATERAL ? CLINICAL INFORMATION: ? Screening. Asymptomatic. ? The patient is status post left lumpectomy and status post right breast ?? surgery showing LCIS. ?? COMPARISON: ?? Mammography: This study is compared with prior exams dating back to ? 2020. ? TECHNIQUE: ?? Digital breast tomosynthesis is performed in both the craniocaudal and ?? mediolateral oblique views along with computer-aided detection (CAD). ? Synthesized 2D images are generated from the tomosynthesis. ? FINDINGS: ?? The breasts are heterogeneously dense, which may obscure small masses ?? (ACR BI-RADS breast composition Category c). ? There are no significant masses, abnormal calcifications, or other ?? abnormalities. ?? Postsurgical changes are present in the superior aspect of the left ?? breast. There are bilateral benign calcifications present. ? MM/MM tomosynthesis screening BI ?? IMPRESSION: ?? No mammographic evidence of malignancy. ? ASSESSMENT: ? BI-RADS BI-RADS 2 - Benign Findings ? RECOMMENDATION: ?? Routine annual mammography screening. ? 1 year F/U ? This examination should not preclude the clinical evaluation of a ?? suspicious palpable abnormality. ? This patient's information was entered into a reminder system with a ?? target due date for their next mammogram. ? Electronically signed by: ??Lita Lewis MD ??02/06/2024 11:37 PM EDT RP ? Dictated By: ?Lita Lewis MD ? Signed By: ?<Electronically signed by Lita Lewis MD in OV> ? 02/06/24 2337 ? DD/ 1215 ? TD/TT: 01/06/24 1228 ? Strategy Manager: ? Procedure Note Donotuseinterpreter, Image - 02/06/2024 [place] [facility] [address] [place] [address] Mammography Report Signed Patient: Hunter NealR#: [id number] : 8Acct:[id number] Age/Sex: 78 / FADM Date: 01/06/24 Loc: HO.MAMMO Attending Dr: Oscar Coffey MD Ordering Physician: Oscar Coffey MDResults: 2Benign Fi ndings Date of Service: 01/06/24Follow Up: 1 Year From Orig ina Mammogram Procedure(s): MM tomosynthesis screening BI Accession Number(s): [id number] cc: Oscar Coffey MD EXAMINATION: MM SCREENING DIGITAL BREAST TOMOSYNTHESIS, BILATERAL CLINICAL INFORMATION: Screening. Asymptomatic. The patient is status post left lumpectomy and status post right breast surgery showing LCIS. COMPARISON: Mammography: This study is compared with prior exams dating back to 2020. TECHNIQUE: Digital breast tomosynthesis is performed in both the craniocaudal and mediolateral oblique views along with computer-aided detection (CAD). Synthesized 2D images are generated from the tomosynthesis. FINDINGS: The breasts are heterogeneously dense, which may obscure small masses (ACR BI-RADS breast composition Category c). There are no significant masses, abnormal calcifications, or other abnormalities. Postsurgical changes are present in the superior aspect of the left breast. There are bilateral benign calcifications present. MM/MM tomosynthesis screening BI IMPRESSION: No mammographic evidence of malignancy. ASSESSMENT: BI-RADS BI-RADS 2 - Benign Findings RECOMMENDATION: Routine annual mammography screening. 1 year F/U This examination should not preclude the clinical evaluation of a suspicious palpable abnormality. This patient's information was entered into a reminder system with a target due date for their next mammogram. Electronically signed by: Lita Lewis MD 02/06/2024 11:37 PM EDT RP Dictated By: Lita Lewis MD Signed By: <Electronically signed by Lita Lewis MD in OV> 02/06/24 3257 DD/ 1215 TD/TT: 01/06/24 1228 Strategy Manager: us Oscar Name MD LORA BI PROCEDURES Final Result * Hm Colonoscopy (12/24/2019 12:31 PM EDT) Colonoscopy Normal Normal Ghislaine Carroll - 12/24/2019 12:31 PM EDT Repeat colonoscopy in one year us Historical Provider HEALTH MAINTENANCE Final Result from Last 3 Months or Most Recently Relevant to Health Maintenance Insurance [id number] DUAL COMPLETE * Guarantor: Khadra Neal Account Type Relation to Patient Date of Phone Billing Address Personal/Family Self [place], [place] * Guarantor: Khadra Neal Account Type Relation to Patient Date of Phone Billing Address Personal/Family Self [place], [place] * Guarantor: Khadra Neal Account Type Relation to Patient Date of Phone Billing Address Personal/Family Self [place], [place] Care Teams C4 Planner Relationship Specialty Start Date End Date Name, MD Oscar [address] [place] [phone] PCP - General Family Medicine 08/19/15
--- OUTSIDE RECORDS SUMMARY | 2024-08-21 16:23 | XMS_ITS | Encounter Summary ---
Author Organization [employer] Address [address] [place] [address] [address] [place] [address] Care Team Providers Care Warble Saw Operator Name Role Phone Name, Oscar CALI Primary Care Provider [phone] Encounter Details Date Type Department Care Team ([facility] Contact Info) Description 11/17/2022 Abstract [facility] [address] [place] [id number] Name, MD Oscar [address] [place] [id number] Social History Tobacco Use Types Packs/Day Years [...] Orientation Straight 04/05/2022 10 :14 AM EDT COVID-19 Exposure Response Date Recorded In the last 10 days, have yo u been in contact with someone who was confirmed or suspected to have Coronavirus/COVID-19? No / Unsure 11/16/2022 12:41 PM EDT documented as of this encounter Plan of Treatment Upcoming Encounters Date Type Department Care Team ([facility] Contact Info) Description 09/25/2024 3:15 PM EDT Office Visit [facility] [address] [place] [address] [phone] Name, MD Oscar [address] [place] [address] documented as of this encounter Procedures Procedure Name Priority Date/Time Associated Diagnosis Comments HM COLONOSCOPY Routine 12/24/2019 12:31 PM EDT documented in this encounter Results * Hm Colonoscopy (12/24/2019 12:31 PM EDT) Colonoscopy Normal Normal Narrative Ghislaine Barrera - 12/24/2019 12:31 PM EDT Repeat colonoscopy in one year us Historical Provider HEALTH MAINTENANCE Final Result documented in this encounter Visit Diagnoses Not on filedocumented in this encounter Additional Health Concerns Assessment Noted Time PHQ-9 Depression Total Score: 0 11/17/19 23 1:07 PM EDT documented as of this encounter Care Teams Warble Saw Operator Relationship Specialty Start Date End Date Name, MD Oscar [address] [place] [address] PCP - General Family Medicine 08/19/15 documented as of this encounter
--- OUTSIDE RECORDS SUMMARY | 2024-08-21 16:23 | XMS_ITS | Encounter Summary ---
Author Organization [employer] Address [address] [place] [address] 7[address] [place] [address] Care Team Providers Care Teacher Ballet Name Role Phone Name, Oscar CALI Primary Care Provider [phone] Reason for Visit * Reason Comments Med Refill Encounter Details Date Type Department Care Team ([facility] Contact Info) Description 06/20/2024 Refill [facility] [address] [place], [place] [phone] Name, MD Oscar [address] [place] [address] Asthma, unspecified asthma severity, unspecified whether complicated, [...] Description 09/25/2024 3:15 PM EDT Office Visit [facility] [address] [place] [address] NameOscar MD [address] [place] [address] documented as of this encounter Goals Goal [...] documented as of this encounter Care Teams Teacher Ballet Relationship Specialty Start Date End Date NameOscar MD [address] [place] [id number] PCP - General Family Medicine 08/19/15 documented as of this encounter
== END 2024-08-21 13:51 | disposition home or self-care (01) ==
LOC: HO.HHCX 13:50
PROVIDERS: Visit Provider Internal Medicine Geriatric Medicine
DX: M54.50 Low back pain, unspecified (principal); M54.10 Radiculopathy, site unspecified; G89.29 Other chronic pain
CPT/HCPCS: 72110

== ENCOUNTER → 2024-08-21 13:51 | Outpatient (BNV) | payer OTHER, SELFPAY | PROVIDERS: Visit Provider Radiology Diagnostic Radiology | DX: M85.88 Other specified disorders of bone density and structure, other site (principal); M51.362 Other intervertebral disc degeneration, lumbar region with discogenic back pain and lower extremity pain | CPT/HCPCS: 72110 ==

== ENCOUNTER 2024-09-27 08:55 | Outpatient (AMB) | payer OTHER, SELFPAY ==
[2024-09-27 08:58] VITALS: BP 120/80; PULSE 76
--- NOTE | 2024-09-27 08:58 | MHC.OFFVIS ---
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 Intake Note: New patient with ekg dx chest pain c/o chest pain twice 2 months ago Shingle Catcher Required: No Allergies aspirin [ASPIRIN] Allergy (Unknown, Verified 06/15/24 15:06) hives, rash Penicillins [PENICILLINS] Allergy (Unknown, Verified 06/15/24 15:06) hives Medication List - Last Reconciled 09/27/24 by Des Ferrell MD albuterol sulfate mg inhalation Q8H PRN amlodipine 5 mg PO DAILY cyclobenzaprine 5 mg (1/2 x 10 mg) PO BEDTIME PRN estradiol 0.01%(0.1mg/gram) pea-sized to urethra daily; hydrochlorothiazide 25 mg PO DAILY mirabegron ER (Myrbetriq) 25 mg PO DAILY 90 days ondansetron 1 tab PO Q6H PRN pantoprazole 1 tab PO DAILY raloxifene 60 mg PO DAILY simvastatin 1 tab PO BEDTIME HPI Comments Details: Thank you for referring Khadra in cardiology consultation today for chest pain. She is a 78-year-old woman with recently diagnose diabetes started on medication although she is not very aware of all her medications she is on, hypertension, hyperlipidemia, chronic smoking since age of 16 years. About couple months ago while she was sleeping she got episode of chest discomfort she describes as central retrosternal chest pressure. This lasted for less than couple of minutes. This was associated with rapid heartbeat. Patient had another episode few days later. Since then she has had no recurrent episodes. She got concerned about it and mentioned to you about these episodes. She is very limited activity level due to her back pain. She walks with a walker. She has not had any recurrent exertional symptoms. Denies any worsening shortness of breath, orthopnea, PND. No lightheadedness, syncope. [facility] Medical History GERD (gastroesophageal reflux disease) Asthma Hypercholesterolemia Hypertension Surgical History History of local excision of skin lesion (03/22/19) Hx of right breast biopsy (02/2016) History of right breast biopsy (09/26/13) History of breast lump/mass excision (2002) History of tonsillectomy History of bilateral carpal tunnel release History of cervical spinal surgery History of tubal ligation History of laparoscopic cholecystectomy (08/06/08) Hx of endoscopy History of colonoscopy Family History Father Family history of due to heart problem at 50 years of age or younger History of cardiovascular disorder Mother Hx of cancer of lung Social History Household Members: Spouse Housing: House Are you a primary team primary care physician to a significant other at home: No Do you presently have visiting nurse or other home services: No Alcohol intake: current Alcohol intake frequency: does not drink Patient Tobacco Use Status: Current everyday Tobacco user service: No Current occupational status: unemployed Review of Systems Const Denies chills, Denies daytime sleepiness, Denies fatigue, Denies fever(s), Denies frequent falls, Denies poor appetite, Denies snoring, Denies stops breathing during sleep, Denies weakness, Denies weight gain and Denies weight loss Eyes Denies loss of vision ENT Denies dizziness and Denies hearing loss Card Denies chest pain, Denies claudication, Denies leg edema, Denies lightheadedness, Denies palpitations, Denies dyspnea, Denies dyspnea on exertion and Denies orthopnea Resp Denies cough, Denies excessive phlegm production, Denies dyspnea, Denies dyspnea on exertion, Denies snoring and Denies wheezing GI Denies abdominal pain, Denies hematochezia, Denies change in bowel habits, Denies nausea and Denies vomiting Denies urinary frequency and Denies dysuria Musc Denies arthralgias, Denies muscle weakness, Denies numbness and Denies other (frequent falls) Skin/Breast Denies nail changes and Denies rash Neuro Denies Abnormal speech present, Denies dizziness, Denies frequent falls, Denies loss of vision, Denies memory loss, Denies numbness and Denies weakness Psych Denies depression and Denies memory loss Endo Denies fatigue and Denies palpitations Tereso/Lymph Reports easy bruising and Reports other (anemia) Aller/Immun Denies wheezing Physical Exam Vital Signs: Last Vital Signs Pulse 76 09/27/24 08:58 BP 120/80 09/27/24 08:58 BMI result Body Mass Index 30.0 Const General: cooperative, comfortable, no acute distress, alert and awake Nutritional Appearance: overweight Orientation/consciousness: patient oriented x3 Limitations: ambulation with walker HEENT Head: Yes normocephalic and Yes atraumatic Neck Neck: Yes trachea midline, Yes supple and Yes no JVD Carotids: no bruits Resp Effort & Inspection: normal respiratory effort Auscultation: clear to auscultation bilaterally Cardio Jugular venous distension: no JVD Rate: regular rate Rhythm: regular rhythm Heart sounds: S1 normal heart sound present, S2 normal heart sound present, no click, no gallops, no murmurs and no rubs GI Auscultation: normal bowel sounds Skin General skin exam: no rashes or lesions noted Neuro General: patient oriented x3 and no focal motor deficits Speech: No Abnormal speech present Extrem General: Yes no clubbing, cyanosis or edema Office Procedures EKG Details: EKG shows normal sinus rhythm nonspecific ST changes 95896-[id number], Complete Assessment & Plan Assessment & Plan (1) Atypical chest pain: Code(s): R07.89 - Other chest pain Category: Medical Plan: Atypical chest pain in this elderly woman with significant risk factors including age, hypertension, diabetes, hyperlipidemia as well as smoking. She was very limited functional capacity. She had 2 episodes of chest discomfort retrosternal in nature. Myocardial ischemia needs to be ruled out. Will suggest a vasodilating myocardial perfusion imaging due to her inability to walk on a treadmill. Will also suggest an echocardiogram to evaluate LV systolic and diastolic function to evaluate for hypertensive heart disease. These tests will be scheduled in near future. In terms of risk factor modification I have advised to continue current blood pressure regimen. Blood pressure is well optimized. Aggressive management of diabetes goal hemoglobin A1c less than 7%. I would change her simvastatin therapy to either atorvastatin or rosuvastatin to target goal LDL less than 70 mg/dL. Complete smoking cessation was advised. She is interested. Will consider nicotine patches to start. She is interested and will pursue your mortgage loan counselor. Will follow up in the clinic in 3 months time, sooner p.r.n.. Thank you for allowing me to partake in her care Coding Level of Care Code New Pt Level 4 (82996) Complex EM visit Add On G2211 Diagnoses Atypical chest pain R07.89 CPT Codes EKG - CPT: 27357-[id number], Complete ([id number])
--- OUTSIDE RECORDS SUMMARY | 2024-09-27 09:31 | XMS_ITS | Encounter Summary ---
Author Organization [employer] Address [address] [facility] [address] [place] [address] Care Team Providers Care Freight Checker Name Role Phone Name, Oscar CALI Primary Care Provider [phone] Encounter Details Date Type Department Care Team (Latest Contact Info) Description 09/25/2024 Travel Social History Tobacco Use Types Packs/Day Years Used Date Smoking Tobacco: Every Day Cigarettes Passive Smoke Exposure: Current Smokeless Tobacco: Never Alcohol Use Standard Drinks/Week Comments Never 0 (1 standard drink = 0.6 oz pur e alcohol) Depression Answer Date Recorded Patient Health Questionnaire-9 Score 0 11/16/2022 Housing Stability Answer Date Recorded What is your housing situation today? I have khanhdvaid tse 03/23/[address] you [...] Care Team (Late st Contact Info) Description 10/30/2024 1:45 PM EDT Office Visit [facility] [address] [place] [address] Name, MD Oscar [address] [place] [address] documented as of this encounter Goals Goal Patient Goal Type Associated Problems Recent Progress Patient-Stated? Author Record your blood pressure once per day Blood Pressure No Olya Higgins Blood Pressure < 140/90 Blood Pressure 130/69(2024 3:17 PM EDT) No Olya Higgins Patient will adhere to medication regimen General No Olya Higgins documented as of this encounter Visit Diagnoses Not on filedocumented in this encounter Additional Health Concerns Assessment Noted Time PHQ-9 Depression Total Score: 0 11/17/19 23 1:07 PM EDT documented as of this encounter Care Teams Freight Checker Relationship Specialty Start Date End Date NameOscar MD [address] [place] [id number] PCP - General Family Medicine 08/19/15 documented as of this encounter
--- OUTSIDE RECORDS SUMMARY | 2024-09-27 09:31 | XMS_ITS | Clinical Summary ---
Author Organization [employer] Address [address] [place] [address] 7t [place] [address] Care Team Providers Care Breeding Technician Name Role Phone Name, Oscar CALI Primary Care Provider [phone] Allergies Active Allergy Reactions Criticality Noted Date Comments Exemestane 10/03/2017 Metformin 09/25/2024 Unspecified side effect Medications * This document contains information received from the source organization and may not represent a complete record from that organization. mirabegron ER (Myrbetriq) 25 MG 24 hr tablet Take 1 tablet by mouth at bed time. Active raloxifene (Evista) 60 MG tablet Take 1 tablet by mouth at bed time. 8 Active Alcohol Swabs 70 % pads Use to test blood sugar 1 times daily 100 each 4 Active Blood Glucose Monitoring Suppl (ONE TOUCH ULTRA 2) w/Device kit Use to test blood sugar 1 times daily 1 kit 4 Active fluticasone (Flonase) 50 MCG/ACT nasal sprayIndication s:Asthma, unspecified asthma severity, unspecified whether complicated, unspecified whether persistent Administer 2 sprays into each nostril Once per day. Shake gently. Before first use, prime pump. After use, clean tip and replace cap. 16 g 2 4 025 Active amLODIPine (Norvasc) 10 MG tablet Take 1 tablet (10 mg) by mouth Once per day. 30 tablet 11 4 025 Active Multiple Vitamin (Multivitamin) tablet TAKE 1 TABLET BY MOUTH EVERY MORNING 260 tablet 4 Active Fluticasone-Abdelrahman meterol (Wixela Inhub) 100-50 MCG/ACT aerosol powderIndicatio ns:Asthma, unspecified asthma severity, unspecified whether complicated, unspecified whether persistent Inhale 1 Inhalation 2 times daily. 60 each 3 4 Active albuterol 108 (90 Base) MCG/ACT inhalerIndicati ons:Asthma, unspecified asthma severity, unspecified whether complicated, unspecified whether persistent USE 2 INHALATIONS BY MOUTH EVERY 4 HOURS NEEDED FOR WHEEZING OR SHORTNESS OF BREATH 54 g 11 4 Active omeprazole (PriLOSEC) [address] capsule TAKE 1 CAPSULE BY MOUTH EVERY MORNING 90 capsule 1 4 Active glucose blood (CoolSystemsuch Ultra) test stripIndication s:Type 2 diabetes mellitus with other specified complication, without long-term current use of insulin ([facility]) USE TO TEST BLOOD SUGAR ONCE A DAY 100 each 4 025 Active traZODone (Desyrel) 50 MG tabletIndicatio ns:Insomnia, unspecified type TAKE 1 TABLET BY MOUTH AT BEDTIME 30 tablet 1 4 Active OneTouch Delica Lancets 33G miscIndications :Type 2 diabetes mellitus with other specified complication, without long-term current use of insulin ([facility]) USE TO TEST BLOOD SUGAR ONCE A DAY 100 each 4 Active liver oil-zinc oxide (Desitin) 40 % ointmentIndicat ions:Candidal diaper rash APPLY TOPICALLY NEEDED FOR IRRITATION 113 g 1 4 Active albuterol (2.5 MG/3ML) 0.083% nebulizer solutionIndicat ions:Asthma, unspecified asthma severity, unspecified whether complicated, unspecified whether persistent INHALE THE CONTENTS OF 1 VIAL VIA NEBULIZER EVERY 8 HOURS NEEDED FOR WHEEZING AND SHORTNESS OF BREATH 270 mL 10 5 Active baclofen (Lioresal) 20 MG tablet Take 1 tablet (20 mg) by mouth 3 times daily for 10 days. 30 tablet 5 Active simvastatin (Zocor) 40 MG tablet Take 1 tablet (40 mg) by mouth at bedtime. 30 tablet 11 5 026 Active empagliflozin (Jardiance) 10 MG Take 1 tablet (10 mg) by mouth Once per day. 30 tablet 5 026 Active simvastatin (Zocor) 20 MG tabletIndicatio ns:High cholesterol TAKE 1 TABLET BY MOUTH EVERY EVENING 90 tablet 1 4 025 Discontin ued(Dose adjustmen t) Active Problems Problem Noted Date Diagnosed Date Moderate anxiety 07/28/2023 Grief 07/28/2023 Assessment & Plan (07/30/2023 9:33 PM EST): Pt going over grieving process Reports feeling sad but Denies SI - to see pt today Abnormal MRI, [...] Health Integration Plan Internal Follow up with [facility] Patient to use coping skills provided. Essential [...] was enrolled on the Star trial, through [facility] research office. She was randomized to Tamoxifen. [...] Encounters Date Type Department Care Team Description 09/25/2024 3:15 PM EDT Office Visit [facility] [address] [place] [phone] Oscar Coffey MD Type 2 diabetes mellitus with other specified complication, without long-term current use of insulin ([facility]) (Primary Dx); Essential hypertension; Chronic bilateral low back pain with left-sided sciatica; Tobacco dependence syndrome 09/25/2024 Travel 09/19/2024 Telephone [facility] [address] [place] [phone] Jill James MA chart prep 08/21/2024 1:20 PM EDT Office Visit [facility] [address] [place] [phone] Oscar Coffey MD Acute on chronic low back pain (Primary Dx); Radicular syndrome of left leg 08/13/2024 Telephone [facility] [address] [place] [phone] Oscar Coffey MD Durable Medical Equipment 08/01/2024 Refill [facility] [address] [place] [phone] Padmini Hooks MD Asthma, unspecified asthma severity, unspecified whether complicated, unspecified whether persistent 07/19/2024 Refill [facility] [address] [place] [phone] Oscar Coffey MD 07/03/2024 Telephone [facility] [address] [place] [phone] Oscar Coffey MD [employer] (Nondisposable nebulizer set) from Last 3 Months Immunizations Name Administration Dates Next Due Influenza High-dose Quadriva lent Preservative Free 03/24/2020 Influenza injectable quadriv alent IIV4 with preservative 04/06/2016 Influenza injectable quadriv alent preservative free 04/14/2022,06/10/2021 Influenza, High Dose Seasona l, Preservative Free 02/28/2024,02/23/2019,03/06/2018,02/25 Influenza, IIV3, injectable 04/23/2015,1 ,03/05/2013,03/09,02/24/2011,02/25/2010,05/11/2009 ,04/02/2008,02/27/2007 Novel [id number], preservative-free 05/11/2009 Pfizer Covid-19 Vaccine 12+ Bivalent [...] Sign Reading Time Taken Comments Blood Pressure 130/69 09/25/2024 3:17 PM EDT Pulse 95 09/25/2024 3:17 PM EDT Temperature 37.1 ??C (98.8 ??F) 09/25/2024 3:17 PM ED T Respiratory Rate 12 09/25/2024 3:17 PM EDT Oxygen Saturation 97% 09/25/2024 3:17 PM EDT Inhaled Oxygen Concentration - - Weight 71.9 kg (158 lb 9.6 oz) 09/25/2024 3:17 P M EDT Height 152.4 cm (5') 05/16/2024 3:53 PM EST Body Mass Index 30.97 05/16/2024 3:53 PM EST Plan of Treatment Upcoming Encounters Date Type Department Care Team (Late st Contact Info) Description 10/30/2024 1:45 PM EDT Office Visit [facility] [address] [place] [phone] Name, MD Oscar [address] [place] [address] Health Maintenance Due Date Last Done Comments Diabetes: Foot Exam 10/28/1957 Alcohol/Substance Use Screening 1959 Hepatitis C Screening 10/28/1965 RSV Patients and Patients Aged 60 years or older (1 - 1-dose 75+ series) 10/28/2022 Depression Screening 11/17/2023 11/16/2022, 11/17/19 23 SDOH Screening 11/17/2023 11/16/2022 COVID-19 Vaccine ( season) 2024 04/14/2022, 11/03/2021, 04/24/2021, Additional history exists Mammogram 01/05/2025 01/06/2024, 07/0 12/2022, 12/10/2022, Additional history exists Diabetes: Urine Protein Screening 03/06/2025 03/06/2024, 03/15/2023, 07/23/2021, Additional history exists Lipid Panel 03/06/2025 03/06/2024, 03/06, 07/23/2021, Additional history exists Diabetes: Hemoglobin A1C 03/27/2025 025, 02/28/2024, 06/21/2023, Additional history exists Eye Exam 07/04/2025 07/04/2023, 06/07, 07/04/2023, Additional history exists Tobacco Screening 09/25/2025 09/25/2024 DTaP/Tdap/Td Vaccines (3 - Td or Tdap) [...] blood pressure once per day Blood Pressure Olya Liriano Blood Pressure < 140/90 Blood Pressure 130/69(2024 3:17 PM EDT) No Cardaropoli, Dobson Patient will adhere to medication regimen General Olya Liriano Procedures Procedure Name Priority Date/Time Associated Diagnosis Comments POCT GLYCATED HEMOGLOBIN, TOTAL Routine 09/25/2024 3:18 PM EDT Type 2 diabetes mellitus with other specified complication, without long-term current use of insulin ([facility]) POCT GLUCOSE Routine 09/25/2024 3:18 PM EDT Type 2 diabetes mellitus with other specified complication, without long-term current use of insulin ([facility]) XR LUMBAR SPINE COMPLETE 4+ VIEWS Routine 08/21/2024 1:51 PM EDT Acute on chronic low back pain Radicular syndrome of left leg ALBUMIN, RANDOM URINE W/CREATININE Routine 03/06/2024 9:20 AM EDT Type 2 diabetes mellitus with other specified complication, without long-term current use of insulin ([facility]) LIPID PANEL, STANDARD Routine 03/06/2024 9:20 AM EDT Type 2 diabetes mellitus with other specified complication, without long-term current use of insulin ([facility]) BI MAMMOGRAM SCREENING TOMOSYNTHESIS BILATERAL Routine 01/06/2024 12:15 PM EDT HM COLONOSCOPY Routine 12/24/2019 12:31 PM EDT from Last 3 Months or Most Recently Relevant to Health Maintenance Results * (ABNORMAL) POCT HGB A1C (09/25/2024 3:18 PM EDT) Hemoglobin A1C 6.6(A) 4.0 - 6.0 % QC Media Lot # [id number] Lot# Expiration Date ,42 Blood 09/25/2024 3:18 PM EDT us Oscar Name POINT OF CARE TEST ENTER/EDIT OR DERABLES Final Result * POCT Glucose (09/25/2024 3:18 PM EDT) Glucose Blood, POC 175 60 - 200 mg/dL QC Media Lot # [id number] Lot# Expiration Date [id number] Blood Capillary blood specimen / Unknown 09/25/2024 3:18 PM EDT us Oscar Name MD POINT OF CARE TEST ENTER/EDIT OR DERABLES Final Result * XR Lumbar Spine Complete 4+ Views (08/21/2024 1:51 PM EDT) Anatomical Region Laterality Modality Spine, L-spine Radiographic Kayleigh ging 08/21/2024 1:51 PM EDT Narrative 08/21/2024 2:24 PM EDT ?[facility] ?[address] ?[place] [address] ?XRay Report ? Signed ? Patient: Khadra Neal ?MR#: [id number] ?? [id number] ? : 1945 ?Acct:[id number] ? Age/Sex: 78 / F ?ADM Date: 08/21/24 ? Loc: HO.HHCX ? Attending Dr: Oscar Coffey MD ? Ordering Physician: Oscar Coffey MD ?? Date of Service: 08/21/24 ?? Procedure(s): XR lumbar spine 4V min ?? Accession Number(s): [id number] ? cc: Oscar Coffey MD ? EXAMINATION: [...] DD/ 1351 ? TD/TT: 08/21/24 1400 ? Granite Fabricator: ? Procedure Note Donselenainterpreter, Image - 08/21/[address] [address] XRay Report Signed Patient: Jacki Neal#: [id number] : 8Acct:[id number] Age/Sex: 78 / FADM Date: 08/21/24 Loc: HO.HHCX Attending Dr: Oscar Coffey MD Ordering Physician: Oscar Coffey MD Date of Service: 08/21/24 Procedure(s): XR lumbar spine 4V min Accession Number(s): [id number] cc: Oscar Coffey MD EXAMINATION: XR LUMBAR [...] 08/21/24 1419 DD/ 1351 TD/TT: 08/21/24 1400 Granite Fabricator: us Oscar Coffey MD IMG XR PROCEDURES Final Result * (ABNORMAL) Albumin, Random Urine W/Creatinine (03/06/2024 9:20 AM EDT) Creatinine, Urine 127.23 mg/dL [facility] Microalbumin Urine 49.0 mg/L H [facility] Microalbum Creatinine Ratio Ur 38.5(H) <30 ug/mg cr [facility] Comment:Albumin/Creatinine R atio Reference Ranges: Normal: < 30 ug/mg creatinine Microalbuminuria: 30 - 300 ug/mg creatinineClinical Albuminuria: > 300 ug/mg creatinine Urine (Urine, Random) 03/06/2024 9:20 AM EDT 03/06/2024 10:56 AM EDT us Oscar Coffey MD LAB URINE ORDERABLES Final Resul t [facility] [address] [place] [phone] * (ABNORMAL) Lipid Panel, Standard (03/06/2024 9:20 AM EDT) Triglycerides 159(H) <150 mg/dL [facility] Comment:Desirable Triglyceri de: less than 150 mg/dLBorderline High Triglyceride 150-199 mg/dLHigh Triglyceride: 200-499 mg/dLVery High Triglyceride: greater than or equal to 5OO mg/dL Cholesterol 204(H) <200 mg/dL [facility] Comment:Desirable Cholestero l: less than 200 mg/dLBorderline High Cholesterol: 200-239 mg/dLHigh Cholesterol: greater than 239 mg/dL LDL Cholesterol Calculated 131(H) <100 mg/dL [facility] Comment:Desirable LDL: less than 100 mg/dLNear Optimal/Above Optimal LDL: 110- 129 mg/dLBorderline High LDL: 130-159 mg/dLHigh LDL: 160-189 mg/dLVery High LDL: greater than or equal to 190 mg/dL HDL Cholesterol 42 >40 mg/dL [facility] Comment:Desirable HDL: great er than 40 mg/dL Note: This HDL assay may give artificially low results in patients with liver disease. Blood Venous blood specimen / Unknown 03/06/2024 9:20 AM EDT 03/06/2024 11:05 AM EDT us Oscar Name LAB BLOOD ORDERABLES Final Resul t [facility] [address] [place] [address] [phone] * BI Mammogram Screening Tomosynthesis Bilateral (01/06/2024 12:15 PM EDT) Anatomical Region Laterality Modality Breast Bilateral Mammography 01/06/2024 12:1 5 PM EDT Narrative 02/06/2024 11:40 PM EDT ? [facility] ? [address] ?[place] [address] ? Mammography Report ? Signed ? Patient: Childers Galan,Khadra ?MR#: [id number] ? : 1945 ?Acct:[id number] ? Age/Sex: 78 / F ?ADM Date: 01/06/24 ? Loc: HO.MAMMO ? Attending Dr: Oscar Name MD ? Ordering Physician: Name,Oscar MD ?Results: 2Benign Fi ?? ndings ? Date of Service: 01/06/24 ?Follow Up: 1 Year From Orig ?? inal Mammogram ? Procedure(s): MM tomosynthesis screening BI ?? Accession Number(s): [id number] ? cc: Name,Oscar CALI ? EXAMINATION: ?? [...] DD/ 1215 ? TD/TT: 01/06/24 1228 ? Granite Fabricator: ? Procedure Note Donotuseinterpreter, Image - [facility]/06/[facility] [address] [place] [address] Mammography Report Signed Patient: Jacki Neal#: [id number] : 8Acct:[id number] Age/Sex: 78 / FADM Date: 01/06/24 Loc: HO.MAMMO Attending Dr: Oscar Coffey MD Ordering Physician: Oscar Coffey MDResults: 2Benign Fi ndings Date of Service: 01/06/24Follow Up: 1 Year From Orig inal Mammogram Procedure(s): MM tomosynthesis screening BI Accession Number(s): [id number] cc: Oscar Coffey MD EXAMINATION: MM SCREENING [...] Lita Lewis MD 02/06/2024 11:37 PM EDT Dictated By: Lita Lewis MD Signed By: <Electronically signed by Lita Lewis MD in OV> 02/06/24 6150 DD/ 1215 TD/TT: 01/06/24 1228 Granite Fabricator: Oscar Name MD LORA BI PROCEDURES Final Result * Hm Colonoscopy (12/24/2019 12:31 PM EDT) Colonoscopy Normal Normal Narrative Ghislaine Barrera - 12/24/2019 12:31 PM EDT Repeat colonoscopy in one year Historical Provider HEALTH MAINTENANCE Final Result from Last 3 Months or Most Recently Relevant to Health Maintenance Insurance DUAL COMPLETE Care Teams Breeding Technician Relationship Specialty Start Date End Date Name, MD Oscar [address] [place] [phone] PCP - General Family Medicine 08/19/15
--- OUTSIDE RECORDS SUMMARY | 2024-09-27 09:31 | XMS_ITS | Encounter Summary ---
Author Organization [employer] Address [address] [place] [address] [place] [address] Care Team Providers Care Chief Catalyst Operator Name Role Phone NameOscar MD Primary Care Provider [phone] Encounter Details Date Type Department Care Team ([facility] Contact Info) Description 11/05/2022 [facility] [employer] Information Management [address] [place] [address] Oscar Coffey MD [address] [place], [place] [phone] Social History Tobacco Use Types Packs/Day Years [...] Upcoming Encounters Date Type Department Care Team ([facility] Contact Info) Description 10/30/2024 1:45 PM EDT Office Visit [facility] [address] [place] [address] Oscar Coffey MD [address] [place], [place] [phone] documented as of this encounter Visit Diagnoses Not on filedocumented in this encounter Care Teams Chief Catalyst Operator Relationship Specialty Start Date End Date NameOscar MD [address] [place] [phone] PCP - General Family Medicine 08/19/15 documented as of this encounter
--- OUTSIDE RECORDS SUMMARY | 2024-09-27 09:31 | XMS_ITS | Encounter Summary ---
Author Organization [employer] Address [address] [place] [address] 7t [place] [address] Care Team Providers Care Academic Advisement Director Name Role Phone Name, Oscar CALI Primary Care Provider [phone] Reason for Visit * Reason Comments Med Refill Encounter Details Date Type Department Care Team ([facility] Contact Info) Description 05/31/2024 Refill [facility] [address] [place], [place] [phone] Name, MD Oscar [address] [place] [address] Type 2 diabetes mellitus with other specified complication, without long-term current use of insulin ([facility]) Social History Tobacco Use Types Packs/Day Years [...] Description 10/30/2024 1:45 PM EDT Office Visit [facility] [address] [place], [place] [phone] Name, MD Oscar [address] [place] [address] documented as of this encounter Goals Goal [...] complication, without long-term current use of insulin ([facility]) documented in this encounter Additional Health Concerns Assessment Noted Time PHQ-9 Depression Total Score: 0 11/17/19 23 1:07 PM EDT documented as of this encounter Care Teams Academic Advisement Director Relationship Specialty Start Date End Date Name, MD Oscar [address] [place] [address] PCP - General Family Medicine 08/19/15 documented as of this encounter
--- OUTSIDE RECORDS SUMMARY | 2024-09-27 09:31 | XMS_ITS | Encounter Summary ---
Author Organization [employer] Address [address] [place] [address] [address] [place] [address] Care Team Providers Care Turbine Subassembler Name Role Phone NameOscar MD Primary Care Provider [phone] Encounter Details Date Type Department Care Team (Late st Contact Info) Description 05/20/2022 Orders Only [facility] [address] [place] [phone] Moon Ruggiero LPN Social History Tobacco Use [...] Description 10/30/2024 1:45 PM EDT Office Visit [facility] [address] [place] [phone] NameOscar MD [address] [place] [address] documented as of this encounter Visit Diagnoses Not on filedocumented in this encounter Care Teams Turbine Subassembler Relationship Specialty Start Date End Date Oscar Coffey MD [address] [place] [phone] PCP - General Family Medicine 08/19/15 documented as of this encounter
--- OUTSIDE RECORDS SUMMARY | 2024-09-27 09:31 | XMS_ITS | Encounter Summary ---
Author Organization [employer] Address [address] [facility] [address]t [place] [address] Care Team Providers Care Wafer Fabricator Name Role Phone Name, Oscar CALI Primary Care Provider [phone] Encounter Details Date Type Department Care Team ([facility] Contact Info) Description 11/02/2023 Telephone [facility] [address] [place], [place] [phone] Name, MD Oscar [address] [place] [address] Social History Tobacco Use Types Packs/Day Years [...] Description 10/30/2024 1:45 PM EDT Office Visit [facility] [address] [place] [address] Name, MD Oscar [address] [place] [address] documented as of this encounter Goals Goal [...] documented as of this encounter Care Teams Wafer Fabricator Relationship Specialty Start Date End Date Name, MD Oscar [address] [place] [address] PCP - General Family Medicine 08/19/15 documented as of this encounter
--- OUTSIDE RECORDS SUMMARY | 2024-09-27 09:31 | XMS_ITS | Encounter Summary ---
Author Organization [employer] Address [address] [place] [address] 7t [place] [address] Care Team Providers Care Senior Hris Analyst Name Role Phone Name, Oscar CALI Primary Care Provider [phone] Reason for Visit * Reason Comments Med Refill Encounter Details Date Type Department Care Team ([facility] Contact Info) Description 06/20/2024 Refill [facility] [address] [place], [place] [phone] Name, MD Oscar [address] [place] [address] Asthma, unspecified asthma severity, unspecified whether complicated, [...] Description 10/30/2024 1:45 PM EDT Office Visit [facility] [address] [place] [address] NameOscar MD [address] [place] [address] documented as of this encounter Goals Goal [...] documented as of this encounter Care Teams Senior Hris Analyst Relationship Specialty Start Date End Date NameOscar MD [address] [place] [phone] PCP - General Family Medicine 08/19/15 documented as of this encounter
--- OUTSIDE RECORDS SUMMARY | 2024-09-27 09:31 | XMS_ITS | Encounter Summary ---
Author Organization [employer] Address [address] [place] [address] 7t [place] [address] Care Team Providers Care Dental Equipment Installer And Servicer Name Role Phone Name, Oscar CALI Primary Care Provider [phone] Encounter Details Date Type Department Care Team ([facility] Contact Info) Description 11/17/2022 Abstract [facility] [address] [place] [phone] Name, MD Oscar [address] [place] [phone] Social History Tobacco Use Types Packs/Day Years [...] Upcoming Encounters Date Type Department Care Team ([facility] Contact Info) Description 10/30/2024 1:45 PM EDT Office Visit [facility] [address] [place] [address] [phone] Name, MD Oscar [address] [place] [address] documented as of this encounter Procedures Procedure [...] documented as of this encounter Care Teams Dental Equipment Installer And Servicer Relationship Specialty Start Date End Date Name, MD Oscar [address] [place] [address] PCP - General Family Medicine 08/19/15 documented as of this encounter
--- OUTSIDE RECORDS SUMMARY | 2024-09-27 09:31 | XMS_ITS ---
Author Name Agarwalmarcela TSEEdda MS. Tee Wyatt Address [address] [place] [address] Phone [phone] [facility] Care Team Providers Care Bi Report Developer Name Role Phone Sheri Agarwal Unavailable [phone] Reason for Referral Not Available Allergies, adverse [...] a MEAL 2021-09-15 No Data Available Nystatin [id number] UNIT/GM Crm APPLY TO THE AFFECTED AREA(S) [...] BY TANNER TH AT BEDTIME 2024-02-28 2024-07-16 Needcheck 2 w/Device Kit USE DIR ECTED TO [...] Active 2022-03-12 N/A Other problems related to pa dical facilities and other health care Active 2024-07-17 N/A Other problems related to pa dical facilities and other health care Resolved 2023-11-29 2024-07-17 Fall in home, sequela Active 2023-11-29 N/A Type 2 diabetes mellitus wit h other diabetic ophthalmic complicationCataractGlaucoma Active 2022-03-12 N/A Overactive bladder Active 2022-03-12 N/A COPD (chronic obstructive pulmonary disease) Active 2022-03-12 N/A Encounters Encounters Type Facility Date of Service Diagnosis/Complaint Pain Assessment - Pain Documented on a Pain Scale (1125F) [facility] [place] Pain Assessment - Pain Documented on a Pain Scale (1125F) [facility] [place] Pain Assessment - Pain Documented on a Pain Scale (1125F) [facility] [place] Pain Assessment - Pain Documented on a Pain Scale (1125F) [facility] [place] Pain Assessment - Pain Documented on a Pain Scale (1125F) [facility] [place] Pain Assessment - Pain Documented on a Pain Scale (1125F) [facility] [place] Pain Assessment - Pain Documented on a Pain Scale (1125F) [facility] [place] Pain Assessment - Pain Documented on a Pain Scale (1125F) [facility] [place] Pain Assessment - Pain Documented on a Pain Scale (1125F) [facility] [place] Malignant neoplasm of unspec ified site of left female breastType 2 diabetes mellitus with diabetic cataractType 2 diabetes mellitus with other diabetic ophthalmic complicationUnspecified cataractUnspecified glaucomaChronic obstructive pulmonary disease, unspecifiedOveractive bladder RN, CN or CP time with patient by phone; use with 1111F, BP, A1c or other CPTII codes [facility] [place] Encounter for other specifie d aftercare RN, CN or CP time with patient by phone; use with 1111F, BP, A1c or other CPTII codes [facility] [place] Estab. patient 30-39min; chronic exacerbation, 2 stable chronic or 1 acute illness add add modifier 95 for video, (do not use for phone, instead use 23329-71) [facility] [place]20[place] Overactive bladderType 2 risa betes mellitus with other diabetic ophthalmic complicationUnspecified cataractUnspecified glaucomaMalignant neoplasm of unspecified site of left female breastEndocrine disorder, unspecifiedChronic obstructive pulmonary disease, unspecifiedImmunodeficiency due to conditions classified elsewhere Estab. patient 30-39min; chronic exacerbation, 2 stable chronic or 1 acute illness add add modifier 95 for video, (do not use for phone, instead use 82060-58) [facility] [place] Estab. patient 30-39min; chronic exacerbation, 2 stable chronic or 1 acute illness add add modifier 95 for video, (do not use for phone, instead use 21172-96) [facility] [place] Estab. patient 30-39min; chronic exacerbation, 2 stable chronic or 1 acute illness add add modifier 95 for video, (do not use for phone, instead use 08775-57) [facility] [place] Estab. patient 30-39min; chronic exacerbation, 2 stable chronic or 1 acute illness add add modifier 95 for video, (do not use for phone, instead use 70078-70) [facility] [place] Estab. patient 30-39min; chronic exacerbation, 2 stable chronic or 1 acute illness add add modifier 95 for video, (do not use for phone, instead use 71449-68) [facility] [place] Estab. patient 30-39min; chronic exacerbation, 2 stable chronic or 1 acute illness add add modifier 95 for video, (do not use for phone, instead use 89022-75) [facility] [place] Estab. patient 30-39min; chronic exacerbation, 2 stable chronic or 1 acute illness add add modifier 95 for video, (do not use for phone, instead use 34488-47) [facility] [place] Estab. patient 30-39min; chronic exacerbation, 2 stable chronic or 1 acute illness add add modifier 95 for video, (do not use for phone, instead use 98168-95) [facility] [place] Estab. patient 30-39min; chronic exacerbation, 2 stable chronic or 1 acute illness add add modifier 95 for video, (do not use for phone, instead use 86872-38) [facility] [place]2023 Type 2 diabetes mellitus wit h other diabetic ophthalmic complicationType 2 diabetes mellitus with diabetic cataractOther problems related to medical facilities and other health careOveractive bladderMalignant neoplasm of unspecified site of left female breastEndocrine disorder, unspecifiedChronic obstructive pulmonary disease, unspecifiedUnspecified asthma, uncomplicatedImmunodeficiency due to conditions classified elsewhereUnsteadiness on feetUnspecified fall, sequelaUnsp place in [facility] non-[facility] (private[facility] residence as place Estab. patient 30-39min; chronic exacerbation, 2 stable chronic or 1 acute illness add add modifier 95 for video, (do not use for phone, instead use 14961-29) [facility] [place] Estab. patient 30-39min; chronic exacerbation, 2 stable chronic or 1 acute illness add add modifier 95 for video, (do not use for phone, instead use 92889-36) [facility] [place] Estab. patient 30-39min; chronic exacerbation, 2 stable chronic or 1 acute illness add add modifier 95 for video, (do not use for phone, instead use 80530-80) [facility] [place] Estab. patient 30-39min; chronic exacerbation, 2 stable chronic or 1 acute illness add add modifier 95 for video, (do not use for phone, instead use 04291-24) [facility] [place] Estab. patient 30-39min; chronic exacerbation, 2 stable chronic or 1 acute illness add add modifier 95 for video, (do not use for phone, instead use 88371-36) [facility] [place] Estab. patient 30-39min; chronic exacerbation, 2 stable chronic or 1 acute illness add add modifier 95 for video, (do not use for phone, instead use 18030-21) [facility] [place] Estab. patient 30-39min; chronic exacerbation, 2 stable chronic or 1 acute illness add add modifier 95 for video, (do not use for phone, instead use 79226-12) [facility] [place] Estab. patient 30-39min; chronic exacerbation, 2 stable chronic or 1 acute illness add add modifier 95 for video, (do not use for phone, instead use 50507-45) [facility] [place] Estab. patient 30-39min; chronic exacerbation, 2 stable chronic or 1 acute illness add add modifier 95 for video, (do not use for phone, instead use 77682-22) [facility] [place] Estab. patient 20-29min; 1 stable chronic or 2 minor; add add modifier 95 for video, modifier 93 for phone [facility] [place] 07[place]2024 Type 2 diabetes mellitus wit h other diabetic ophthalmic complicationGlaucoma in diseases classified elsewhereChronic obstructive pulmonary disease, unspecifiedUnspecified cataractOveractive bladderPersonal history of malignant neoplasm of breastEndocrine disorder, unspecifiedImmunodeficiency due to conditions classified elsewhereUnsp place in [facility] ([facility]) residence as placeUnsteadiness on feetUnspecified fall, sequelaOther problems related to medical facilities and other health care Estab. patient 20-29min; 1 stable chronic or 2 minor; add add modifier 95 for video, modifier 93 for phone [facility] [place] Estab. patient 20-29min; 1 stable chronic [...] phone [facility] [place]2024 Overactive bladderOther spec ified chronic obstructive pulmonary disease Estab. patient 10-29min; 1 minor problem; add add modifier 95 for video, modifier 93 for phone [facility] [place] 08/01/2024 Vital Signs Date of Collection Vitals 2022-03-18 [...] Current Smoking Status Current every day smoker 2024-09-27 Sex Female Gender identity Woman History of [...] (do not use for phone, instead use 37602-34) 75474 2022-03-18 No Data Available No Data Availa ble RN, CN or CP time with patient by phone; use with 1111F, BP, A1c or other CPTII codes 70111 2022-07-08 No Data Available No Data Avai lable Medications prescribed in hospital were reviewed and reconciled against what they were taking prior to admission during today's visit. (1111F) 1111F 2022-07-08 No Data Available No Data Availa ble Estab. patient 30-39min; chronic exacerbation, 2 stable chronic or 1 acute illness add add modifier 95 for video, (do not use for phone, instead use 69615-73) 46902 2022-09-02 No Data Available No Data Availa [...] (do not use for phone, instead use 43402-98) 13603 2023-11-29 No Data Available No Data Availa [...] 95 for video, modifier 93 for phone 90239 2024-07-16 No Data Available No Data Availa [...] 95 for video, modifier 93 for phone 22052 2024-08-01 No Data Available No Data Availa ble Medication List Documented (1159F) 1159F 2024-08-01 No Data Available No Data Roya ilable Functional Status Functional Category Effective Dates Cognition Status: Oriented to Person, Pl setevan and Time 2022-03-18 Falls in last 6 Months: Yes - 2024-07-17 ADL Eating: Independent; Amb ulation: Needs assistive of walker; Dressing: Some Help Needed; Bathing: Some Help Needed; Toileting: Independent/needs help 2024-07-17 CITY DISPATCH SUPERVISOR daily 2022-03-18 Cane 2023-11-29 Fall in last 6 mo 2023-11-29 Instrumental Activities of Daily Living (4): 2024-07-17 Medication: Independent 2024-07-17 Shopping: Needs Assistance 2024-07-17 Meal Preparation Needs Assistance 07-17 Laundry: Needs Assistance 2024-07-17 Housework/Cleaning: Needs Assistance 10-05-10 Driving/Using Public Transportation: Nee ds Assistance 2024-07-17 Handling Finances: Independent 2024-07-07 [...] modifier 95Continue to see PCP. [facility] any acute or disease [...] GABY RN advise member to [facility] to inform of MD/ specialist recommendations?:YesPlanned date for follow-up with member: scheduled [facility] on 07/28/21 1200-1300Patient Education provided: Advised member to call CB 27/12 w/ any concerns/questions, verbal understanding[facility] Plan for Member: Complete [facility] 07/28/22 as [...] modifier 95Continue to see PCP. [facility] or disease education needs that may arise.RX: Myrbetriq, estradiol, vagisilWears a pad for protectionRX: Metforminpt reports last a1c was under 6, hr told her she no longer has to [...] fever, or leg swelling call us at [phone]. We are here to help.RX: Myrbetriq, estradiol, vagisilWears a pad for protectionRX: raloxifeneFollows Oncology every 6 moRX: albuterol inhaler and SymbicortHas nebulizer Pulse ox 98% - checks dailyFollows PCP every 6 monthsimmunodeficiency d/t conditions classified elsewhere based on member has a documented diagnosis that includes malignant neoplasm of female breast, monitor closely for s/s infections/p fall Gait unsteady R26.81, W19.XXXSRequesting lightweight ekzoik05, 152 2024-07-16 08:46:27 Functional Status As sessed [...] present (1126F)Continue to see PCP. Follow-up with [facility] as needed for any acute or disease education needs that may arise.07/16/24 RX: MetforminGlucometer Checks [id number] 6.4 on 02/28/24 per outside careRoutine diabetic Eye ExamsRX: Myrbetriq, estradiol, vagisilWears a pad for protection 07/16/24Continues to have urinary frequency and OAB symptoms. Stopped Myrbetriq and started Oxybutynin - Advised on sx to monitor for. Scheduled f/[facility] 2 weeks to evaluate.RX: raloxifeneFollows Oncology [...] infections/p fall Gait unsteady R26.81, W19.XXXSRequesting lightweight dahjqw09, 152Patient reporting on 07/16/24 she is unable [...] for phoneContinue to see PCP. [facility] any acute or disease education needs that may arise 27/12.RX: Myrbetriq, estradiol, vagisilWears a pad for protection 07/16/24Continues to have urinary frequency and OAB symptoms. Stopped Myrbetriq and started Oxybutynin - Advised on sx to monitor for. Scheduled f/up with [facility] in 2 weeks to evaluate. 08/01/24 was [...] the ER. 2022-03-18 Discussed how to [facility] via phone or tablet. 2022-09-02 1. Remember to keep all appointments with your PCP.2. Take all medication on time and try to eat healthy3. Call if you have questions or concerns before you go to the ER.4. Discussed how to contact [facility] via phone or tablet. 2024-07-16 Continue taking [...]
--- OUTSIDE RECORDS SUMMARY | 2024-09-27 09:31 | XMS_ITS | Encounter Summary ---
Author Organization [employer] Address [address] [place] [address] Care Team Providers Care Motor Vehicle Operator Road Supervisor Name Role Phone Name, Oscar CALI Primary Care Provider [phone] Reason for Visit * Reason Onset Date Comments Triage 09/03/2022 Encounter Details Date Type Department Care Team ([facility] st Contact Info) Description 09/03/2022 Telephone [facility] [address] [place] [address] [phone] Name, MD Oscar [address] [place] [address] Triage Social History Tobacco Use Types Packs/Day [...] PCP team nurses. Pt advised to seek PAC today or Tuesday if sx worsen or [...] accepted this outcome Please contact pt at [phone] documented in this encounter Plan of Treatment Upcoming Encounters Date Type Department Care Team (Late st Contact Info) Description 10/30/2024 1:45 PM EDT Office Visit [facility] [address] [place] [phone] Name, MD Oscar [address] [place] [address] documented as of this encounter Visit Diagnoses Diagnosis Injury of left knee, subsequent encounter- Primary documented in this encounter Care Teams Motor Vehicle Operator Road Supervisor Relationship Specialty Start Date End Date NameOscar MD [address] [place] [phone] PCP - General Family Medicine 08/19/15 documented as of this encounter
--- OUTSIDE RECORDS SUMMARY | 2024-09-27 09:31 | XMS_ITS | Encounter Summary ---
Author Organization [employer] Address [address] [place] [address] [address] [place] [address] Care Team Providers Care Slubber Tender Name Role Phone Name, Oscar CALI Primary Care Provider [phone] Reason for Visit * Reason Comments Med Refill Encounter Details Date Type Department Care Team ([facility] Contact Info) Description 06/21/2024 Refill [facility] [address] [place], [place] [phone] Name, MD Oscar [address] [place] [address] Insomnia, unspecified type Social History Tobacco Use [...] Description 10/30/2024 1:45 PM EDT Office Visit [facility] [address] [place] [phone] NameOscar MD [address] [place] [phone] documented as of this encounter Goals Goal [...] documented as of this encounter Care Teams Slubber Tender Relationship Specialty Start Date End Date Name, MD Oscar [address] [place] [phone] PCP - General Family Medicine 08/19/15 documented as of this encounter
--- OUTSIDE RECORDS SUMMARY | 2024-09-27 09:31 | XMS_ITS | Encounter Summary ---
Author Organization [employer] Address [address] [place] [address] [address] [place] [address] Care Team Providers Care Food Service Manager Name Role Phone Name, Oscar CALI Primary Care Provider [phone] Reason for Visit * Reason Comments Diabetes Encounter Details Date Type Department Care Team ([facility] Contact Info) Description 09/25/2024 3:15 PM EDT Office Visit [facility] [address] [place] [address] [phone] Name, MD Oscar [address] [place] [address] Type 2 diabetes mellitus with other specified complication, without long-term current use of insulin ([facility]) (Primary Dx); Essential hypertension; Chronic bilateral low back pain with left-sided sciatica; Tobacco dependence syndrome Social History Tobacco Use Types Packs/Day Years [...] oz) 09/25/2024 3:17 P M EDT Height - - Body Mass Index 30.97 05/16/2024 3:53 PM EST documented in this encounter Progress Notes * Oscar Coffey MD - 09/25/2024 3:15 PM EDT Subjective Patient ID: Khadra Galan is a 78 y.o. female who presents for Diabetes. Patient comes for a follow-up visit. She feels well. The last time I saw her was for a sick visit for low back pain that has resolved. We discussed results of lumbar spine x-ray that was consistent with DJD. Her BP is well-controlled today. We discussed the results of her most recent fasting blood work. She assures me she is using her statin regularly but her fill history is consistent with noncompliance with statin use. At the moment she is not using any medication for diabetes. She is reluctant to use metformin because of GI side effects. She does not check her blood sugar regularly. Review of Systems Constitutional: Negative for chills and fever. HENT: Negative for sore throat. Respiratory: Negative for cough, shortness of breath and wheezing. Cardiovascular: Negative for chest pain, palpitations and leg swelling. Gastrointestinal: Negative for abdominal pain. Visit Vitals BP 130/69 (BP Location: Left arm, Patient Position: Sitting, BP Cuff Size: Adult) Pulse 95 Temp 98.8 ??F (37.1 ??C) (Temporal) Resp 12 Wt 158 lb 9.6 oz (71.9 kg) SpO2 97% BMI 30.97 kg/m?? Smoking Status Every Day BSA 1.74 m?? Objective Physical Exam Constitutional: Appearance: Normal appearance. Cardiovascular: Rate and Rhythm: Normal rate and regular rhythm. Heart sounds: No murmur heard. No gallop. Pulmonary: Effort: Pulmonary effort is normal. No respiratory distress. Breath sounds: Normal breath sounds. No wheezing. Musculoskeletal: Right lower leg: No edema. Left lower leg: No edema. Neurological: Mental Status: She is alert. Lab Results Component Value Date HGBA1C 6.6 (A) 09/25/2024 HGBA1C 6.4 (A) 02/28/2024 HGBA1C 6.2 (A) 06/21/2023 HGBA1C 6.2 (A) 11/16/2022 HGBA1C 6.4 (H) 06/12/2020 Latest Reference Range & Units 03/06/24 09:20 03/06/24 09:26 Glucose 60 - 115 mg/dL 120 (H) Urea Nitrogen (BUN) 9 - 16 mg/dL 11 Creatinine, Serum 0.5 - 1.4 mg/dL 0.76 Sodium 135 - 145 mmol/L 146 (H) Potassium 3.3 - 5.1 mmol/L 3.6 Chloride 96 - 108 mmol/L 110 (H) Carbon Dioxide 22 - 29 mmol/L 26 Calcium 8.4 - 10.2 mg/dL 9.7 Albumin Level 3.5 - 5.0 g/dL 4.5 Bilirubin, Total 0.0 - 1.0 mg/dL 0.5 AST 5 - 31 U/L 23 ALT 0 - 31 U/L 20 Anion Gap 12 - 20 14 Total Protein 6.5 - 8.0 g/dL 7.5 Cholesterol <200 mg/dL 204 (H) HDL Cholesterol >40 mg/dL 42 LDL Cholesterol Calculated <100 mg/dL 131 (H) Triglycerides <150 mg/dL 159 (H) Red Blood Count 4.20 - 5.50 X10*6/uL 4.53 Hemoglobin 12.0 - 16.0 g/dl 13.4 Hematocrit 37.0 - 47.0 % 40.6 Mean Corpuscular Volume 80.0 - 98.0 fL 89.6 Mean Corpuscular Hemoglobin 27.0 - 33.0 pg 29.6 Mean Corpuscular HGB Conc 31.0 - 35.0 g/dl 33.0 Red Cell Distribution Width 11.0 - 16.0 % 14.9 Platelet Count 160 - 400 X10*3/uL 236 Eosinophils Percent Auto 0 - 4 % 2.3 Lymphocytes Absolute Auto 1.2 - 4.9 X10*3/uL 1.9 Basophils Absolute Auto 0.0 - 0.2 X10*3/uL 0.0 Monocytes Absolute Auto 0.1 - 1.2 X10*3/uL 0.5 Neutrophils Absolute Auto 2.0 - 8.3 x10*3/uL 3.1 Neutrophils Percent Auto 45 - 73 % 54.7 Basophils Percent Auto 0 - 2 % 0.5 Eosinophils Absolute Auto 0.0 - 0.4 X10*3/uL 0.1 Lymphocytes Percent Auto 20 - 40 % 33.2 Monocytes Percent Auto 2 - 11 % 8.9 Imm Gran Abs Auto 0.00 - 0.03 X10*3/uL 0.02 Imm Gran Pct Auto 0.0 - 0.4 % 0.4 Microalbumin Urine mg/L 49.0 Alkaline Phosphatase 39 - 117 U/L 49 Creatinine, Urine mg/dL 127.23 Estimated Glomerular Filt Rate >60 Mean Platelet Volume 9.4 - 12.3 fL 10.8 Microalbum Creatinine Ratio Ur <30 ug/mg cr 38.5 (H) NRBC Abs Auto 0.0 - 0.012 X10*3/uL 0.000 NRBC Pct Auto 0.0 - 0.2 /100WBC 0.0 White Blood Count 4.8 - 10.8 X10*3/uL 5.6 (H): Data is abnormally high [facility] [address] [place] [address] XRay Report Signed Patient: Khadra Neal MR#: [id number] : 1945 Acct:[id number] Age/Sex: 78 / F ADM Date: 08/21/24 Loc: HO.HHCX Attending Dr: Oscar Coffey MD Ordering Physician: Oscar Coffey MD Date of Service: 08/21/24 Procedure(s): XR lumbar spine 4V min Accession Number(s): [id number] cc: Oscar Coffey MD EXAMINATION: XR LUMBAR [...] Ethan Alejandre MD 08/21/2024 02:19 PM EDT RP Assessment/Plan Diagnoses and all orders for this visit: Type 2 diabetes mellitus with other specified complication, without long-term current use of insulin ([facility]) Comments: I recommended to avoid sweets and soda Walk after meals She is reluctant to use metformin because of side effects of the medication in the past. I recommended starting Jardiance for renal and cardiovascular protection and blood sugar control. We discussed the benefits and risks of the medication. I strongly encouraged to stop the medication and let us know if she has any urinary symptoms. I asked her to use her glucose meter at home. Follow-up 6 to 8 weeks with her glucose meter Today I also recommended to double her dose of statin and we discussed the importance of using the medication daily for prevention of heart attacks or strokes. Orders: - POCT Glucose - POCT HGB A1C Essential hypertension Comments: Well-controlled today. Continue current dose of amlodipine. Chronic bilateral low back pain with left-sided sciatica Comments: Resolved. She is encouraged to walk daily. She may use acetaminophen up to 3 times a day as needed. Tobacco dependence syndrome Comments: Patient still smoking 1 or 2 cigarettes a day. She is not ready to quit smoking yet. Other orders - simvastatin (Zocor) 40 MG tablet; Take 1 tablet (40 mg) by mouth at bedtime. - empagliflozin (Jardiance) 10 MG; Take 1 tablet (10 mg) by mouth Once per day. documented in this encounter Plan of Treatment Upcoming Encounters Date Type Department Care Team (Late st Contact Info) Description 10/30/2024 1:45 PM EDT Office Visit [facility] [address] [place] [address] [phone] Oscar Coffey MD [address] [place] [address] [phone] documented as of this encounter Goals Goal Patient Goal Type Associated Problems Recent Progress Patient-Stated? Author Record your blood pressure once per day Blood Pressure No Olya Higgins Blood Pressure < 140/90 Blood Pressure 130/69(2024 3:17 PM EDT) No Olya Higgins Patient will adhere to medication regimen General No Olya Higgins documented as of this encounter Procedures Procedure Name Priority Date/Time Associated Diagnosis Comments POCT GLYCATED HEMOGLOBIN, TOTAL Routine 09/25/2024 3:18 PM EDT Type 2 diabetes mellitus with other specified complication, without long-term current use of insulin ([facility]) POCT GLUCOSE Routine 09/25/2024 3:18 PM EDT Type 2 diabetes mellitus with other specified complication, without long-term current use of insulin ([facility]) documented in this encounter Results * (ABNORMAL) POCT HGB A1C (09/25/2024 3:18 PM EDT) Hemoglobin A1C 6.6(A) 4.0 - 6.0 % QC Media Lot # [id number] Lot# Expiration Date [id number] Blood 09/25/2024 3:18 PM EDT us Oscar Coffey MD POINT OF CARE TEST ENTER/EDIT OR DERABLES Final Result * POCT Glucose (09/25/2024 3:18 PM EDT) Glucose Blood, POC 175 60 - 200 mg/dL QC Media Lot # [id number] Lot# Expiration Date 82,625 Blood Capillary blood specimen / Unknown 09/25/2024 3:18 PM EDT us Oscar Coffey MD POINT OF CARE TEST ENTER/EDIT OR DERABLES Final Result documented in this encounter Visit Diagnoses Diagnosis Type 2 diabetes mellitus with other specified complication, without long-term current use of insulin ([facility])- Primary Essential hypertension Unspecified essential hypertension Chronic bilateral low back pain with left-sided sciatica Tobacco dependence syndrome Tobacco use disorder documented in this encounter Additional Health Concerns Assessment Noted Time PHQ-9 Depression Total Score: 0 11/17/19 23 1:07 PM EDT documented as of this encounter Care Teams Food Service Manager Relationship Specialty Start Date End Date Name, MD Oscar [address] [place] [address] PCP - General Family Medicine 08/19/15 documented as of this encounter
--- OUTSIDE RECORDS SUMMARY | 2024-09-27 09:31 | XMS_ITS | Encounter Summary ---
Author Organization [employer] Address [address] [place] [address] 7[address] [place] [address] Care Team Providers Care Support Staff Name Role Phone Name, Oscar CALI Primary Care Provider [phone] Encounter Details Date Type Department Care Team ([facility] st Contact Info) Description 01/19/2023 Telephone [facility] [address] [place] [address] [phone] Name, MD Oscar [address] [place] [address] Social History Tobacco Use Types Packs/Day Years [...] having ICD codes. Please contact archie at [phone] * Telephone Encounter - Karina Reina - 01/19/2023 10:16 AM EDT Tc from archie with [facility] requesting a nurse to call. States he needs updatedICD code to submit to [facility]. Please contact archie at [phone] documented in this encounter Plan of Treatment Upcoming Encounters Date Type Department Care Team (Late st Contact Info) Description 10/30/2024 1:45 PM EDT Office Visit [facility] [address] [place] [address] Name, MD Oscar [address] [place] [address] documented as of this encounter Visit Diagnoses Not on filedocumented in this encounter Additional Health Concerns Assessment Noted Time PHQ-9 Depression Total Score: 0 11/17/19 23 1:07 PM EDT documented as of this encounter Care Teams Support Staff Relationship Specialty Start Date End Date NameOscar MD [address] [place] [address] PCP - General Family Medicine 08/19/15 documented as of this encounter
--- OUTSIDE RECORDS SUMMARY | 2024-09-27 09:31 | XMS_ITS | Encounter Summary ---
Author Organization [employer] Address [address] [facility] [address] [place] [address] Care Team Providers Care Oil Expeller Operator Name Role Phone Name, Oscar CALI Primary Care Provider [phone] Reason for Visit * Reason Comments Med Refill Encounter Details Date Type Department Care Team ([facility] Contact Info) Description 07/19/2024 Refill [facility] [address] [place] [address] Name, MD Oscar [address] [place] [address] Social History Tobacco Use Types Packs/Day Years [...] Description 10/30/2024 1:45 PM EDT Office Visit [facility] [address] [place] [address] NameOscar MD [address] [place] [address] documented as of this encounter Goals Goal [...] documented as of this encounter Care Teams Oil Expeller Operator Relationship Specialty Start Date End Date NameOscar MD [address] [place] [address] PCP - General Family Medicine 08/19/15 documented as of this encounter
== END 2024-09-27 09:52 | disposition home or self-care (01) ==
LOC: HO.HCS 08:56
PROVIDERS: Visit Provider Internal Medicine Cardiovascular Disease
DX: R07.89 Other chest pain (principal)
CPT/HCPCS: 93010; 99204; G2211

== ENCOUNTER → 2024-09-27 08:55 | Outpatient (BNVA) | payer OTHER, SELFPAY | PROVIDERS: Visit Provider Internal Medicine Cardiovascular Disease | DX: R07.89 Other chest pain (principal); R94.31 Abnormal electrocardiogram [ECG] [EKG] | CPT/HCPCS: 93005; 99202 ==

== ENCOUNTER → 2024-11-26 08:49 | Outpatient (REF) | payer OTHER, SELFPAY ==
--- NOTE | ~2024-11-26 | NM_ITS ---
Lexiscan Myocardial perfusion study Indication: Chest pain Technique: The patient was brought in for a Lexiscan perfusion study on 11/26/2024 and was injected 0.4 mg of Lexiscan intravenously. Within a minute of this injection 25 mCi of sestamibi was given intravenously. Images were obtained using the SPECT gamma camera interlaced with the gating device. Images were obtained in supine position. Resting perfusion study was performed on 11/28/2024. Patient was administered 25 mCi of sestamibi intravenously at rest. Images were then obtained in supine position. Total DLP 65 mGy-cm. Images were processed with the software and compared side to side in short axis, horizontal long axis and vertical long axis views. Findings: Raw aquisition reviewed. The stress perfusion study showed mildly reduced tracer uptake in the distal part of anterior wall. No significant change with CT attenuation correction. The gated study shows normal LV systolic function with calculated LVEF of 53%. LV cavity is normal in size. The gated study shows normal wall thickening and contraction of segments. Resting study shows no significant perfusion abnormality. Gating at rest reveals normal wall motion with ejection fraction at 42%. The findings are consistent with mild reversible distal anterior perfusion defect. NM/NM christianne perf SPECT rest & str Impression: 1. Myocardial perfusion imaging study shows mild reversible distal anterior perfusion defect, but normal contractility. Probably artifactual. 2. Gated LVEF is 53% during stress and 42% during rest. Visually, appears normal. Correlate with echocardiogram. 3. Transient ischemic dilatation not present. EKG component of the test reported separately. Electronically signed by: Dandre Cho MD 11/28/2024 03:37 PM EDT
--- NOTE | 2024-11-26 08:53 | CA_ITS ---
Acquisition Time: 2024-11-26 09:52:38 Total Exercise Time: 00:02:00 Test Indications: ATYPICAL CHEST PAIN Medications: SEE MED CHART Protocol: LEXISCAN Max HR: 96 BPM 67% of Pred: 143 BPM Max BP: 136/72 mmHG Max Work Load: 1.0 METS Pharmacological stress test with Lexiscan while pt swings her legs in chair, with reports of abdominal discomfort, with isolated PVCs, with normotensive response to injection. Nondiagnostic EKG for ischemia. In recovry, pt feeling back to baseline. Nuclear images pending. Test reviewed with Dr. Cho. Referred By: Des Ferrell Electronically Signed By: Ja Downing
--- NOTE | 2024-11-26 08:53 | CA_ITS ---
Transthoracic Echocardiogram Patient (Last, First, Middle): Khadra Neal, Gender: Female Date of : 1945 Age: 79 Procedure Date: 11/26/2024 Procedure Type: Transthoracic Echocardiogram Location: OP Height: 154.94 cm Weight: 71.67 kg BSA: 1.71 m2 Heart Rate: 74 bpm BP: 120 / 80 mmHg Director Weights And Measures: SB Referring MD: Des Ferrell MD Symptoms: R07.89 - Other chest pain Study Quality: Adequate ECG Rhythm: Sinus Conclusions: - The left ventricular systolic function is normal. The calculated ejection fraction is 57% by biplane method. - No obvious valvular pathology seen on this study. Findings Left Ventricle Normal left ventricular cavity size. There is normal left ventricular wall thickness. The left ventricular systolic function is normal. The calculated ejection fraction is 57% by biplane method. There is no evidence of regional wall motion abnormalities. Diastolic function is normal for age. Right Ventricle Normal right ventricular cavity size and systolic function. Atria Both atria are normal in size. Aortic Valve There is a normal trileaflet aortic valve. There is mild calcification of the aortic valve. There is no aortic valve stenosis. There is no aortic valve regurgitation. Mitral Valve There is mild anterior mitral leaflet thickening. There is mild mitral annular calcification. There is no mitral valve regurgitation. There is no mitral valve stenosis. Pulmonic Valve The pulmonic valve is likely normal. Tricuspid Valve There is trace tricuspid valve regurgitation. There is no evidence of pulmonary hypertension. Great Vessels The asc aorta is normal in size. Venous The inferior vena cava is normal in size and collapses greater than 50% with inspiration. Pericardium/Pleural There is no evidence of pericardial effusion. Prior Study Comparison No significant change compared to prior study dated: 10/08/2009. Recommendations, Care & Conclusions No obvious valvular pathology seen on this study. Measurements 2D Linear Measurements IVSd: 0.91 0.6-0.9/0.6-1.0 cm LVIDd: 3.92 3.9-5.3/4.2-5.9 cm LVIDd Index: 2.29 2.4-3.2/2.2-3.1 cm/m2 LVIDs: 2.36 2.0-3.6 cm LVPWd: 0.74 0.7-1.1 cm LA Diam: 2.70 2.7-3.8/3.0-4.0 cm LAIDs Index: 1.58 1.5-2.3 cm/m2 LV Mass: 117.27 67-162/88-224 g LV Mass Index: 68.58 43-95/49-115 g/m2 LVOT Diam: 2.10 3.0+(-)1.3 cm 2D Systolic Function EF 4C: 54.30 >55% EF 2C: 61.20 >55% EF BiP: 57.10 >55% Mitral Valve MV Pk E: 0.61 MV PK A: 1.05 MV Decel Time: 303.00 E/A: 0.60 E'Lateral: 8.05 E'Medial: 5.77 E/E' Med: 10.50 E/E' Lat: 7.60 PHT: 89.00 MVA PHT: 2.47 Decel Merrick: 2.01 Aortic Valve AoV Pk Naeem: 1.06 AoV Pk Grad: 4.00 RAÚL: 2.62 LVOT LVOT Pk Naeem: 0.81 LVOT Mn Naeem: 0.56 LVOT VTI: 0.17 LVOT Pk Grad: 3.00 LVOT Mn Grad: 1.00 LVOT Diam: 2.10 LVOT Area: 3.46 Diastolic Function MV Pk E: 0.61 MV Pk A: 1.05 E/A: 0.60 E'Medial: 5.77 E/E' Med: 10.50 E' Laterial: 8.05 E/E' Lat: 7.60 Right Ventricle TAPSE (mm): 20.70 TVS' Naeem: 11.20 Tricuspid Valve TR Pk Naeem: 2.32 TR Pk Grad: 22.00 RA Press: 3.00 RVSP: 25.00 Great Vessels Aorta Sinus of Valsalva: 3.00 2.0-3.5 cm Ao Asc: 3.20 2.1-3.4 cm Pulmonary Valve PV Pk Naeem: 0.89 Peak PV Grad: 3.00 Updated in Other Vendor System with Status of Final Dandre Cho MD electronically signed on 11/26/2024 1:27:48 PM with status of Final
== END ==
LOC: HO.CARD 08:49
PROVIDERS: PCP Internal Medicine Geriatric Medicine; Visit Provider Internal Medicine Cardiovascular Disease
DX: R07.89 Other chest pain (principal)
CPT/HCPCS: 78452; 93017; 93306; A9500; J0280; J2785

== ENCOUNTER → 2024-11-26 08:53 | Outpatient (BNV) | payer OTHER, SELFPAY | PROVIDERS: PCP Internal Medicine Geriatric Medicine | DX: R07.89 Other chest pain (principal); I35.8 Other nonrheumatic aortic valve disorders; I34.81 Nonrheumatic mitral (valve) annulus calcification; I49.3 Ventricular premature depolarization | CPT/HCPCS: 78452; 93016; 93018; 93320; 93325; 93350 ==

== ENCOUNTER 2024-11-30 13:23 | Outpatient (AMB) | payer OTHER, SELFPAY ==
--- NOTE | 2024-11-30 13:44 | MHC.OFFVIS ---
Vital Signs 11/30/24 13:45 Height 5 ft 1 in Weight 156 lb 8.451 oz BMI 29.6 BP 122/60 Blood Pressure Location Lt brachial Position Sitting Pulse 70 Pulse Source Pulse Oximeter Intake Visit Reasons: f/u after testing Allergies aspirin (ASPIRIN) Allergy (Unknown, Verified 06/15/24 15:06) hives, rash Penicillins (PENICILLINS) Allergy (Unknown, Verified 06/15/24 15:06) hives Medication List - Last Reconciled 11/30/24 by Sravani Joseph, AGRICULTURE INSTRUCTOR-C albuterol sulfate mg inhalation Q8H PRN amlodipine 5 mg PO DAILY cyclobenzaprine 5 mg (1/2 x 10 mg) PO BEDTIME PRN hydrochlorothiazide 25 mg PO DAILY mirabegron ER (Myrbetriq) 25 mg PO DAILY 90 days ondansetron 1 tab PO Q6H PRN raloxifene 60 mg PO DAILY simvastatin 1 tab PO BEDTIME HPI HPI f/u after testing: Details: Khadra is a 79-year-old female with past medical history of hypertension, hyperlipidemia, family history of coronary artery disease ( 3 sisters with CABG) who underwent cardiac evaluation for chest discomfort with echocardiogram and nuclear stress test and now presents for test results. Today she reports that she has been feeling fine with no concerning symptoms. She tells me that the chest discomfort she had only occurred on the day following her home sleep study. She feels the monitor pressing on her chest cause some chest wall discomfort. She has not been getting any chest discomfort with physical activity or recurrent discomfort at rest. No shortness of breath, PND, orthopnea or edema. No lightheadedness, presyncope, syncope. She continues to smoke and has since age 16. She drinks coffee 3 times per day. She describes herself as physically active. [facility] Medical History (Updated 11/30/24 @ 16:46 by Sravani Joseph, AGRICULTURE INSTRUCTOR-C) GERD (gastroesophageal reflux disease) Asthma Hypercholesterolemia Hypertension Surgical History History of local excision of skin lesion (03/22/19) Hx of right breast biopsy (02/2016) History of right breast biopsy (09/26/13) History of breast lump/mass excision (2002) History of tonsillectomy History of bilateral carpal tunnel release History of cervical spinal surgery History of tubal ligation History of laparoscopic cholecystectomy (08/06/08) Hx of endoscopy History of colonoscopy Family History Father Family history of due to heart problem at 50 years of age or younger History of cardiovascular disorder Mother Hx of cancer of lung Social History Household Members: Spouse Housing: House Are you a primary professional healthcare representative to a significant other at home: No Do you presently have visiting nurse or other home services: No Alcohol intake: current Alcohol intake frequency: does not drink Patient Tobacco Use Status: Current everyday Tobacco user service: No Current occupational status: unemployed Review of Systems Const All systems reviewed & are unremarkable except as noted in HPI and below Denies weakness ENT Denies dizziness Card Denies chest pain, Denies chest pain with activity, Denies syncope, Denies rapid heart rate, Denies pedal edema, Denies edema, Denies leg edema, Denies lightheadedness, Denies palpitations, Denies dyspnea, Denies dyspnea on exertion and Denies orthopnea Resp Denies cough, Denies dyspnea and Denies dyspnea on exertion GI Denies hematochezia and Denies change in stool character Musc Denies abnormal gait, Denies muscle cramps, Denies muscle weakness, Denies numbness, Denies radiating pain into limb and Denies tingling Neuro Denies abnormal gait, Denies dizziness, Denies syncope, Denies numbness, Denies tingling and Denies weakness Endo Denies palpitations Physical Exam Vital Signs: Last Vital Signs Pulse 70 11/30/24 13:45 BP 122/60 11/30/24 13:45 BMI result Body Mass Index 29.6 Const General: cooperative, healthy appearing, comfortable and no acute distress Orientation/consciousness: patient oriented x3 Neck Neck: Yes normal visual inspection Resp Effort & Inspection: normal respiratory effort Auscultation: clear to auscultation bilaterally, no rales, no rhonchi and no wheezes Cardio Rate: regular rate Rhythm: regular rhythm Heart sounds: S1 normal heart sound present, S2 normal heart sound present, no gallops, no murmurs and no rubs Neuro General: patient oriented x3 Extrem General: Yes normal to inspection, No no pedal edema and No calf tenderness Psych Appearance: grossly normal Mental Status: mental status grossly normal Speech and movement: Normal speech and movement present Assessment & Plan Assessment & Plan (1) Atypical chest pain: Code(s): R07.89 - Other chest pain Category: Medical Plan: Cardiac evaluation for atypical chest discomfort in patient with multiple cardiac risk factors including hypertension, hyperlipidemia, smoking, family history CAD. Echocardiogram done 11/26/2024 showed EF 57%, no valve abnormalities no regional wall motion abnormalities. Exercise nuclear stress test done 11/26/2024 showed mild reversible distal anterior perfusion defect but normal contractility, probably artifact. Test results reviewed with her in detail. In the absence of symptoms no further testing needed at this time. If she does have by chest discomfort or new shortness of breath will plan on a CTA of the coronary arteries. This was reviewed with her in detail. Signs and symptoms of angina discussed. Cardiology follow-up 1 year, sooner if needed (2) Family history of coronary artery disease: Comment: Three sisters with coronary artery bypass grafting Code(s): Z82.49 - Family history of ischemic heart disease and other diseases of the circulatory system Category: Medical (3) Hypertension: Code(s): I10 - Essential (primary) hypertension Category: Medical Plan: Blood pressure goal less than 130/80. Well controlled at this time. No med changes made Plan I discussed with the patient that her echocardiogram and stress test results were largely normal, with a possible artifact noted on the stress test. We agreed on a one-year follow-up, with the option to return sooner if symptoms develop. I advised her on the importance of monitoring her symptoms and maintaining a healthy lifestyle, including smoking cessation. Patient Instructions: - Monitor for any chest discomfort or new symptoms. - Follow up in one year, or sooner if symptoms develop. - Maintain a healthy lifestyle to manage hyperlipidemia and blood pressure. - Consider reducing smoking for better health. Patient was informed and verbally consented to the use of an ambient scribe for clinic note documentation during this visit. Visit time spent on chart review, interview, assessment, orders, documentation. Coding Level of Care Code Est Pt Level 4 (03348) Complex EM visit Add On G2211 Diagnoses Atypical chest pain R07.89 Family history of coronary artery disease Z82.49 Hypertension I10 Time Spent (min) 28
[2024-11-30 13:45] VITALS: BP 122/60; PULSE 70; BMI 29.6
--- OUTSIDE RECORDS SUMMARY | 2024-11-30 13:52 | XMS_ITS | Encounter Summary ---
Author Organization [employer] Address [address] [facility] [place] [address] Care Team Providers Care Deputy Director Of Finance Name Role Phone Name, Oscar CALI Primary Care Provider [phone] Reason for Visit * Reason Onset Date Comments Triage 09/03/2022 Encounter Details Date Type Department Care Team ([facility] st Contact Info) Description 09/03/2022 Telephone [facility] [address] [place] [address] [phone] Name, MD Oscar [address] [place], [place] [id number] Triage Social History Tobacco Use Types Packs/Day [...] PCP team nurses. Pt advised to seek CAC today or Tuesday if sx worsen or [...] accepted this outcome Please contact pt at [phone] documented in this encounter Plan of Treatment Upcoming Encounters Date Type Department Care Team (Late st Contact Info) Description 01/15/2025 10:45 AM EDT Office Visit [facility] [address] [place] [phone] Name, MD Oscar [address] [place] [phone] documented as of this encounter Visit Diagnoses Diagnosis Injury of left knee, subsequent encounter- Primary documented in this encounter Care Teams Deputy Director Of Finance Relationship Specialty Start Date End Date NameOscar MD [address] [place] [id number] PCP - General Family Medicine 08/19/15 documented as of this encounter
== END 2024-11-30 14:26 | disposition home or self-care (01) ==
LOC: HO.HCS 13:24
PROVIDERS: PCP Internal Medicine Geriatric Medicine; Visit Provider Nurse Practitioner Family
DX: R07.89 Other chest pain (principal); Z82.49 Family history of ischemic heart disease and other diseases of the circulatory system; I10 Essential (primary) hypertension
CPT/HCPCS: 99214; G2211

== ENCOUNTER → 2024-11-30 13:23 | Outpatient (BNVA) | payer OTHER, SELFPAY | PROVIDERS: PCP Internal Medicine Geriatric Medicine; Visit Provider Nurse Practitioner Family | DX: R07.89 Other chest pain (principal); I10 Essential (primary) hypertension; Z82.49 Family history of ischemic heart disease and other diseases of the circulatory system | CPT/HCPCS: 99212 ==

== ENCOUNTER 2025-01-09 09:42 | Outpatient (REF) | payer OTHER, SELFPAY ==
--- NOTE | ~2025-01-09 | MM_ITS ---
EXAMINATION: DXA BONE DENSITY AXIAL HISTORY: Osteopenia TECHNIQUE: [employer]Stream Dual energy absorptiometry (DEXA) of the lumbar spine, total left hip, and femoral neck was performed. COMPARISON: Comparison is made with the prior examination dated 09/19/2020. FINDINGS: The bone mineral density of the lumbar spine is 1.152 g/cm2, corresponding to a T-score of -0.2, and a Z-score of 1.2. This is indicative of normal bone mineral density. This represents a BMD change of -1.2% compared to the prior exam. This is not statistically significant. The bone mineral density of the left total hip is 0.996 g/cm2, corresponding to a T-score of -0.1, and a Z-score of 1.5. This is indicative of normal bone mineral density. This represents a BMD change of -8.0% compared to the prior exam. This is statistically significant. The bone mineral density of the left femoral neck is 0.859 g/cm2, corresponding to a T-score of -1.3, and a Z-score of 0.5. This is indicative of osteopenia. This represents a BMD change of -4.7% compared to the prior exam. MM/XR DEXA axial skeleton IMPRESSION: Based on bone mineral density, and according to World Health Organization (WHO) criteria, the diagnosis is consistent with osteopenia. Statistically, 68% of repeat scans fall within 1 SD (+/- 0.010 g/cm2 for AP spine L1-L4) and 1 SD (+/- 0.012 g/cm2 for femur total) FRAX is a trademark of the [employer]'s [employer] [employer], a World Health Organization (WHO) Collaborating Center. Electronically signed by: Ethan Alejandre MD 01/09/2025 10:55 AM EDT
--- OUTSIDE RECORDS SUMMARY | 2025-01-09 10:07 | XMS_ITS ---
Author Name Elvie Francis NP Address [address] [place] [address] Phone [phone] [facility] Care Team Providers Care Senior Shipping Clerk Name Role Phone Elvie Francis Unavailable [phone] Reason for Referral Not Available Allergies, adverse reactions, alerts No known allergies History of medication use Medication Class Instructions Start Date End Date Estradiol 0.1 mg/GM Crm APPLY A PEA SIZE TO URETHRA DAILY 2021-05-04 No Data Available Raloxifene 60 mg Tab TAKE 1 TABLET BY MO UTH EVERY DAY 2021-09-14 No Data Available Simvastatin 20 mg Tab TAKE 1 TABLET BY M OUT EVERY DAY IN THE EVENING 2021-08-31 No [...] a MEAL 2021-09-15 No Data Available Nystatin 260208 UNIT/GM Crm APPLY TO THE AFFECTED AREA(S) [...] BY TANNER TH AT BEDTIME 2024-02-28 2024-07-16 Zaplox 2 w/Device Kit USE DIR ECTED TO [...] List Problem Status Onset Date Resolved Date Synopsis 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 Patient has requested a new walker from PCP, as she can't use the one she has. Member to call for the following symptoms: BP <110/70 / Vertigo/ WeaknessPlanned intervention: Order x-ray if applicable of injured site / Encourage extra fluid intake / Assess for change in mental status and provide reassurance if none (patient's Baseline is A&O) / Review importance of sitting for two to three minutes prior to standing after laying down Other problems related to medical facilities and other health care Resolved 2023-11-06 5 2024-07-17 If you ever take your blood pressure and it is consistently over 170/90 or low 90/50s, have chest pain, shortness of breath, wheezing, fever, or leg swelling call us at [phone]. We are here to help. Fall in home, sequela Active 2023-11-06 5 N/A s/p fall Gait unsteady R26.81, W19.XXXSRequesting lightweight [id number], 152Patient reporting on 07/16/24 she is unable to use walker without wheels as she can not pick it up and keep her balance. She requested walker with wheels from her PCP. Type 2 diabetes mellitus wit h other diabetic ophthalmic complicationCataractGlaucoma Active 0 7 N/A 07/16/24 RX: MetforminGlucometer Checks [id number] 6.4 on 02/28/24 per outside careRoutine diabetic Eye Exams Overactive bladder Active 2022-03-0 7 N/A RX: Myrbetriq, estradiol, vagisilWears a pad for protection 07/16/24Continues to have urinary frequency and OAB symptoms. Stopped Myrbetriq and started Oxybutynin - Advised on sx to monitor for. Scheduled f/up with [facility] in 2 weeks to evaluate. 08/01/24 was changes from myrbetriq to oxybutynin and doing much better, frequency has improved substantially COPD (chronic obstructive pulmonary disease) Active 7 N/A RX: albuterol inhaler and SymbicortHas nebulizer Pulse ox 98% - checks dailyCurrent smoker - was told her COPD is mild. ANTON recommended smoking cessationFollows PCP every 6 months08/01/24 stable no changes Encounters Encounters Type Facility Date of Service Diagnosis/Complaint Pain Assessment - Pain Documented on a Pain Scale (1125F) [facility] [place] Pain Assessment - Pain Documented on a Pain Scale (1125F) [facility] [place] Pain Assessment - Pain Documented on a Pain Scale (1125F) [facility] [place] Pain Assessment - Pain Documented on a Pain Scale (1125F) [facility] [place] 03[place] Pain Assessment - Pain Documented on a Pain Scale (1125F) [facility] [place] 03/18[place]20[place] Pain Assessment - Pain Documented on a Pain Scale (1125F) [facility] [place] 03[place] Pain Assessment - Pain Documented on a Pain Scale (1125F) [facility] [place] 03[place]18[place]2022 Pain Assessment - Pain Documented on a Pain Scale (1125F) [facility] [place]/18[place]20[place] Pain Assessment - Pain Documented on a Pain Scale (1125F) [facility] [place] 03/18[place]2022 Malignant neoplasm of unspec ified site of left female breastType 2 diabetes mellitus with diabetic cataractType 2 diabetes mellitus with other diabetic ophthalmic complicationUnspecified cataractUnspecified glaucomaChronic obstructive pulmonary disease, unspecifiedOveractive bladder RN, CN or CP time with patient by phone; use with 1111F, BP, A1c or other CPTII codes [facility]20[place] Encounter for other specifie d aftercare RN, CN or CP time with patient by phone; use with 1111F, BP, A1c or other CPTII codes [facility] 07[place] Estab. patient 30-39min; chronic exacerbation, 2 stable chronic or 1 acute illness add add modifier 95 for video, (do not use for phone, instead use 92635-90) [facility] ([place]) 09/02/2022 Overactive bladderType 2 risa betes mellitus with other diabetic ophthalmic complicationUnspecified cataractUnspecified glaucomaMalignant neoplasm of unspecified site of left female breastEndocrine disorder, unspecifiedChronic obstructive pulmonary disease, unspecifiedImmunodeficiency due to conditions classified elsewhere Estab. patient 30-39min; chronic exacerbation, 2 stable chronic or 1 acute illness add add modifier 95 for video, (do not use for phone, instead use 51745-61) [facility] [place] 09/[place]20[place] Estab. patient 30-39min; chronic exacerbation, 2 stable chronic or 1 acute illness add add modifier 95 for video, (do not use for phone, instead use 10949-22) [facility] [place] 09/02/20[place] Estab. patient 30-39min; chronic exacerbation, 2 stable chronic or 1 acute illness add add modifier 95 for video, (do not use for phone, instead use 19607-21) [facility] Estab. patient 30-39min; chronic exacerbation, 2 stable chronic or 1 acute illness add add modifier 95 for video, (do not use for phone, instead use 57287-33) [facility] [place] 09/02/2022 Estab. patient 30-39min; chronic exacerbation, 2 stable chronic or 1 acute illness add add modifier 95 for video, (do not use for phone, instead use 84568-74) [facility] ([place] 09/02/2022 Estab. patient 30-39min; chronic exacerbation, 2 stable chronic or 1 acute illness add add modifier 95 for video, (do not use for phone, instead use 91505-89) [facility] 09[place]20[place] Estab. patient 30-39min; chronic exacerbation, 2 stable chronic or 1 acute illness add add modifier 95 for video, (do not use for phone, instead use 69173-86) [facility] ([place] 09/02/2022 Estab. patient 30-39min; chronic exacerbation, 2 stable chronic or 1 acute illness add add modifier 95 for video, (do not use for phone, instead use 14265-29) [facility] [place] 09/02/2022 Estab. patient 30-39min; chronic exacerbation, 2 stable chronic or 1 acute illness add add modifier 95 for video, (do not use for phone, instead use 31994-18) [facility] [place] 11/29/2023 Type 2 diabetes mellitus wit h other diabetic ophthalmic complicationType 2 diabetes mellitus with diabetic cataractOther problems related to medical facilities and other health careOveractive bladderMalignant neoplasm of unspecified site of left female breastEndocrine disorder, unspecifiedChronic obstructive pulmonary disease, unspecifiedUnspecified asthma, uncomplicatedImmunodeficiency due to conditions classified elsewhereUnsteadiness on feetUnspecified fall, sequelaUnsp place in [facility] Estab. patient 30-39min; chronic exacerbation, 2 stable chronic or 1 acute illness add add modifier 95 for video, (do not use for phone, instead use 67184-60) [facility]20[place] Estab. patient 30-39min; chronic exacerbation, 2 stable chronic or 1 acute illness add add modifier 95 for video, (do not use for phone, instead use 62265-57) [facility] ([place] 11[place]29/2023 Estab. patient 30-39min; chronic exacerbation, 2 stable chronic or 1 acute illness add add modifier 95 for video, (do not use for phone, instead use 50820-89) [facility]20[place] Estab. patient 30-39min; chronic exacerbation, 2 stable chronic or 1 acute illness add add modifier 95 for video, (do not use for phone, instead use 68337-90) [facility]20[place] Estab. patient 30-39min; chronic exacerbation, 2 stable chronic or 1 acute illness add add modifier 95 for video, (do not use for phone, instead use 93193-87) [facility]20[place] Estab. patient 30-39min; chronic exacerbation, 2 stable chronic or 1 acute illness add add modifier 95 for video, (do not use for phone, instead use 22103-60) [facility]20[place] Estab. patient 30-39min; chronic exacerbation, 2 stable chronic or 1 acute illness add add modifier 95 for video, (do not use for phone, instead use 53410-41) [facility]2023 Estab. patient 30-39min; chronic exacerbation, 2 stable chronic or 1 acute illness add add modifier 95 for video, (do not use for phone, instead use 13657-87) [facility]29[place]2023 Estab. patient 30-39min; chronic exacerbation, 2 stable chronic or 1 acute illness add add modifier 95 for video, (do not use for phone, instead use 31939-20) [facility]2023 Estab. patient 20-29min; 1 stable chronic or 2 minor; add add modifier 95 for video, modifier 93 for phone [facility] [place] 07[place]16[place]2024 Type 2 diabetes mellitus wit h other diabetic ophthalmic complicationGlaucoma in diseases classified elsewhereChronic obstructive pulmonary disease, unspecifiedUnspecified cataractOveractive bladderPersonal history of malignant neoplasm of breastEndocrine disorder, unspecifiedImmunodeficiency due to conditions classified elsewhereUnsp place in unsp non-[facility] (private) residence as placeUnsteadiness on feetUnspecified fall, sequelaOther problems related to medical facilities and other health care Estab. patient 20-29min; 1 stable chronic or 2 minor; add add modifier 95 for video, modifier 93 for phone [facility] 07/16[place]20[place] Estab. patient 20-29min; 1 stable chronic or 2 minor; add add modifier 95 for video, modifier 93 for phone [facility] [place] Estab. patient 20-29min; 1 stable chronic or 2 minor; add add modifier 95 for video, modifier 93 for phone [facility] [place] 07/16/20[place] Estab. patient 20-29min; 1 stable chronic or 2 minor; add add modifier 95 for video, modifier 93 for phone [facility] [place] 07/16/20[place] Estab. patient 20-29min; 1 stable chronic or 2 minor; add add modifier 95 for video, modifier 93 for phone [facility] [place] 07/16/2024 Estab. patient 20-29min; 1 stable chronic or 2 minor; add add modifier 95 for video, modifier 93 for phone [facility] [place] 07/16/20[place] Estab. patient 20-29min; 1 stable chronic or 2 minor; add add modifier 95 for video, modifier 93 for phone [facility] [place] 07/16/20[place] Estab. patient 10-29min; 1 minor problem; add add modifier 95 for video, modifier 93 for phone [facility] [place] 08/[place]2024 Overactive bladderOther spec ified chronic obstructive pulmonary disease Estab. patient 10-29min; 1 minor problem; add add modifier 95 for video, modifier 93 for phone [facility] [place] 08/01/2024 Vital Signs Date of Collection [...] Current Smoking Status Current every day smoker 2025-01-09 Sex Female Gender identity Woman History of [...] (do not use for phone, instead use 95937-28) 61092 2022-03-18 No Data Available No Data Availa ble RN, CN or CP time with patient by phone; use with 1111F, BP, A1c or other CPTII codes 38393 2022-07-08 No Data Available No Data Avai lable Medications prescribed in hospital were reviewed and reconciled against what they were taking prior to admission during today's visit. (1111F) 1111F 2022-07-08 No Data Available No Data Availa ble Estab. patient 30-39min; chronic exacerbation, 2 stable chronic or 1 acute illness add add modifier 95 for video, (do not use for phone, instead use 50490-09) 27283 2022-09-02 No Data Available No Data Availa [...] (do not use for phone, instead use 29910-93) 44158 2023-11-29 No Data Available No Data Availa [...] ble Advance care planning discussed and documented advance care plan or surrogate decision-maker was documented in the medical record. (1123F) 1123F 2023-11-29 No Data Available No Data Availa ble Estab. patient 20-29min; 1 stable chronic or 2 minor; add add modifier 95 for video, modifier 93 for phone 79909 2024-07-16 No Data Available No Data Availa [...] ble Advance care planning discussed and documented advance care plan or surrogate decision-maker was [...] 95 for video, modifier 93 for phone 23684 2024-08-01 No Data Available No Data Availa [...] Some Help Needed; Toileting: Independent/needs help 2024-07-17 QUALITY ENG daily 2022-03-18 Cane 2023-11-29 Fall in last [...] call CB 27/12 w/ any concerns/questions, verbal understanding[facility]: Complete ECCA 07/28/22 as [...] modifier 95Advance care planning discussed and documented advance care plan or surrogate decision-maker was [...] fever, or leg swelling call us at [phone]. We are here to help.RX: Myrbetriq, estradiol, vagisilWears a pad for protectionRX: raloxifeneFollows Oncology every 6 moRX: albuterol inhaler and SymbicortHas nebulizer Pulse ox 98% - checks dailyFollows PCP every 6 monthsimmunodeficiency d/t conditions classified elsewhere based on member has a documented diagnosis that includes malignant neoplasm of female breast, monitor closely for s/s infections/p fall Gait unsteady R26.81, W19.XXXSRequesting lightweight [id number], 152 2024-07-16 08:46:27 Functional Status As sessed (1170F)Advance Care Directive Advance care planning discussion documented in the medical record (1158F)Advance care planning discussed and documented advance care plan or surrogate decision-maker was [...] needs that may arise.07/16/24 RX: MetforminGlucometer Checks [id number] 6.4 on 02/28/24 per outside careRoutine diabetic Eye ExamsRX: Myrbetriq, estradiol, vagisilWears a pad for protection 07/16/24Continues to have urinary frequency and OAB symptoms. Stopped Myrbetriq and started Oxybutynin - Advised on sx to monitor for. Scheduled f/up with [facility] in 2 weeks to evaluate.RX: raloxifeneFollows Oncology [...] infections/p fall Gait unsteady R26.81, W19.XXXSRequesting lightweight [id number], 152Patient reporting on 07/16/24 she is unable [...] to call for the following symptoms: BP <110/70 / Vertigo/ WeaknessPlanned intervention: Order x-ray if applicable [...] for phoneContinue to see PCP. Follow-up with [facility] as needed for any acute or disease education needs that may arise 27/12.RX: Myrbetriq, estradiol, vagisilWears a pad for protection 07/16/24Continues to have urinary frequency and OAB symptoms. Stopped Myrbetriq and started Oxybutynin - Advised on sx to monitor for. Scheduled f/up with [facility] in 2 weeks to evaluate. 08/01/24 was [...] ER. 2022-03-18 Discussed how to con tact [facility] via phone or tablet. 2022-09-02 1. Remember to keep all appointments with your PCP.2. Take all medication on time and try to eat healthy3. Call if you have questions or concerns before you go to the ER.4. Discussed how to contact [facility] via phone or tablet. 2024-07-16 Continue [...]
--- OUTSIDE RECORDS SUMMARY | 2025-01-09 10:07 | XMS_ITS | Encounter Summary ---
Author Organization [employer] Address [address] [place] [address] Care Team Providers Care Embryology Teacher Name Role Phone Name, Oscar CALI Primary Care Provider [phone] Reason for Visit * Reason Onset Date Comments Triage 09/03/2022 Encounter Details Date Type Department Care Team ([facility] st Contact Info) Description 09/03/[address] [facility] MEDICINE [address] [place] [address] [phone] Name, MD Oscar [address] [place], [place] [phone] Triage Social History Tobacco Use Types Packs/Day [...] PCP team nurses. Pt advised to seek WIC today or Tuesday if sx worsen or [...] accepted this outcome Please contact pt at [phone] documented in this encounter Plan of Treatment Upcoming Encounters Date Type Department Care Team (Late st Contact Info) Description 01/15/2025 10:45 AM EDT Office Visit [facility] MEDICINE [address] [place] [address] Name, MD Oscar [address] [place] [address] 04/22/2025 1:00 PM EST Office Visit [facility] OPTOMETRY [address] [place] [address] Yissel Ramos OD [address] [place] [address] documented as of this encounter Visit Diagnoses Diagnosis Injury of left knee, subsequent encounter- Primary documented in this encounter Care Teams Embryology Teacher Relationship Specialty Start Date End Date NameOscar MD [address] [place] [address] PCP - General Family Medicine 08/19/15 documented as of this encounter
--- OUTSIDE RECORDS SUMMARY | 2025-01-09 10:08 | XMS_ITS | Patient Health Record ---
Author Organization [facility] Address [address] [place] [address] Care Team Providers Care Microwave Remote Sensing Scientist Name Role Phone Name Oscar CALI Primary Care Provider Ethan Moncada [phone] Allergies Allergen (clinical drug ingredient) Drug/Non Drug Allergy documented on EMR Reaction Allergy Type Onset Date Status Penicillin Unknown Drug Allergy Active Codeine Phosphate Unknown Drug Allergy Active aspirin Aspirin Unknown Drug Allergy Active Reason For Referral No Information Medications Medication SIG (Take, Route, Frequency, Duration) Notes Start Date End Date Status Promethazine HCl 25 MG TAKE 1 TABLET BY MOUTH EVERY 8 HOURS NEEDED FOR NAUSEA Oral for 4 Active Albuterol Sulfate (2.5 MG/3ML) 0.083% TAKE 1 VIAL BY NEBULIZATION EVERY 4 HOURS NEEDED FOR WHEEZING. Inhalation for 25 Active Flovent HFA 110 MCG/ACT INHALE 2 PUFFS I NTO THE LUNGS 2 TIMES DAILY. Inhalation for 25 Active Raloxifene HCl 60 MG TAKE 1 TABLET BY MO UTH EVERY DAY Oral for 90 Active Simvastatin 40 MG TAKE 1 TABLET BY TANNER TH AT BEDTIME Oral for 30 Active Colyte w Flavor Packs 240 GM as directed Orally as directed for 1 day(s) 09/19/2014 Active Problems Problem Type SNOMED Code ICD Code Onset Dates Problem Status W/U Status Risk Notes Problem Pre-surgery evaluation (403452591) Other specified pre-operative examination (V72.83) Active confirmed Problem Colon cancer screening (V76.51) Active confirmed Problem History of adenomatous polyp of colon (711989489) History of adenomatous polyp of colon (V12.72) Active confirmed Plan Of Treatment Future Test Test Name Order Date COLONOSCOPY 09/19/2014 Insurance Providers Payer Name Payer Address Payer Phone Subscriber Number Group Number Insured Name Patient Relationship to Insured Coverage Start Date Coverage End Date [facility] 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 Higuera C-spine disc surgery [facility]
== END 2025-01-09 09:43 | disposition home or self-care (01) ==
LOC: HO.MAMMO 09:42
PROVIDERS: PCP Internal Medicine Geriatric Medicine; Visit Provider Internal Medicine Medical Oncology
DX: Z13.820 Encounter for screening for osteoporosis (principal); N60.91 Unspecified benign mammary dysplasia of right breast; N60.92 Unspecified benign mammary dysplasia of left breast; M85.89 Other specified disorders of bone density and structure, multiple sites
CPT/HCPCS: 77080

== ENCOUNTER → 2025-01-09 10:30 | Outpatient (BNV) | payer OTHER, SELFPAY | PROVIDERS: PCP Internal Medicine Geriatric Medicine; Visit Provider Radiology Diagnostic Radiology | DX: E28.39 Other primary ovarian failure (principal) | CPT/HCPCS: 77080 ==

== ENCOUNTER 2025-01-18 11:51 | Outpatient (REF) | payer OTHER, SELFPAY ==
--- NOTE | ~2025-01-18 | XR_ITS ---
EXAMINATION: XR KNEE, LEFT CLINICAL INFORMATION: Chronic left knee pain COMPARISON: Correlated to AP standing. Projection dated October 05, 2022 and July 06, 2022. TECHNIQUE: AP oblique and lateral views of the left knee. FINDINGS: Mild joint space narrowing involving mostly the medial compartment. No acute cortical disruption or malalignment. Small exostosis at the quadriceps tendon insertion in the anterior superior patella. No suprapatellar bursa joint effusion. Vascular calcifications. No lytic or blastic lesions. 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 Mild enthesopathy, quadriceps tendon. Atherosclerosis disease, peripheral. Electronically signed by: Shamar Francis MD 01/18/2025 12:44 PM EDT
--- OUTSIDE RECORDS SUMMARY | 2025-01-18 11:54 | XMS_ITS ---
Author Name Elvie Franics NP Address [address] [place] [address] Phone [phone] [facility] Care Team Providers Care Insurance Professional Name Role Phone Elvie Francis Unavailable [phone] Reason for Referral Not Available Allergies, adverse [...] a MEAL 2021-09-15 No Data Available Nystatin 326020 UNIT/GM Crm APPLY TO THE AFFECTED AREA(S) [...] BY TANNER TH AT BEDTIME 2024-02-28 2024-07-16 [employer] 2 w/Device Kit USE DIR ECTED TO [...] fever, or leg swelling call us at [phone]. We are here to help. Fall in home, sequela Active 2023-11-06 5 N/A s/p fall Gait unsteady R26.81, W19.XXXSRequesting lightweight , 152Patient reporting on 07/16/24 she is unable to use walker without wheels as she can not pick it up and keep her balance. She requested walker with wheels from her PCP. Type 2 diabetes mellitus wit h other diabetic ophthalmic complicationCataractGlaucoma Active 0 7 N/A 07/16/24 RX: MetforminGlucometer Checks [id number] 6.4 on 02/28/24 per outside careRoutine diabetic [...] Pain Documented on a Pain Scale (1125F) [facility] [place]20[place] Pain Assessment - Pain Documented on a Pain Scale (1125F) [facility] [place]/18[place]20[place] Pain Assessment - Pain Documented on a Pain Scale (1125F) [facility] [place]/18[place]20[place] Pain Assessment - Pain Documented on a Pain Scale (1125F) [facility] [place]/18[place]2022 Pain Assessment - Pain Documented on a Pain Scale (1125F) [facility] [place]/18[place]2022 Pain Assessment - Pain Documented on a Pain Scale (1125F) [facility] [place]/18[place]2022 Pain Assessment - Pain Documented on a Pain Scale (1125F) [facility] [place]/18[place]2022 Pain Assessment - Pain Documented on a Pain Scale (1125F) [facility] [place]/18[place]2022 Pain Assessment - Pain Documented on a Pain Scale (1125F) [facility] [place] 03/18[place]2022 Malignant neoplasm of unspec ified site of left female breastType 2 diabetes mellitus with diabetic cataractType 2 diabetes mellitus with other diabetic ophthalmic complicationUnspecified cataractUnspecified glaucomaChronic obstructive pulmonary disease, unspecifiedOveractive bladder RN, CN or CP time with patient by phone; use with 1111F, BP, A1c or other CPTII codes [facility]2022 Encounter for other specifie d aftercare RN, CN or CP time with patient by phone; use with 1111F, BP, A1c or other CPTII codes [facility]20[place] Estab. patient 30-39min; chronic exacerbation, 2 stable chronic or 1 acute illness add add modifier 95 for video, (do not use for phone, instead use 75194-32) [facility] ([place]) 09/02/2022 Overactive bladderType 2 risa betes mellitus with other diabetic ophthalmic complicationUnspecified cataractUnspecified glaucomaMalignant neoplasm of unspecified site of left female breastEndocrine disorder, unspecifiedChronic obstructive pulmonary disease, unspecifiedImmunodeficiency due to conditions classified elsewhere Estab. patient 30-39min; chronic exacerbation, 2 stable chronic or 1 acute illness add add modifier 95 for video, (do not use for phone, instead use 43898-90) [facility] ([place]) 09/02/2022 Estab. patient 30-39min; chronic exacerbation, 2 stable chronic or 1 acute illness add add modifier 95 for video, (do not use for phone, instead use 92246-16) [facility] [place] 09/02/2022 Estab. patient 30-39min; chronic exacerbation, 2 stable chronic or 1 acute illness add add modifier 95 for video, (do not use for phone, instead use 06334-07) [facility] 09[place]02[place]20[place] Estab. patient 30-39min; chronic exacerbation, 2 stable chronic or 1 acute illness add add modifier 95 for video, (do not use for phone, instead use 94206-63) [facility] [place] 09/02/2022 Estab. patient 30-39min; chronic exacerbation, 2 stable chronic or 1 acute illness add add modifier 95 for video, (do not use for phone, instead use 37808-48) [facility] ([place] 09/02/2022 Estab. patient 30-39min; chronic exacerbation, 2 stable chronic or 1 acute illness add add modifier 95 for video, (do not use for phone, instead use 21351-80) [facility] 09[place]02[place]20[place] Estab. patient 30-39min; chronic exacerbation, 2 stable chronic or 1 acute illness add add modifier 95 for video, (do not use for phone, instead use 79421-94) [facility] ([place] 09/02/2022 Estab. patient 30-39min; chronic exacerbation, 2 stable chronic or 1 acute illness add add modifier 95 for video, (do not use for phone, instead use 83659-66) [facility] [place] 09/02/2022 Estab. patient 30-39min; chronic exacerbation, 2 stable chronic or 1 acute illness add add modifier 95 for video, (do not use for phone, instead use 42988-15) [facility] [place] 11/29/2023 Type 2 diabetes mellitus wit h other diabetic ophthalmic complicationType 2 diabetes mellitus with diabetic cataractOther problems related to medical facilities and other health careOveractive bladderMalignant neoplasm of unspecified site of left female breastEndocrine disorder, unspecifiedChronic obstructive pulmonary disease, unspecifiedUnspecified asthma, uncomplicatedImmunodeficiency due to conditions classified elsewhereUnsteadiness on feetUnspecified fall, sequelaUnsp place in [facility] Estab. patient 30-39min; chronic exacerbation, 2 stable chronic or 1 acute illness add add modifier 95 for video, (do not use for phone, instead use 69433-31) [facility] 11[place]29[place]2023 Estab. patient 30-39min; chronic exacerbation, 2 stable chronic or 1 acute illness add add modifier 95 for video, (do not use for phone, instead use 64119-05) [facility] ([place] 11/29/2023 Estab. patient 30-39min; chronic exacerbation, 2 stable chronic or 1 acute illness add add modifier 95 for video, (do not use for phone, instead use 92090-81) [facility] 11[place]29/2023 Estab. patient 30-39min; chronic exacerbation, 2 stable chronic or 1 acute illness add add modifier 95 for video, (do not use for phone, instead use 48476-12) [facility] 11[place]29/2023 Estab. patient 30-39min; chronic exacerbation, 2 stable chronic or 1 acute illness add add modifier 95 for video, (do not use for phone, instead use 98175-32) [facility] 11[place]29/2023 Estab. patient 30-39min; chronic exacerbation, 2 stable chronic or 1 acute illness add add modifier 95 for video, (do not use for phone, instead use 04089-59) [facility] 11[place]29/2023 Estab. patient 30-39min; chronic exacerbation, 2 stable chronic or 1 acute illness add add modifier 95 for video, (do not use for phone, instead use 24617-16) [facility] 11[place]29/2023 Estab. patient 30-39min; chronic exacerbation, 2 stable chronic or 1 acute illness add add modifier 95 for video, (do not use for phone, instead use 30846-35) [facility] 11[place]29/2023 Estab. patient 30-39min; chronic exacerbation, 2 stable chronic or 1 acute illness add add modifier 95 for video, (do not use for phone, instead use 35138-14) [facility] 11/29/2023 Estab. patient 20-29min; 1 stable chronic or 2 minor; add add modifier 95 for video, modifier 93 for phone [facility] [place] 07/16/2024 Type 2 diabetes mellitus wit h other diabetic ophthalmic complicationGlaucoma in diseases classified elsewhereChronic obstructive pulmonary disease, unspecifiedUnspecified cataractOveractive bladderPersonal history of malignant neoplasm of breastEndocrine disorder, unspecifiedImmunodeficiency due to conditions classified elsewhereUnsp place in unsp [facility] ([facility]) residence as placeUnsteadiness on feetUnspecified fall, sequelaOther problems related to medical facilities and other health care Estab. patient 20-29min; 1 stable chronic or 2 minor; add add modifier 95 for video, modifier 93 for phone [facility] [place] 07/16/2024 Estab. patient 20-29min; 1 [...] Current Smoking Status Current every day smoker 2025-01-18 Sex Female Gender identity Woman History of [...] (do not use for phone, instead use 90129-77) 35481 2022-03-18 No Data Available No Data Availa ble RN, CN or CP time with patient by phone; use with 1111F, BP, A1c or other CPTII codes 29445 2022-07-08 No Data Available No Data Avai lable Medications prescribed in hospital were reviewed and reconciled against what they were taking prior to admission during today's visit. (1111F) 1111F 2022-07-08 No Data Available No Data Availa ble Estab. patient 30-39min; chronic exacerbation, 2 stable chronic or 1 acute illness add add modifier 95 for video, (do not use for phone, instead use 11605-31) 91718 2022-09-02 No Data Available No Data Availa [...] (do not use for phone, instead use 87849-20) 81646 2023-11-29 No Data Available No Data Availa [...] 95 for video, modifier 93 for phone 33324 2024-07-16 No Data Available No Data Availa [...] 95 for video, modifier 93 for phone 56277 2024-08-01 No Data Available No Data Availa [...] Some Help Needed; Toileting: Independent/needs help 2024-07-17 OFFICE SERVICES SPECIALIST daily 2022-03-18 Cane 2023-11-29 Fall in last [...] call CB 27/12 w/ any concerns/questions, verbal understanding[facility]: Complete [facility] 07/28/22 [...] fever, or leg swelling call us at [phone]. We are here to help.RX: Myrbetriq, estradiol, vagisilWears a pad for protectionRX: raloxifeneFollows Oncology every 6 moRX: albuterol inhaler and SymbicortHas nebulizer Pulse ox 98% - checks dailyFollows PCP every 6 monthsimmunodeficiency d/t conditions classified elsewhere based on member has a documented diagnosis that includes malignant neoplasm of female breast, monitor closely for s/s infections/p fall Gait unsteady R26.81, W19.XXXSRequesting lightweight , 152 2024-07-16 08:46:27 Functional Status As sessed [...] needs that may arise.07/16/24 RX: MetforminGlucometer Checks [id number] 6.4 on 02/28/24 per outside careRoutine diabetic Eye ExamsRX: Myrbetriq, estradiol, vagisilWears a pad for protection 07/16/24Continues to have urinary frequency and OAB symptoms. Stopped Myrbetriq and started Oxybutynin - Advised on sx to monitor for. Scheduled f/up with Celsias in 2 weeks to evaluate.RX: raloxifeneFollows Oncology [...] infections/p fall Gait unsteady R26.81, W19.XXXSRequesting lightweight [id number], 152Patient reporting on 07/16/24 she is unable [...] sx to monitor for. Scheduled f/up with Celsias in 2 weeks to evaluate. 08/01/24 was [...] ER. 2022-03-18 Discussed how to con tact [facility] via phone or tablet. 2022-09-02 1. Remember to keep all appointments with your PCP.2. Take all medication on time and try to eat healthy3. Call if you have questions or concerns before you go to the ER.4. Discussed how to contact [facility] via phone or tablet. 2024-07-16 Continue [...]
--- OUTSIDE RECORDS SUMMARY | 2025-01-18 11:54 | XMS_ITS | Encounter Summary ---
Author Organization [employer] Address [address] [place] [address] Care Team Providers Care Media Planner / Buyer Name Role Phone Name, Oscar CALI Primary Care Provider [phone] Reason for Visit * Reason Onset Date Comments Triage 09/03/2022 Encounter Details Date Type Department Care Team ([facility] st Contact Info) Description 09/03/2022 Telephone [facility] [address] [place] [address] [phone] Name, MD Oscar [address] [place], [place] [phone] Triage Social History Tobacco Use Types Packs/Day [...] accepted this outcome Please contact pt at [phone] documented in this encounter Plan of Treatment Upcoming Encounters Date Type Department Care Team (Late st Contact Info) Description 04/02/2025 11:30 AM EDT Office Visit [facility] [address] [place] [address] Name, MD Oscar [address] [place] [address] 04/22/2025 1:00 PM EST Office Visit [facility] [address] [place] [address] Yissel Ramos OD [address] [place] [address] documented as of this encounter Visit Diagnoses Diagnosis Injury of left knee, subsequent encounter- Primary documented in this encounter Care Teams Media Planner / Buyer Relationship Specialty Start Date End Date NameOscar MD [address] [place] [address] PCP - General Family Medicine 08/19/15 documented as of this encounter
--- OUTSIDE RECORDS SUMMARY | 2025-01-18 11:55 | XMS_ITS | Patient Health Record ---
Author Organization [facility] Address [address] [place] [address] Care Team Providers Care Food Production Associate Name Role Phone Name Oscar CALI Primary Care Provider Ethan Moncada [phone] Allergies Allergen (clinical drug ingredient) Drug/Non Drug [...] W/U Status Risk Notes Problem Pre-surgery evaluation (963111315) Other specified pre-operative examination (V72.83) Active confirmed Problem Colon cancer screening (627108138) Colon cancer screening (V76.51) Active confirmed Problem History of adenomatous polyp of colon (729775878) History of adenomatous polyp of colon (V12.72) Active confirmed Plan Of Treatment Future Test Test Name Order Date COLONOSCOPY 09/19/2014 Insurance Providers Payer Name Payer Address Payer Phone Subscriber Number Group Number Insured Name Patient Relationship to Insured Coverage Start Date Coverage End Date [facility] 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 iHguera [facility]sp[facility] disc surgery [facility]
== END 2025-01-18 11:52 | disposition home or self-care (01) ==
LOC: HO.HHCX 11:51
PROVIDERS: PCP Internal Medicine Geriatric Medicine; Visit Provider Internal Medicine Geriatric Medicine
DX: M25.562 Pain in left knee (principal); G89.29 Other chronic pain
CPT/HCPCS: 73564

== ENCOUNTER → 2025-01-18 11:57 | Outpatient (BNV) | payer OTHER, SELFPAY | PROVIDERS: PCP Internal Medicine Geriatric Medicine; Visit Provider Radiology Diagnostic Radiology | DX: M17.12 Unilateral primary osteoarthritis, left knee (principal) | CPT/HCPCS: 73564 ==

== ENCOUNTER 2025-01-25 10:12 | Outpatient (REF) | payer OTHER, SELFPAY ==
--- OUTSIDE RECORDS SUMMARY | 2025-01-25 10:17 | XMS_ITS | Encounter Summary ---
Author Organization [employer] Address [address] [facility] [address] [place] [address] Care Team Providers Care Player Services Representative Name Role Phone Name, Oscar CALI Primary Care Provider [phone] Reason for Visit * Reason Onset Date Comments Triage 09/03/2022 Encounter Details Date Type Department Care Team ([facility] st Contact Info) Description 09/03/2022 Telephone [facility] [address] [place] [address] [phone] Name, MD Oscar [address] [place], [place] [phone] Triage Social History Tobacco Use Types Packs/Day [...] accepted this outcome Please contact pt at [phone] documented in this encounter Plan of Treatment Upcoming Encounters Date Type Department Care Team (Late st Contact Info) Description 04/02/2025 11:30 AM EDT Office Visit [facility] [address] [place] [address] Name, MD Oscar [address] [place] [address] 04/22/2025 1:00 PM EST Office Visit [facility] [address] [place] [address] Yissel Ramos OD [address] [place] [address] documented as of this encounter Visit Diagnoses Diagnosis Injury of left knee, subsequent encounter- Primary documented in this encounter Care Teams Player Services Representative Relationship Specialty Start Date End Date NameOscar MD [address] [place] [address] PCP - General Family Medicine 08/19/15 documented as of this encounter
--- OUTSIDE RECORDS SUMMARY | 2025-01-25 10:17 | XMS_ITS | Patient Health Record ---
Author Organization [facility] Address [address] [place] [address] Care Team Providers Care Property Officer Name Role Phone Name Oscar CALI Primary Care Provider Ethan Moncada [phone] Allergies Allergen (clinical drug ingredient) Drug/Non Drug [...] W/U Status Risk Notes Problem Pre-surgery evaluation (772251785) Other specified pre-operative examination (V72.83) Active confirmed Problem Colon cancer screening (254775548) Colon cancer screening (V76.51) Active confirmed Problem History of adenomatous polyp of colon (007040848) History of adenomatous polyp of colon (V12.72) Active confirmed Plan Of Treatment Future Test Test Name Order Date COLONOSCOPY 09/19/2014 Insurance Providers Payer Name Payer Address Payer Phone Subscriber Number Group Number Insured Name Patient Relationship to Insured Coverage Start Date Coverage End Date [facility] 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 [place]spine disc surgery [facility]
--- OUTSIDE RECORDS SUMMARY | 2025-01-25 10:17 | XMS_ITS ---
Author Name Elvie Francis NP Address [address] [place] [address] Phone [phone] [facility] Care Team Providers Care Planning Manager Name Role Phone Elvie Francis Unavailable [phone] Reason for Referral Not Available Allergies, adverse [...] a MEAL 2021-09-15 No Data Available Nystatin [id number] UNIT/GM Crm APPLY TO THE AFFECTED AREA(S) [...] BY TANNER TH AT BEDTIME 2024-02-28 2024-07-16 Wattblock 2 w/Device Kit USE DIR ECTED TO [...] fever, or leg swelling call us at [phone]. We are here to help. Fall in [...] 0 7 N/A 07/16/24 RX: MetforminGlucometer Checks [id number] 6.4 on 02/28/24 per outside careRoutine diabetic [...] Pain Documented on a Pain Scale (1125F) [facility] [place] 03[place]18/2022 Pain Assessment - Pain Documented on a Pain Scale (1125F) [facility] [place] 03[place]18[place]20[place] Pain Assessment - Pain Documented on a Pain Scale (1125F) [facility] [place] 03/18[place]20[place] Pain Assessment - Pain Documented on a Pain Scale (1125F) [facility] [place] 03/18/2022 Pain Assessment - Pain Documented on a Pain Scale (1125F) [facility] [place] 03/18/2022 Pain Assessment - Pain Documented on a Pain Scale (1125F) [facility] [place] 03/18/2022 Pain Assessment - Pain Documented on a Pain Scale (1125F) [facility] [place] 03/18/2022 Pain Assessment - Pain Documented on a Pain Scale (1125F) [facility] [place] 03/18/2022 Pain Assessment - Pain Documented on a Pain Scale (1125F) [facility] [place] 03/18/2022 Malignant neoplasm of unspec ified site of left female breastType 2 diabetes mellitus with diabetic cataractType 2 diabetes mellitus with other diabetic ophthalmic complicationUnspecified cataractUnspecified glaucomaChronic obstructive pulmonary disease, unspecifiedOveractive bladder RN, CN or CP time with patient by phone; use with 1111F, BP, A1c or other CPTII codes [facility] 07[place]2022 Encounter for other specifie d aftercare RN, CN or CP time with patient by phone; use with 1111F, BP, A1c or other CPTII codes [facility] [place] 07[place] Estab. patient 30-39min; chronic exacerbation, 2 stable chronic or 1 acute illness add add modifier 95 for video, (do not use for phone, instead use 44864-82) [facility] ([place]) 09/02/2022 Overactive bladderType 2 risa betes mellitus with other diabetic ophthalmic complicationUnspecified cataractUnspecified glaucomaMalignant neoplasm of unspecified site of left female breastEndocrine disorder, unspecifiedChronic obstructive pulmonary disease, unspecifiedImmunodeficiency due to conditions classified elsewhere Estab. patient 30-39min; chronic exacerbation, 2 stable chronic or 1 acute illness add add modifier 95 for video, (do not use for phone, instead use 48690-91) [facility] ([place] 09/02/2022 Estab. patient 30-39min; chronic exacerbation, 2 stable chronic or 1 acute illness add add modifier 95 for video, (do not use for phone, instead use 73956-66) [facility] ([place] 09/02/2022 Estab. patient 30-39min; chronic exacerbation, 2 stable chronic or 1 acute illness add add modifier 95 for video, (do not use for phone, instead use 04418-85) [facility] 09[place]02[place]20[place] Estab. patient 30-39min; chronic exacerbation, 2 stable chronic or 1 acute illness add add modifier 95 for video, (do not use for phone, instead use 86452-27) [facility] ([place] 09/02/2022 Estab. patient 30-39min; chronic exacerbation, 2 stable chronic or 1 acute illness add add modifier 95 for video, (do not use for phone, instead use 90590-00) [facility] ([place] 09/02/2022 Estab. patient 30-39min; chronic exacerbation, 2 stable chronic or 1 acute illness add add modifier 95 for video, (do not use for phone, instead use 93483-44) [facility] [place] 09[place]02[place]20[place] Estab. patient 30-39min; chronic exacerbation, 2 stable chronic or 1 acute illness add add modifier 95 for video, (do not use for phone, instead use 34479-81) [facility] ([place] 09/02/2022 Estab. patient 30-39min; chronic exacerbation, 2 stable chronic or 1 acute illness add add modifier 95 for video, (do not use for phone, instead use 28766-63) [facility] ([place] 09/02/2022 Estab. patient 30-39min; chronic exacerbation, 2 stable chronic or 1 acute illness add add modifier 95 for video, (do not use for phone, instead use 62028-97) [facility] ([place] 11/29/2023 Type 2 diabetes mellitus wit h other diabetic ophthalmic complicationType 2 diabetes mellitus with diabetic cataractOther problems related to medical facilities and other health careOveractive bladderMalignant neoplasm of unspecified site of left female breastEndocrine disorder, unspecifiedChronic obstructive pulmonary disease, unspecifiedUnspecified asthma, uncomplicatedImmunodeficiency due to conditions classified elsewhereUnsteadiness on feetUnspecified fall, sequelaUnsp place [facility] Estab. patient 30-39min; chronic exacerbation, 2 stable chronic or 1 acute illness add add modifier 95 for video, (do not use for phone, instead use 26861-90) [facility] [place] 11[place]29/2023 Estab. patient 30-39min; chronic exacerbation, 2 stable chronic or 1 acute illness add add modifier 95 for video, (do not use for phone, instead use 02711-30) [facility] ([place]/20[place] Estab. patient 30-39min; chronic exacerbation, 2 stable chronic or 1 acute illness add add modifier 95 for video, (do not use for phone, instead use 42165-79) [facility] [place] 11[place]29/2023 Estab. patient 30-39min; chronic exacerbation, 2 stable chronic or 1 acute illness add add modifier 95 for video, (do not use for phone, instead use 81959-74) [facility] 11[place]29/2023 Estab. patient 30-39min; chronic exacerbation, 2 stable chronic or 1 acute illness add add modifier 95 for video, (do not use for phone, instead use 08963-32) [facility]/20[place] Estab. patient 30-39min; chronic exacerbation, 2 stable chronic or 1 acute illness add add modifier 95 for video, (do not use for phone, instead use 25078-42) [facility]29/20[place] Estab. patient 30-39min; chronic exacerbation, 2 stable chronic or 1 acute illness add add modifier 95 for video, (do not use for phone, instead use 10191-40) [facility]29/2023 Estab. patient 30-39min; chronic exacerbation, 2 stable chronic or 1 acute illness add add modifier 95 for video, (do not use for phone, instead use 99717-20) [facility]/2023 Estab. patient 30-39min; chronic exacerbation, 2 stable chronic or 1 acute illness add add modifier 95 for video, (do not use for phone, instead use 07177-77) [facility] [place] 11[place]29/2023 Estab. patient 20-29min; 1 stable chronic or 2 minor; add add modifier 95 for video, modifier 93 for phone [facility] [place] 07/16/2024 Type 2 diabetes mellitus wit h other diabetic ophthalmic complicationGlaucoma in diseases classified elsewhereChronic obstructive pulmonary disease, unspecifiedUnspecified cataractOveractive bladderPersonal history of malignant neoplasm of breastEndocrine disorder, unspecifiedImmunodeficiency due to conditions classified elsewhereUnsp place in [facility]) residence as placeUnsteadiness on feetUnspecified fall, sequelaOther problems related to medical facilities and other health care Estab. patient 20-29min; 1 stable chronic or 2 minor; add add modifier 95 for video, modifier 93 for phone [facility] ([place] 07/16/20[place] Estab. patient 20-29min; 1 stable [...] Current Smoking Status Current every day smoker 2025-01-25 Sex Female Gender identity Woman History of [...] (do not use for phone, instead use 23358-25) [id number] 2022-03-18 No Data Available No Data Availa ble RN, CN or CP time with patient by phone; use with 1111F, BP, A1c or other CPTII codes 33818 2022-07-08 No Data Available No Data Avai lable Medications prescribed in hospital were reviewed and reconciled against what they were taking prior to admission during today's visit. (1111F) 1111F 2022-07-08 No Data Available No Data Availa ble Estab. patient 30-39min; chronic exacerbation, 2 stable chronic or 1 acute illness add add modifier 95 for video, (do not use for phone, instead use 19435-76) 27766 2022-09-02 No Data Available No Data Availa [...] (do not use for phone, instead use 10785-57) 40139 2023-11-29 No Data Available No Data Availa [...] 95 for video, modifier 93 for phone [id number] 2024-07-16 No Data Available No Data Availa [...] 95 for video, modifier 93 for phone [id number] 2024-08-01 No Data Available No Data Availa [...] Some Help Needed; Toileting: Independent/needs help 2024-07-17 [employer] daily 2022-03-18 Cane 2023-11-29 Fall in last [...] call CB 27/12 w/ any concerns/questions, verbal understanding[facility]: Complete [facility] 07/28/22 as [...] fever, or leg swelling call us at [phone]. We are here to help.RX: Myrbetriq, estradiol, [...] needs that may arise.07/16/24 RX: MetforminGlucometer Checks [id number] 6.4 on 02/28/24 per outside careRoutine diabetic Eye ExamsRX: Myrbetriq, estradiol, vagisilWears a pad for protection 07/16/24Continues to have urinary frequency and OAB symptoms. Stopped Myrbetriq and started Oxybutynin - Advised on sx to monitor for. Scheduled f/up with [facility] in 2 weeks to evaluate.RX: raloxifeneFollows Oncology [...] infections/p fall Gait unsteady R26.81, W19.XXXSRequesting lightweight [id number], 152Patient reporting on 07/16/24 she is unable [...] sx to monitor for. Scheduled f/up with [facility] in 2 weeks to evaluate. 08/01/24 was [...] ER. 2022-03-18 Discussed how to con tact [facility] via phone or tablet. 2022-09-02 1. Remember to keep all appointments with your PCP.2. Take all medication on time and try to eat healthy3. Call if you have questions or concerns before you go to the ER.4. Discussed how to contact [facility] via phone or tablet. 2024-07-16 Continue taking [...]
[2025-01-25 12:25] LABS: Hemoglobin A1C 173.3575 umol/L; Total Hemoglobin (HGBA1C) 3490.3370 umol/L
[2025-01-25 12:40] LABS: Microalbum/Creatinine Ratio Ur 77.7 ug/mg cr (<30)
[2025-01-25 13:26] LABS: Alanine Aminotransferase 15 U/L (0-31); Albumin Level 4.5 g/dL (3.5-5.0); Alkaline Phosphatase 59 U/L (39-117); Anion Gap 13 (12-20); Aspartate Amino Transferase 23 U/L (5-31); Blood Urea Nitrogen 14 mg/dL (9-16); Calcium 9.3 mg/dL (8.4-10.2); Carbon Dioxide 28 mmol/L (22-29); Chloride 109 mmol/L (96-108); Cholesterol 177 mg/dL (<200); Estimated Glomerular Filt Rate > 60; HDL Cholesterol 36 mg/dL (>40); Potassium 4.0 mmol/L (3.3-5.1); Sodium 146 mmol/L (135-145); Total Protein 7.3 g/dL (6.5-8.0); Triglycerides 217 mg/dL (<150)
== END 2025-01-25 10:13 | disposition home or self-care (01) ==
LOC: HO.HHCL 10:12
PROVIDERS: PCP Internal Medicine Geriatric Medicine; Visit Provider Internal Medicine Geriatric Medicine
DX: E11.69 Type 2 diabetes mellitus with other specified complication (principal); R25.1 Tremor, unspecified
CPT/HCPCS: 36415; 80053; 80061; 82043; 82570; 83036; 84443